=== PATIENT | female | born 1975 | race Caucasian/White ===

== ENCOUNTER 2024-03-29 08:37 | Outpatient (OUT) | payer MEDICAID, SELFPAY ==
--- NOTE | 2024-03-29 08:41 | VEIN_ITS ---
Patient Name: JENNIFER MIGUEL MR#: [id number] : 1975 Exam Date: 03/29/2024 Ordering Doctor: DR ROSCOE SOTO M.D. RADIOLOGY REPORT PROCEDURE: [facility] - OFFICE VISIT INITIAL COMPARISON: None. PROGRESS NOTES: [age] year old female who presents with a 10 year history of leg swelling, cramping, itching, dilated bulging veins. The patient's leg symptoms are symmetric bilaterally. There has been a progression of symptoms over time with slow healing lower left leg wound and recent spontaneous development of lower right leg seeping wound. This increases with prolonged leg dependency. The patient describes an improvement with rest, elevation, compression stockings. The patient denies any signs and symptoms to suggest arterial ischemia. The patient describes a family history varicose veins on maternal side. The patient has drinking and smoking history of : Occasional alcohol consumption. No tobacco use. Patient has a past medical history significant for hyperdensity, obesity, atrial fibrillation. The patient denies a history of deep venous thrombus or pulmonary embolus. See separate history and physical for medication list. No prior treatment for varicose or spider veins. Current use of compression stockings. After review of nurse notes, history and physical exam I discussed at length the pathophysiology of venous hypertension and possible treatments, therapies and strategies available. We discussed at length the importance of elevating the lower extremities above the level of the heart, increased physical activity and compression stocking use. Ultrasound venous reflux study performed today was discussed at length with the patient. The report demonstrates mildly dilated and incompetent right great saphenous, left great saphenous, right anterior accessory saphenous veins. Dilated management expert veins within lower right leg adjacent the spontaneously developed seeping wound.. PHYSICAL EXAM: The right leg demonstrates several varicosities, scattered spider veins, spontaneously developed seeping wound/ ulceration, moderate edema, moderate skin discoloration. The left leg demonstrates several varicosities, scattered spider veins, slow healing wound, but no ulceration, moderate edema, moderate skin discoloration. Both thighs, legs and feet were symmetrically warm to the touch. Good posterior tibial and dorsalis pedis pulses were present bilaterally. VEIN/ Facility [facility] Comprehensive IMPRESSION: 1. Bilateral lower extremity venous insufficiency 2. Bilateral lower extremity varicose veins 3. Moderate lower extremity subcutaneous edema 4. No flow significant arterial disease 5. CEAP: C6, EC, AP, UT PLAN: 1. Continued use of compression stockings 2. Elevated legs and increased physical activity symptomatic relief 3. Endovenous laser ablation of right great saphenous vein, left great saphenous vein, right anterior accessory saphenous vein, lower right leg management expert veins adjacent a wound. 4. Microfoam chemical ablation of incompetent branch saphenous varicosities bilaterally. 5. Sclerotherapy as needed for reticular and spider veins. Nurse notes, history and physical were reviewed and confirmed, see attached forms. The nurse was present throughout the physical exam and consultation Dictated by: Ruben Weaver M.D. on 03/29/2024 at 10:41 Approved by: Ruben Weaver M.D. on 03/29/2024 at 10:47
--- NOTE | 2024-03-29 08:41 | VEIN_ITS ---
Patient Name: JENNIFER MIGUEL MR#: [id number] : 1975 Exam Date: 03/29/2024 Ordering Doctor: DR ROSCOE SOTO M.D. RADIOLOGY REPORT PROCEDURE: VC EXT VENOUS REFLUX RISHI LMTD COMPARISON: None. INDICATIONS: I83.813 Pain due to varicose veins of bilateral legs TECHNIQUE: Duplex imaging of the lower extremity to assess the deep and superficial venous system for the presence of deep or superficial venous incompetence and to document the location and severity of disease. The study includes evaluation of the great saphenous vein (GSV), anterior accessory saphenous vein (AASV) and small saphenous vein (SSV). Patient scanned in reverse Trendelenburg and standing. FINDINGS: RIGHT LOWER EXTREMITY: Saphenofemoral Junction Reflux: Yes 8.4mm 1.4 sec GSV: Diam (mm) Reflux/ Time (sec) Proximal Thigh 7.8 Yes 0.9 Mid Thigh 5.1 Yes 0.5 Distal Thigh 4.7 No Prox Calf 3.9 Yes 0.4 Mid Calf 3.0 Yes 0.5 Saphenopopliteal Junction Reflux: 3.9mm No SSV: Proximal Calf 2.3 No Mid Calf 2.8 Yes 0.2 AASV: Proximal Thigh 5.5 Yes 0.6 Mid Thigh 3.5 Yes 0.5 Distal Thigh Thrombi: No acute or chronic thrombus. Compressibility: Normal. Flow: Mild deep venous reflux. Severe venous reflux in popliteal vein. Preforator: Dist/medial lower leg 3.6 mm with 1.8s reflux. Mid medial lower leg near wound 4.0 mm with 0.6s reflux. Tech Note: Heterogeneous area proximal/lateral calf in area of lump measures 1.3 x 0.9 x 0.7 cm. Incompetent varicose vein proximal medial lower leg measures 4.0 mm with 0.5s reflux. Varicose vein mid medial lower leg measures 4.0 mm with 0.7s reflux. LEFT LOWER EXTREMITY: Saphenofemoral Junction Reflux: Yes 9.3 mm 1.0 sec GSV: Diam (mm) Reflux/Time (sec) Proximal Thigh 6.0 Yes 1.1 Mid Thigh 4.2 Yes 0.7 Distal Thigh 3.7 Yes 0.4 Prox Calf 2.1 Yes 0.3 Mid Calf 1.4 Yes 1.0 Saphenopopliteal Junction Relux: 2.5 mm No SSV: Proximal Calf 2.4 No Mid Calf 1.9 Yes 0.3 AASV: Proximal Thigh 2.8 Yes 0.7 Mid Thigh 1.8 Yes 0.6 Distal Thigh Thrombi: No acute or chronic thrombus. Compressibility: Normal. Flow: Mild deep venous reflux. Comfort Advisor: Mid/medial lower leg anterior to wound 3.7 mm with 1.5s reflux. Tech Note: Hyperechoic area lateral/posterior distal thigh in area of lump measures 2.0 x 1.4 x 1.0 cm. Incompetent varicose vein proximal medial lower leg measures 4.0 mm with 0.5s reflux. CONCLUSION: 1. Mildly dilated and incompetent great saphenous veins bilaterally, right anterior accessory saphenous vein, and incompetent/dilated tso veins within lower right leg adjacent spontaneous occurring wound. Dictated by: Ruben Weaver M.D. on 03/29/2024 at 10:12 Approved by: Ruben Weaver M.D. on 03/29/2024 at 10:41
== END 2024-03-29 08:38 | disposition home or self-care (01) ==
PROVIDERS: PCP Podiatrist Foot & Ankle Surgery; Visit Provider Podiatrist Foot & Ankle Surgery
DX: I83.813 Varicose veins of bilateral lower extremities with pain (principal)
CPT/HCPCS: 93970; G0463

== ENCOUNTER 2024-05-02 09:20 | Outpatient (OUT) | payer MEDICAID, SELFPAY ==
[2024-05-02 07:37] VITALS: BP 112/68; PULSE 68; O2SAT 100; BMI 34.3
--- NOTE | 2024-05-02 07:37 | V.VEINS.HP ---
Vital Signs 05/02/24 07:37 Height 5 ft 4 in Weight 90.718 kg BMI 34.3 BP 112/68 BP Location Left Brachial BP Position Sitting BP Cuff Size Adult BP Source Manual Cuff Respiration 16 Pulse 68 Pulse Oximetry (%) 100 Varicose Veins Henrique Chahal MD personally performed the services described in this documentation, as scribed by Haylie Mazariegos RN in my presence and it is both accurate and complete. IHaylie RN, am scribing for, and in the presence of, Dr. Henrique Santos and in the presence of the patient. thigh: bilateral, knee: bilateral, calf: bilateral, ankle: bilateral and yang: bilateral aching and burning 8 5 years Worsened in recent months: Yes standing analgesics (Tylenol), bed rest, elevating extremities, compression stockings and exercise Reports edema and leg edema Family history of varicose veins: yes Has patient had previous lower extremity venous surgery: No Patient has previously received the following treatment(s) for lower extremity varicose veins: Reports none Does patient have a history of : yes Does patient intend to have future pregnancies: no Has patient had lower extremity venous scan with relux testing: Yes Support hose used: Yes Problems walking or doing physical activity: No How does it affect you: Can't stand for long periods of time Do you walk much: Yes Do you stand much: Yes Medication compliance: good Review of Systems ROS Narrative Henrique Chahal MD personally performed the services described in this documentation, as scribed by Haylie Mazariegos RN in my presence and it is both accurate and complete. Haylie Chahal RN, am scribing for, and in the presence of, Dr. Henrique Santos and in the presence of the patient. Status of ROS 10 or more systems reviewed and unremarkable except as noted in history and below Cardiovascular Reports: edema and swelling of feet/ankles Musculoskeletal Reports: extremity pain, extremity swelling and muscle cramps Integumentary/Breast Reports: itching, sores and non-healing lesion [facility] Medical History (Updated 05/02/24 @ 07:47 by Haylie Mazariegos RN) Left upper arm injury ?S49.92XA - Unspecified injury of left shoulder and upper arm, initial encounter (ICD-10) Iron deficiency ?E61.1 - Iron deficiency (ICD-10) Obesity ?E66.9 - Obesity, unspecified (ICD-10) Hypertension ?I10 - Essential (primary) hypertension (ICD-10) Atrial fibrillation ?I48.91 - Unspecified atrial fibrillation (ICD-10) Pain due to varicose veins of both lower extremities ?I83.813 - Varicose veins of bilateral lower extremities with pain (ICD-10) Surgical History (Updated 05/02/24 @ 07:47 by Haylie Mazariegos RN) History of cholecystectomy ?Z90.49 - Acquired absence of other specified parts of digestive tract (ICD-10) History of appendectomy ?Z90.49 - Acquired absence of other specified parts of digestive tract (ICD-10) History of tubal ligation ?Z98.51 - Tubal ligation status (ICD-10) H/O cardiac radiofrequency ablation ?Z98.890 - Other specified postprocedural states (ICD-10) Family History (Updated 05/02/24 @ 07:48 by Haylie Mazariegos, RN) Father Family history of diabetes mellitus Family history of hypertension Mother Family history of hypertension Varicose veins of bilateral lower extremities with pain Grandmother Family history of stroke Social History (Updated 05/02/24 @ 07:49 by Haylie Mazariegos, RN) Within the past year, how often did you have a drink containing alcohol: 2-4 times a month Smoking status: Never smoker Non-prescribed substance use: denies use Meds Home Medications and Allergies Home Medications ?Medication ?Instructions ?Recorded ?Confirmed ?Type alprazolam 0.5 mg tablet 0.5 mg PO DAILY 05/02/24 05/02/24 History amlodipine 10 mg tablet 10 mg PO DAILY 05/02/24 05/02/24 History apixaban 5 mg tablet (Eliquis) 5 mg PO BID 05/02/24 05/02/24 History cetirizine 10 mg tablet (24Hour 10 mg PO DAILY 05/02/24 05/02/24 History Allergy) hydroxyzine HCl 25 mg tablet 25 mg PO BID 05/02/24 05/02/24 History losartan 100 1 tab PO DAILY 05/02/24 05/02/24 History mg-hydrochlorothiazide 25 mg tablet (Hyzaar) phentermine 37.5 mg tablet 37.5 mg PO DAILY 05/02/24 05/02/24 History (Adipex-P) potassium chloride 20 mEq oral 20 meq PO DAILY 05/02/24 05/02/24 History packet (Klor-Con) tizanidine 4 mg capsule 4 mg PO BID PRN muscle spasticity 05/02/24 05/02/24 History Allergies Allergy/AdvReac Type Severity Reaction Status Date / Time acetaminophen [From Percocet] Allergy Unknown Verified 04/14/24 17:03 cefaclor [From Ceclor] Allergy Unknown Verified 04/14/24 17:03 oxycodone [From Percocet] Allergy Unknown Verified 04/14/24 17:03 sulfamethoxazole Allergy Unknown Verified 04/14/24 17:03 [From Bactrim] trimethoprim [From Bactrim] Allergy Unknown Verified 04/14/24 17:03 Exam Narrative Exam Narrative: I, Henrique Santos MD personally performed the services described in this documentation, as scribed by Haylie Mazariegos RN in my presence and it is both accurate and complete. IHaylie RN, am scribing for, and in the presence of, Dr. Henrique Santos and in the presence of the patient. Constitutional Documenting provider has reviewed patient's vital signs: yes Common normals: oriented x3 Nutritional appearance: overweight Lymph Lymphatic: no lymphedema noted Cardio Peripheral pulses: posterior tibial pulses present and dorsalis pedis pulses present Extremity General: calf tenderness, edema and other findings Right lower extremity: lower leg Right lower leg: inspection and palpation Left lower extremity: lower leg Left lower leg: inspection and palpation Neuro Common normals: oriented x3 Assessment and Plan Assessment and Plan (1) Pain due to varicose veins of both lower extremities: Plan Plan of care: Risks and benefits of the procedure were discussed at length and informed written consent was obtained.? Time-out completed for verification of correct patient, procedure and site.? Staff present during time-out: Haylie Mazariegos RN,? Henrique Santos MD, [facility]. Time Out Time___958____ Patient prepped and procedure performed in usual sterile fashion. Risk of injury related to use of Diode laser and/or laser devices? __AG___ ? Serial number of laser used :? [id number] Control panel self test performed, electrical cords in good condition, floor is dry, basin of water available, fire extinguisher in close proximity_AG__ Polycarbonate goggles available and Laser warning signs outside of doors___AG___ Eye protection provided to patient and staff in room_AG___ Use of laser retardant drapes and dull blackened instruments as directed__AG___ Use of nonflammable prep solutions and use of saline soaked sponges to protect tissues as indicated _AG___ Length ____32____ cm Laser operated by __Dr. Santos Physician verbal confirmation laser locked in place__AG__ Laser start time (date and time) __05/02/24@_1012 Laser stop time(date and time) __05/02/24@__1016 Bello _8.0___ Average laser use 1543__Joules Average laser use____193____seconds Pulse continuous ___AG_? Pulse intermittent ___ Amount of Tumescent used __200____ Evaluated patient for signs and symptoms of electrical injury __AG___ ? Skin clear at insertion site __AG___ Patient tolerated procedure well.? Right leg Coban dressing applied to access site.? Applied Right thigh high leg compression stocking. Will return on 05/08/24 for Right leg limited venous ultrasound and exam. IHenrique MD personally performed the services described in this documentation, as scribed by Haylie Mazariegos RN in my presence and it is both accurate and complete. IHaylie RN, am scribing for, and in the presence of, Dr. Henrique Santos and in the presence of the patient. Procedures Procedure Note Date of procedure: 05/02/24 Pre-op diagnosis: I83.813 Procedure: EVLT of right GSV Surgeon: Henrique Santos
--- NOTE | 2024-05-02 07:59 | P.DS_ITS ---
Discharge Plan Discharge Disposition: Home, Self-Care Outpatient Diagnostics: VC Facility EST LMTD (Routine) Timeframe: 2 Weeks Facility: [facility] - Location: [facility]in Center Ordered By: Henrique Santos VC EXT Venous RT LMTD (Routine) Timeframe: 2 Weeks Facility: [facility] - Location: Vein Center Ordered By: Henrique Santos Follow Up Appointments: 05/08/24 Print Language: Tajik Discharge Date/Time: 05/02/24 10:30
--- NOTE | 2024-05-02 09:23 | VEIN_ITS ---
[address] [address] Patient Name: JENNIFER MIGUEL MRN: [id number] date: 1975 Sex: F Assigned Patient Location: Current Patient Location: Accession/Order Number: [id number] Exam Date: 05/02/2024 09:35 Report Date: 05/02/2024 10:31 At the request of: ROSCOE SOTO Procedure: VC Endovenous Ablation 1VeinRT EXAMINATION: VC Endovenous Ablation 1Vein, right great saphenous vein HISTORY: Pain due to varicose veins of bilateral legs I83.813 COMPARISON: No relevant comparison available. TECHNIQUE: The risks and benefits of the procedure had been previously discussed, and were rediscussed at length. Informed written consent was obtained. Mckenna Trinh and Haylie Palencia assisted. Time out procedure was performed. The right lower extremity was prepared and draped in the usual sterile fashion to allow knee flexion in the sterile field. Duplex ultrasound probe was draped in a sterile cover, sterile transmission gel was used. Venous mapping was performed with the areas of dilation and large tributaries marked. The total length was 32 cm from the entry 3 cm below the knee to 3 cm below the saphenofemoral junction. The diameter of the greater saphenous vein ranged from 4-8 mm. A 30 gauge needle and 1% buffered lidocaine was used to anesthetize the entry site. A 4 mm incision was made with a scalpel and the saphenous vein was entered percutaneously under direct ultrasound guidance with a micropuncture set, a single stick was successful in gaining access. A micro-guide wire was inserted and the needle removed. A micro-set including a dilator was inserted over the microwire and the needle and dilator were removed. A 0.018 guide wire was inserted through the micro-set and threaded through the saphenous vein to the saphenofemoral junction. The dilator was removed and an introducer sheath was inserted over the wire until the end of the sheath entered the saphenofemoral junction. The dilator and wire were removed and the 600 micron fiber was introduced and placed and positioned so that it extended beyond the sheath and was 3 cm peripheral to the saphenofemoral femoral junction. Final position of the fiber was determined by ultrasound guidance and duplex imaging. Tumescent anesthetic was delivered by ultrasound guidance. 200 cc of fluid was delivered along the entire course of the saphenous vein. The solution consisted of 1000 cc of normal saline with 40 mL of 1% lidocaine and 20 mL of sodium bicarbonate. A final positioning check was made. The energy source was turned on by means of the foot pedal and the fiber and sheath were withdrawn. The total number of Joules delivered was 1543. The laser was active for 193seconds under continuous pulse, average laser use of 8 J. Laser start time 10:12 AM 05/02/2024 . Laser stop time 10:16 AM 05/02/2024 . A duplex ultrasound revealed compressibility and flow at the saphenofemoral junction immediately after the procedure. Hemostasis at the access site was achieved. The skin incision of the saphenous vein was closed with a 4 x 4. A compression stocking was applied. Postop instructions were given. A follow up appointment was recommended and scheduled. The patient tolerated the procedure well and was discharged in good condition . VEIN/VC Endovenous Ablation 1VeinRT IMPRESSION: Technically successful endovenous laser ablation of the right great saphenous vein Electronically authenticated by: ROSCOE SOTO Date: 05/02/2024 10:31
[2024-05-02] MEDS: LIDOCAINE HCL 1% 100 MG/10 ML MDV INJ (10:36)
[2024-05-02] MEDS: 0.9 % SODIUM CHLORIDE 500 ML, LIDOCAINE HCL 20 ML, SODIUM BICARBONATE 10 MEQ INJ (10:38)
== END 2024-05-02 10:30 | disposition home or self-care (01) ==
LOC: VC 09:20
PROVIDERS: PCP Radiology Diagnostic Radiology; Visit Provider Radiology Diagnostic Radiology
DX: I83.813 Varicose veins of bilateral lower extremities with pain (principal)
CPT/HCPCS: 36478

== ENCOUNTER 2024-05-08 13:14 | Outpatient (OUT) | payer MEDICAID, SELFPAY ==
[2024-05-08 11:17] VITALS: BP 136/82; PULSE 71; O2SAT 98; BMI 34.1
--- NOTE | 2024-05-08 11:17 | VEINCLINIC_ITS ---
Vital Signs 05/08/24 11:17 Height 5 ft 4 in Weight 90 kg BMI 34.1 BP 136/82 BP Location Right Brachial BP Position Sitting BP Cuff Size Adult BP Source Manual Cuff Respiration 16 Pulse 71 Pulse Oximetry (%) 98 Varicose Veins Patient is in this day for follow up ultrasound post EVLT of right leg GSV. Henrique Chahal MD personally performed the services described in this documentation, as scribed by Letty Trinh RVT, RDMS in my presence and it is both accurate and complete. Letty Chahal RVT, RDMS, am scribing for, and in the presence of, Dr. Henrique Santos and in the presence of the patient. thigh: bilateral, knee: bilateral, calf: bilateral, ankle: bilateral and yang: bilateral aching and burning 8 5 years Worsened in recent months: Yes standing analgesics (Tylenol), bed rest, elevating extremities, compression stockings and exercise Reports edema and leg edema Family history of varicose veins: yes Has patient had previous lower extremity venous surgery: No Patient has previously received the following treatment(s) for lower extremity varicose veins: Reports none Does patient have a history of : yes Does patient intend to have future pregnancies: no Has patient had lower extremity venous scan with relux testing: Yes Support hose used: Yes Problems walking or doing physical activity: No How does it affect you: Can't stand for long periods of time Do you walk much: Yes Do you stand much: Yes Medication compliance: good Review of Systems ROS Narrative Patient complains of right medial thigh tenderness. Henrique Chahal MD personally performed the services described in this documentation, as scribed by Letty Trinh RVT, RDMS in my presence and it is both accurate and complete. Letty Chahal RVT, RDMS, am scribing for, and in the presence of, Dr. Henrique Santos and in the presence of the patient. Status of ROS 10 or more systems reviewed and unremark able except as noted in history and below Cardiovascular Reports: edema and swelling of feet/ankles Musculoskeletal Reports: extremity pain, extremity swelling and muscle cramps Integumentary/Breast Reports: itching, sores and non-healing lesion [facility] Medical History (Updated 05/02/24 @ 07:47 by Haylie Mazariegos RN) Left upper arm injury ?S49.92XA - Unspecified injury of left shoulder and upper arm, initial encounter (ICD-10) Iron deficiency ?E61.1 - Iron deficiency (ICD-10) Obesity ?E66.9 - Obesity, unspecified (ICD-10) Hypertension ?I10 - Essential (primary) hypertension (ICD-10) Atrial fibrillation ?I48.91 - Unspecified atrial fibrillation (ICD-10) Pain due to varicose veins of both lower extremities ?I83.813 - Varicose veins of bilateral lower extremities with pain (ICD-10) Surgical History (Updated 05/02/24 @ 07:47 by Haylie Mazareigos, STEFANO) History of cholecystectomy ?Z90.49 - Acquired absence of other specified parts of digestive tract (ICD- 10) History of appendectomy ?Z90.49 - Acquired absence of other specified parts of digestive tract (ICD- 10) History of tubal ligation ?Z98.51 - Tubal ligation status (ICD-10) H/O cardiac radiofrequency ablation ?Z98.890 - Other specified postprocedural states (ICD-10) Family History (Updated 05/02/24 @ 07:48 by Haylie Mazariegos, STEFANO) Father Family history of diabetes mellitus Family history of hypertension Mother Family history of hypertension Varicose veins of bilateral lower extremities with pain Grandmother Family history of stroke Social History (Updated 05/02/24 @ 07:49 by Haylie Mazariegos, STEFANO) Within the past year, how often did you have a drink containing alcohol: 2-4 times a month Smoking status: Never smoker Non-prescribed substance use: denies use Meds Home Medications and Allergies Home Medications ?Medication ?Instructions ?Recorded ?Confirmed ?Type alprazolam 0.5 mg tablet 0.5 mg PO DAILY 05/02/24 05/02/24 History amlodipine 10 mg tablet 10 mg PO DAILY 05/02/24 05/02/24 History apixaban 5 mg tablet (Eliquis) 5 mg PO BID 05/02/24 05/02/24 History cetirizine 10 mg tablet (24Hour 10 mg PO DAILY 05/02/24 05/02/24 History Allergy) hydroxyzine HCl 25 mg tablet 25 mg PO BID 05/02/24 05/02/24 History losartan 100 1 tab PO DAILY 05/02/24 05/02/24 History mg-hydrochlorothiazide 25 mg tablet (Hyzaar) phentermine 37.5 mg tablet 37.5 mg PO DAILY 05/02/24 05/02/24 History (Adipex-P) potassium chloride 20 mEq oral 20 meq PO DAILY 05/02/24 05/02/24 History packet (Klor-Con) tizanidine 4 mg capsule 4 mg PO BID PRN muscle spasticity 05/02/24 05/02/24 Hist ory Allergies Allergy/AdvReac Type Severity Reaction Status Date / Time acetaminophen [From Percocet] Allergy Unknown Verified 04/14/24 17:03 cefaclor [From Ceclor] Allergy Unknown Verified 04/14/24 17:03 oxycodone [From Percocet] Allergy Unknown Verified 04/14/24 17:03 sulfamethoxazole Allergy Unknown Verified 04/14/24 17:03 [From Bactrim] trimethoprim [From Bactrim] Allergy Unknown Verified 04/14/24 17:03 Exam Narrative Exam Narrative: Henrique Chahal MD personally performed the services described in this documentation, as scribed by Letty Trinh RVT, RDMS in my presence and it is both accurate and complete. Letty Chahal RVT, RDMS, am scribing for, and in the presence of, Dr. Henrique Santos and in the presence of the patient. Constitutional Documenting provider has reviewed patient's vital signs: yes Common normals: oriented x3 Nutritional appearance: overweight Lymph Lymphatic: no lymphedema noted Cardio Peripheral pulses: posterior tibial pulses present and dorsalis pedis pulses present Extremity General: calf tenderness, edema and other findings Right lower extremity: lower leg Right lower leg: inspection and palpation Left lower extremity: lower leg Left lower leg: inspection and palpation Neuro Common normals: oriented x3 Results Imaging Venous US: Radiologist's impression: Ultrasound demonstrates Heat induced thrombus visualized 1.7cm from the SFJ. The heat induced thrombus extends from groin to proximal calf. Assessment and Plan Assessment and Plan (1) Pain due to varicose veins of both lower extremities: Plan Patient in today for follow up ultrasound of lower extremity following treatment of EVLT of right leg GSV completed on 05/02/2024. Plan is for the patient to return for EVLT of left leg GSV. Patient is going to wait to schedule next procedure.
--- NOTE | 2024-05-08 13:11 | P.DS_ITS ---
Discharge Plan Discharge Disposition: Home, Self-Care Outpatient Diagnostics: VC Endovenous Ablation 1VeinLT (Routine) Timeframe: 2 Weeks Facility: [facility] - Location: Vein Center Ordered By: Henrique Santos Plan of Treatment: EVLT of left leg GSV. Print Language: Ugandan Discharge Date/Time: 05/08/24 13:53
--- NOTE | 2024-05-08 13:14 | VEIN_ITS ---
Patient Name: JENNIFER MIGUEL MR#: [id number] : 1975 Exam Date: 05/08/2024 Ordering Doctor: DR HENRIQUE SOTO M.D. RADIOLOGY REPORT PROCEDURE: VC EXT VENOUS RT LMTD COMPARISON: None. INDICATIONS: I80.01 - Phlebitis and thrombophlebitis of superficial ve... TECHNIQUE: Lower extremity gomez scale and Duplex Doppler evaluation of the deep venous system from the inguinal ligament through the calf veins. FINDINGS: REGION: Right lower extremity. THROMBI: Negative for DVT. Heat induced thrombus visualized 1.7cm from the SFJ. The heat induced thrombus extends from groin to proximal calf. COMPRESSIBILITY: Non-compressible segments corresponding to thrombus FLOW: Areas of no flow corresponding to thrombus CONCLUSION: Post ablation occlusion of the treated right great saphenous vein with heat induced thrombus 1.7 cm from the saphenofemoral junction Dictated by: Henrique Soto MD on 05/08/2024 at 13:30 Approved by: Henrique Soto MD on 05/08/2024 at 13:31
--- NOTE | 2024-05-08 13:14 | VEIN_ITS ---
Patient Name: JENNIFER MIGUEL MR#: [id number] : 1975 Exam Date: 05/08/2024 Ordering Doctor: DR HENRIQUE SOTO M.D. RADIOLOGY REPORT PROCEDURE: FACILITY EST LMTD VEIN CENTER - OFFICE VISIT FOLLOW UP COMPARISON: None. PROGRESS NOTES: The patient reports severe pain of the medial right thigh following the procedure. The patient came the emergency room where she was given pain medication. The pain has partially subsided but still remains moderate. The patient continues to wear her compression stocking as directed. I informed the patient that she likely had thrombophlebitis and recommended ibuprofen 400 milligrams 2-3 times per day over the next 7-10 days until the pain subsides. The thrombosed right great saphenous vein can be palpated. No erythema or warmth to suggest cellulitis or thrombophlebitis. No active ulceration. No bruising Review of the ultrasound performed the same day demonstrates occlusive thrombus extending throughout the treated right great saphenous vein with heat induced thrombus 1.7 cm from the saphenofemoral junction. The patient expressed a desire to hold her treatments until the pain went down on the right leg. VEIN/ Facility EST LMTD IMPRESSION: 1. Successful ablation of the right great saphenous vein(s). 2. Postprocedural thrombophlebitis. PLAN: Ibuprofen (2) 200 milligram tablets 2-3 times per day for the next 7-10 days. The patient was instructed to follow-up after her pain subsided for additional treatments. Nurse notes, history and physical were reviewed and confirmed, see attached forms. The nurse was present throughout the physical exam and consultation Dictated by: Henrique Soto MD on 05/08/2024 at 13:55 Approved by: Henrique Soto MD on 05/08/2024 at 13:57
--- NOTE | 2024-05-08 13:28 | V.VEINS.HP ---
Vital Signs 05/08/24 11:17 Height 5 ft 4 in Weight 90 kg BMI 34.1 Varicose Veins Henrique Chahal MD personally performed the services described in this documentation, as scribed by Letty Trinh RVT, RDMS in my presence and it is both accurate and complete. Letty Chahal RVT, RDMS, am scribing for, and in the presence of, Dr. Henrique Santos and in the presence of the patient. thigh: bilateral, knee: bilateral, calf: bilateral, ankle: bilateral and yang: bilateral aching and burning 8 5 years Worsened in recent months: Yes standing analgesics (Tylenol), bed rest, elevating extremities, compression stockings and exercise Reports edema and leg edema Family history of varicose veins: yes Has patient had previous lower extremity venous surgery: No Patient has previously received the following treatment(s) for lower extremity varicose veins: Reports none Does patient have a history of : yes Does patient intend to have future pregnancies: no Has patient had lower extremity venous scan with relux testing: Yes Support hose used: Yes Problems walking or doing physical activity: No How does it affect you: Can't stand for long periods of time Do you walk much: Yes Do you stand much: Yes Medication compliance: good Review of Systems ROS Narrative Henrique Chahal MD personally performed the services described in this documentation, as scribed by Letty Trinh RVT, RDMS in my presence and it is both accurate and complete. I, Letty Trinh RVT, RDMS, am scribing for, and in the presence of, Dr. Henrique Santos and in the presence of the patient. Status of ROS 10 or more systems reviewed and unremarkable except as noted in history and below Cardiovascular Reports: edema and swelling of feet/ankles Musculoskeletal Reports: extremity pain, extremity swelling and muscle cramps Integumentary/Breast Reports: itching, sores and non-healing lesion [facility] Medical History (Updated 05/02/24 @ 07:47 by Haylie Mazariegos RN) Left upper arm injury ?S49.92XA - Unspecified injury of left shoulder and upper arm, initial encounter (ICD-10) Iron deficiency ?E61.1 - Iron deficiency (ICD-10) Obesity ?E66.9 - Obesity, unspecified (ICD-10) Hypertension ?I10 - Essential (primary) hypertension (ICD-10) Atrial fibrillation ?I48.91 - Unspecified atrial fibrillation (ICD-10) Pain due to varicose veins of both lower extremities ?I83.813 - Varicose veins of bilateral lower extremities with pain (ICD-10) Surgical History (Updated 05/02/24 @ 07:47 by Haylie Mazariegos RN) History of cholecystectomy ?Z90.49 - Acquired absence of other specified parts of digestive tract (ICD-10) History of appendectomy ?Z90.49 - Acquired absence of other specified parts of digestive tract (ICD-10) History of tubal ligation ?Z98.51 - Tubal ligation status (ICD-10) H/O cardiac radiofrequency ablation ?Z98.890 - Other specified postprocedural states (ICD-10) Family History (Updated 05/02/24 @ 07:48 by Haylie Mazariegos, RN) Father Family history of diabetes mellitus Family history of hypertension Mother Family history of hypertension Varicose veins of bilateral lower extremities with pain Grandmother Family history of stroke Social History (Updated 05/02/24 @ 07:49 by Haylie Mazariegos RN) Within the past year, how often did you have a drink containing alcohol: 2-4 times a month Smoking status: Never smoker Non-prescribed substance use: denies use Meds Home Medications and Allergies Home Medications ?Medication ?Instructions ?Recorded ?Confirmed ?Type alprazolam 0.5 mg tablet 0.5 mg PO DAILY 05/02/24 05/02/24 History amlodipine 10 mg tablet 10 mg PO DAILY 05/02/24 05/02/24 History apixaban 5 mg tablet (Eliquis) 5 mg PO BID 05/02/24 05/02/24 History cetirizine 10 mg tablet (24Hour 10 mg PO DAILY 05/02/24 05/02/24 History Allergy) hydroxyzine HCl 25 mg tablet 25 mg PO BID 05/02/24 05/02/24 History losartan 100 1 tab PO DAILY 05/02/24 05/02/24 History mg-hydrochlorothiazide 25 mg tablet (Hyzaar) phentermine 37.5 mg tablet 37.5 mg PO DAILY 05/02/24 05/02/24 History (Adipex-P) potassium chloride 20 mEq oral 20 meq PO DAILY 05/02/24 05/02/24 History packet (Klor-Con) tizanidine 4 mg capsule 4 mg PO BID PRN muscle spasticity 05/02/24 05/02/24 History Allergies Allergy/AdvReac Type Severity Reaction Status Date / Time acetaminophen [From Percocet] Allergy Unknown Verified 04/14/24 17:03 cefaclor [From Ceclor] Allergy Unknown Verified 04/14/24 17:03 oxycodone [From Percocet] Allergy Unknown Verified 04/14/24 17:03 sulfamethoxazole Allergy Unknown Verified 04/14/24 17:03 [From Bactrim] trimethoprim [From Bactrim] Allergy Unknown Verified 04/14/24 17:03 Exam Narrative Exam Narrative: Henrique Chahal MD personally performed the services described in this documentation, as scribed by Letty Trinh RVT, RDMS in my presence and it is both accurate and complete. Letty Chahal RVT, RDMS, am scribing for, and in the presence of, Dr. Henrique Santos and in the presence of the patient. Results Imaging Venous US: Radiologist's impression: The ultrasound demonstrates Heat induced thrombus visualized 1.7cm from the SFJ. The heat induced thrombus extends from groin to proximal calf. Assessment and Plan Assessment and Plan (1) Pain due to varicose veins of both lower extremities: Plan Patient in today for follow up ultrasound of lower extremity following treatment of EVLT of right leg GSV completed on 05/02/2024. Plan is for the patient to return for EVLT of left leg GSV.
== END 2024-05-08 13:53 | disposition home or self-care (01) ==
LOC: VC 13:14
PROVIDERS: PCP Radiology Diagnostic Radiology; Visit Provider Radiology Diagnostic Radiology
DX: I80.01 Phlebitis and thrombophlebitis of superficial vessels of right lower extremity (principal)
CPT/HCPCS: 93971; G0463

== ENCOUNTER 2024-05-26 12:31 | Outpatient (OUT) | payer MEDICAID, SELFPAY ==
--- NOTE | 2024-05-26 09:33 | V.VEINS.HP ---
Varicose Veins Patient is in this day for EVLT of left GSV. Ruben Chahal MD personally performed the services described in this documentation, as scribed by Haylie Mazariegos RN in my presence and it is both accurate and complete. Haylie Chahal RN, am scribing for, and in the presence of, Dr. Ruben Weaver and in the presence of the patient. thigh: bilateral, knee: bilateral, calf: bilateral, ankle: bilateral and yang: bilateral aching and burning 8 5 years Worsened in recent months: Yes standing analgesics (Tylenol), bed rest, elevating extremities, compression stockings and exercise Reports edema and leg edema Family history of varicose veins: yes Has patient had previous lower extremity venous surgery: No Patient has previously received the following treatment(s) for lower extremity varicose veins: Reports none Does patient have a history of : yes Does patient intend to have future pregnancies: no Has patient had lower extremity venous scan with relux testing: Yes Support hose used: Yes Problems walking or doing physical activity: No How does it affect you: Can't stand for long periods of time Do you walk much: Yes Do you stand much: Yes Medication compliance: good Review of Systems ROS Narrative Ruben Chahal MD personally performed the services described in this documentation, as scribed by Haylie Mazariegos RN in my presence and it is both accurate and complete. Haylie Chahal RN, am scribing for, and in the presence of, Dr. Ruben Weaver and in the presence of the patient. Status of ROS 10 or more systems reviewed and unremarkable except as noted in history and below Cardiovascular Reports: edema and swelling of feet/ankles Musculoskeletal Reports: extremity pain, extremity swelling and muscle cramps Integumentary/Breast Reports: itching, sores and non-healing lesion [facility] Medical History (Updated 05/02/24 @ 07:47 by Haylie Mazariegos RN) Left upper arm injury ?S49.92XA - Unspecified injury of left shoulder and upper arm, initial encounter (ICD-10) Iron deficiency ?E61.1 - Iron deficiency (ICD-10) Obesity ?E66.9 - Obesity, unspecified (ICD-10) Hypertension ?I10 - Essential (primary) hypertension (ICD-10) Atrial fibrillation ?I48.91 - Unspecified atrial fibrillation (ICD-10) Pain due to varicose veins of both lower extremities ?I83.813 - Varicose veins of bilateral lower extremities with pain (ICD-10) Surgical History (Updated 05/02/24 @ 07:47 by Haylie Mazariegos RN) History of cholecystectomy ?Z90.49 - Acquired absence of other specified parts of digestive tract (ICD-10) History of appendectomy ?Z90.49 - Acquired absence of other specified parts of digestive tract (ICD-10) History of tubal ligation ?Z98.51 - Tubal ligation status (ICD-10) H/O cardiac radiofrequency ablation ?Z98.890 - Other specified postprocedural states (ICD-10) Family History (Updated 05/02/24 @ 07:48 by Haylie Mazariegos, STEFANO) Father Family history of diabetes mellitus Family history of hypertension Mother Family history of hypertension Varicose veins of bilateral lower extremities with pain Grandmother Family history of stroke Social History (Updated 05/02/24 @ 07:49 by Haylie Mazariegos RN) Within the past year, how often did you have a drink containing alcohol: 2-4 times a month Smoking status: Never smoker Non-prescribed substance use: denies use Meds Home Medications and Allergies Home Medications ?Medication ?Instructions ?Recorded ?Confirmed ?Type alprazolam 0.5 mg tablet 0.5 mg PO DAILY 05/02/24 05/02/24 History amlodipine 10 mg tablet 10 mg PO DAILY 05/02/24 05/02/24 History apixaban 5 mg tablet (Eliquis) 5 mg PO BID 05/02/24 05/02/24 History cetirizine 10 mg tablet (24Hour 10 mg PO DAILY 05/02/24 05/02/24 History Allergy) hydroxyzine HCl 25 mg tablet 25 mg PO BID 05/02/24 05/02/24 History losartan 100 1 tab PO DAILY 05/02/24 05/02/24 History mg-hydrochlorothiazide 25 mg tablet (Hyzaar) phentermine 37.5 mg tablet 37.5 mg PO DAILY 05/02/24 05/02/24 History (Adipex-P) potassium chloride 20 mEq oral 20 meq PO DAILY 05/02/24 05/02/24 History packet (Klor-Con) tizanidine 4 mg capsule 4 mg PO BID PRN muscle spasticity 05/02/24 05/02/24 History Allergies Allergy/AdvReac Type Severity Reaction Status Date / Time acetaminophen [From Percocet] Allergy Unknown Verified 04/14/24 17:03 cefaclor [From Ceclor] Allergy Unknown Verified 04/14/24 17:03 oxycodone [From Percocet] Allergy Unknown Verified 04/14/24 17:03 sulfamethoxazole Allergy Unknown Verified 04/14/24 17:03 [From Bactrim] trimethoprim [From Bactrim] Allergy Unknown Verified 04/14/24 17:03 Exam Narrative Exam Narrative: IRuben MD personally performed the services described in this documentation, as scribed by Haylie Mazariegos RN in my presence and it is both accurate and complete. I, Haylie Mazariegos RN, am scribing for, and in the presence of, Dr. Ruben Weaver and in the presence of the patient. Constitutional Documenting provider has reviewed patient's vital signs: yes Common normals: oriented x3 Nutritional appearance: overweight Lymph Lymphatic: no lymphedema noted Cardio Peripheral pulses: posterior tibial pulses present and dorsalis pedis pulses present Extremity General: calf tenderness, edema and other findings Right lower extremity: lower leg Right lower leg: inspection and palpation Left lower extremity: lower leg Left lower leg: inspection and palpation Neuro Common normals: oriented x3 Assessment and Plan Assessment and Plan (1) Pain due to varicose veins of both lower extremities: Plan Plan of care: Risks and benefits of the procedure were discussed at length and informed written consent was obtained.? Time-out completed for verification of correct patient, procedure and site.? Staff present during time-out: Haylie Mazariegos RN,? Ruben Weaver MD, Letty Trinh [facility]. Time Out Time Patient prepped and procedure performed in usual sterile fashion. Risk of injury related to use of Diode laser and/or laser devices? __AG___ ? Serial number of laser used :? [id number] Control panel self test performed, electrical cords in good condition, floor is dry, basin of water available, fire extinguisher in close proximity_AG__ Polycarbonate goggles available and Laser warning signs outside of doors___AG___ Eye protection provided to patient and staff in room_AG___ Use of laser retardant drapes and dull blackened instruments as directed__AG___ Use of nonflammable prep solutions and use of saline soaked sponges to protect tissues as indicated _AG___ Length cm Laser operated by ___Dr. Wevaer Physician verbal confirmation laser locked in place__AG__ Laser start time (date and time) _05/26/24@ Laser stop time(date and time) _05/26/24@ Bello _8.0___ Average laser use Joules Average laser use seconds Pulse continuous ___AG_? Pulse intermittent ___ Amount of Tumescent used Evaluated patient for signs and symptoms of electrical injury __AG___ ? Skin clear at insertion site __AG___ Patient tolerated procedure well.? Left leg Coban dressing applied to access site.? Applied Left thigh high leg compression stocking. Will return on // for Left leg limited venous ultrasound and exam. IRuben MD personally performed the services described in this documentation, as scribed by Haylie aMzariegos RN in my presence and it is both accurate and complete. I, Haylie Mazariegos RN, am scribing for, and in the presence of, Dr. Ruben Weaver and in the presence of the patient. Procedures Procedure Instructions Procedures EVLT of left GSV.
--- NOTE | 2024-05-26 09:42 | W.VEIN ---
Discharge Plan Discharge Disposition: Home, Self-Care Outpatient Diagnostics: VC Facility EST LMTD (Routine) Timeframe: 2 Weeks Facility: [facility] - Location: Vein Center Ordered By: Ruben Weaver VC EXT Venous LT Limited (Routine) Timeframe: 2 Weeks Facility: [facility] - Location: Vein Center Ordered By: Ruben Weaver Patient Instructions: Endovenous Ablation (DC) Print Language: Bengali
[2024-05-26 09:43] VITALS: BP 122/70; PULSE 67; O2SAT 97; BMI 34.3
--- NOTE | 2024-05-26 12:35 | VEIN_ITS ---
[address] [address] Patient Name: JENNIFER MIGUEL MRN: [id number] date: 1975 Sex: F Assigned Patient Location: Current Patient Location: Accession/Order Number: [id number] Exam Date: 05/26/2024 12:40 Report Date: 05/26/2024 14:55 At the request of: ROSCOE SOTO Procedure: VC Endovenous Ablation 1VeinLT EXAMINATION: VC Endovenous Ablation 1VeinLT HISTORY: I83.813 - Varicose veins of bilateral lower extremities w... The risks and benefits of the procedure had been previously discussed, and were rediscussed at length. Informed written consent was obtained. Haylie Mazariegos RN and Letty Trinh RDMS, RVT assisted. Time out procedure was performed. The left lower extremity was prepared and draped in the usual sterile fashion to allow knee flexion in the sterile field. Duplex ultrasound probe was draped in a sterile cover, sterile transmission gel was used. Venous mapping was performed with the areas of dilation and large tributaries marked. The total length was 35 cm from the entry proximal calf to 3 cm below the Saphenofemoral junction. The diameter of the left great saphenous vein ranged from 6.0 mm. A 30 gauge needle and 1% buffered lidocaine was used to anesthetize the entry site. A 4 mm incision was made with a scalpel and the saphenous vein was entered percutaneously under direct ultrasound guidance with a micropuncture set, a single stick was successful in gaining access. A micro-guide wire was inserted and the needle removed. A micro-set including a dilator was inserted over the microwire and the needle and dilator were removed. A guide wire was inserted through the micro-set and guided through the saphenous vein to the saphenofemoral junction. The dilator was removed and an introducer sheath was inserted over the wire until the end of the sheath entered the saphenofemoral junction. The dilator and wire were removed and the 600 micron fiber was introduced and placed and positioned so that it extended beyond the sheath and was 3 cm distal to the saphenofemoral or saphenopopliteal junction. Final position of the fiber was determined by ultrasound guidance and duplex imaging. Tumescent anesthetic was delivered by ultrasound guidance. 200 cc of fluid was delivered along the entire course of the saphenous vein. The solution consisted of 1000 cc of normal saline with 40 mL of 1% lidocaine and 20 mL of sodium bicarbonate. A final positioning check was made. The energy source was turned on by means of the foot pedal and the fiber and sheath were withdrawn. The total number of Joules delivered was 1854. The laser was active for 232 seconds under continuous pulse, average laser use of 8 J. Laser start time: 1:15 PM Laser stop time: 1:20 PM Date: 05/26/2024. A duplex ultrasound revealed compressibility and flow at the saphenofemoral junction immediately after the procedure. Hemostasis at the access site was achieved. The skin incision of the saphenous vein was closed with a 4 x 4. A compression stocking was applied. Postop instructions were given. A follow up appointment was recommended and scheduled. The patient tolerated the procedure well. Electronically authenticated by: LUIS ALBERTO ANDERSON Date: 05/26/2024 14:55
--- OUTSIDE RECORDS SUMMARY | 2024-05-26 12:37 | XMS_ITS | CCD ---
Author Organization [facility] Care Team Providers Care Rodeo Performer Name Role Phone Roscoe Stout MD Primary Care Provider VALERIA GARIBAY Attending Unavailable ROSCOE STOUT Referring Unavailable ROSCOE STOUT Primary Care Unavailable Roscoe Stout Primary Care Unavailable Roscoe Stout Attending Unavailable Roscoe Stout Primary Care Unavailable Roscoe tSout Primary Care Unavailable Dolce, Epi R Admitting Unavailable GirishRoscoe emery Primary Care Unavailable Dolce, Epi R Attending Unavailable Dolce, Epi R Admitting Unavailable Dolce, Epi R Attending Unavailable Roscoe Stout Primary Care Unavailable Roscoe Stout Primary Care Unavailable SOFI Ernandez Admitting Unavailable SOFI Ernandez Attending Unavailable Roscoe Stout Primary Care Unavailable Roscoe Stout Attending Unavailable Roscoe Stout Admitting Unavailable SOFI Ernandez Attending Unavailable Roscoe Stout Primary Care Unavailable SOFI Ernandez Admitting Unavailable ErnandezSOFI Attending Unavailable SOFI Ernandez Admitting Unavailable Roscoe Stout Primary Care Unavailable SOFI Ernandez Attending Unavailable SOFI Ernandez Admitting Unavailable Roscoe Stout Primary Care Unavailable ErnandezSOFI Attending Unavailable SOFI Ernandez Admitting Unavailable Roscoe Stout Primary Care Unavailable SOFI Ernandez Attending Unavailable Roscoe Stout Primary Care Unavailable SOFI Ernandez Admitting Unavailable Moreno Pappas Attending Unavailab le Roscoe Stout Primary Care Unavailable Moreno Pappas Admitting Unavailab le Roscoe Stout Primary Care Unavailable Roscoe Stout Attending Unavailable Roscoe Stout Admitting Unavailable Roscoe Stout Primary Care Unavailable Roscoe Stout Attending Unavailable Roscoe Stout Admitting Unavailable Dolce, Epi R Attending Unavailable Dolce, Epi R Admitting Unavailable Girish, Armando Primary Care Unavailable Girish, Armando Attending Unavailable Girish, Armando Primary Care Unavailable Girish, Armando Primary Care Unavailable Girish, Armando Attending Unavailable Girish, Armando Attending Unavailable Girish, Armando Primary Care Unavailable Awais, SOFI Tong Attending Unavailable Awais, SOFI Tong Admitting Unavailable Girish, Roscoe Yanez Primary Care Unavailable Awais, SOFI Tong Attending Unavailable Girish, Roscoe Yanez Primary Care Unavailable SOFI Ernandez Admitting Unavailable Dolce, Epi R Admitting Unavailable Dolce, Epi R Attending Unavailable Girish, Armando Primary Care Unavailable Girish, Armando Primary Care Unavailable Girish, Armando Attending Unavailable Girish, Armando Primary Care Unavailable Girish, Armando Attending Unavailable Girish, Armando Primary Care Unavailable Girish, Armando Attending Unavailable Girish, Armando Primary Care Unavailable Girish, Armando Attending Unavailable Girish, Armando Primary Care Unavailable Girish, Armando Attending Unavailable Girish, Armando Primary Care Unavailable Girish, Armando Attending Unavailable Girish, Armando Primary Care Unavailable Girish, Armando Attending Unavailable Girish, Armando Primary Care Unavailable Girish, Armando Attending Unavailable Dolce, Epi R Admitting Unavailable Dolce, Epi R Attending Unavailable Girish, Armando Primary Care Unavailable Allergies Allergy Classification Reported Allergen(s) Allergy Type Date of Onset Reaction(s) Facility (4 sources) Acetaminophen; Translations: [ACETAMINOPHEN] Drug Allergy 12-10-19 [facility] (4 sources) Acetaminophen / oxyCODONE; Translations: [OXYCODONE-ACETAMINO PHEN] Drug Allergy 03-15-20 [facility] (5 sources) Cefaclor; Translations: [CEFACLOR] Drug Allergy 03-15-20 [facility] (4 sources) oxyCODONE; Translations: [OXYCODONE HCL] Drug Allergy 12-10-19 [facility] (4 sources) Simvastatin; Translations: [SIMVASTATIN] Drug Allergy 01-08-20 [facility] (4 sources) Sulfamethoxazole / Trimethoprim; Translations: [SULFAMETHOXAZOLE-TR IMETHOPRIM] Drug Allergy 03-15-20 [facility] (4 sources) Sulfonamides (Antibiotic); Translations: [SULFA (SULFONAMIDE ANTIBIOTICS)] Propensity to adverse reactions to drug 03-15-20 [facility] (4 sources) Trimethoprim; Translations: [TRIMETHOPRIM] Drug Allergy 12-10-19 [facility] (1 source) Acetaminophen / oxyCODONE; Translations: [acetaminophen-oxyCO DONE] Drug Allergy [facility] (1 source) Sulfamethoxazole / Trimethoprim; Translations: [Septra] Drug Allergy [facility] (1 source) Sulfamethoxazole / Trimethoprim; Translations: [Bactrim] Drug Allergy [facility] (1 source) sulfa drug; Translations: [sulfa drug] Propensity to adverse reactions to drug (disorder) [facility] Medications Current Medications Medication Drug Class(es) Dates Sig (Normalized) Sig (Original) [id number] 200 actuat albuterol 0.09 mg/actuat metered dose inhaler (3 sources) beta2-Adrenergic Agonist take 2 puff(s) by inhalation every six hours as needed for wheezing albuterol (PROVENTIL HFA;VENTOLIN HFA) 90 mcg/actuation inhaler Inhale 2 puffs every 6 (six) hours as needed for wheezing. 0 Active ALPRAZolam 0.5 mg oral tablet (3 sources) Benzodiazepine Start: 12-04-2021 take 1 tablet by mouth twice daily as needed ALPRAZolam (XANAX) 0.5 mg tablet Take 0.5 mg by mouth 2 (two) times a day as needed. 0 12/04/2021 Active apixaban 5 mg oral tablet (3 sources) Factor Xa Inhibitor Start: 11-02-2021 take 1 tablet by mouth twice daily apixaban (ELIQUIS) 5 mg tablet Take 5 mg by mouth 2 (two) times a day. 0 11/02/2021 Active cetirizine hydrochloride 10 mg oral tablet (3 sources) Histamine-1 Receptor Antagonist Start: 03-05-2022 cetirizine (ZyrTEC) 10 mg tablet 24 hr dilTIAZem hydrochloride 360 mg extended release oral capsule (3 sources) Calcium Channel Ken Start: 12-20-2023 take 1 capsule by mouth once daily dilTIAZem CD (CARDIZEM CD) 360 MG 24 hr capsule TAKE ONE CAPSULE BY MOUTH DAILY 30 capsule 0 12/20/2023 Active doxycycline hyclate 100 mg oral capsule (3 sources) Tetracycline-class Drug Start: 02-10-2022 doxycycline (VIBRAMYCIN) 100 mg capsule ferrous sulfate 325 mg oral tablet (3 sources) take 1 tablet by mouth once daily at breakfast ferrous sulfate 325 (65 FE) mg tablet Take 325 mg by mouth daily with breakfast. 0 Active furosemide 40 mg oral tablet (3 sources) Loop Diuretic take 1 tablet by mouth twice daily furosemide (LASIX) 40 mg tablet Take 40 mg by mouth 2 (two) times a day. 0 Active ibuprofen 200 mg oral tablet (3 sources) Nonsteroidal Anti-inflammatory Drug take 1 tablet by mouth every six hours as needed for pain ibuprofen (ADVIL,MOTRIN) 200 mg tablet Take 200 mg by mouth every 6 (six) hours as needed for pain. 0 Active lisinopril 40 mg oral tablet (3 sources) Angiotensin Converting Enzyme Inhibitor take 1 tablet by mouth once daily lisinopriL (PRINIVIL,ZESTRI L) 40 mg tablet Take 40 mg by mouth daily. 0 Active microencapsulated potassium chloride 20 meq extended release oral tablet (3 sources) potassium chloride (KLOR-CON M) 20 MEQ CR tablet Take 20 mEq by mouth 2 (two) times a day. 0 Active tiZANidine 4 mg oral tablet (3 sources) Central alpha-2 Adrenergic Agonist take 1 tablet by mouth in the morning tiZANidine (ZANAFLEX) 4 mg tablet Take 4 mg by mouth in the morning. 0 Active Problems Active Problems Problem Classification Problem Date Documented Da te Episodic/Chronic Asthma (3 sources) Asthma; Translations: [Unspecified asthma, uncomplicated] 12-11-2021 Chronic Cardiac dysrhythmias (8 sources) Paroxysmal atrial fibrillation; Translations: [Paroxysmal atrial fibrillation] Onset: 03-15-2020 03-15-2020 Chronic Disorders of lipid metabolism (3 sources) Mixed hyperlipidemia; Translations: [Mixed hyperlipidemia] Onset: 03-15-2020 03-15-2020 Chronic Essential hypertension (6 sources) Essential hypertension; Translations: [Essential (primary) hypertension] Onset: 10-24-2020 10-24-2020 Chronic Other nutritional; endocrine; and metabolic disorders (3 sources) Body mass index 30+ - obesity; Translations: [Obesity, unspecified] Onset: 03-15-2020 03-15-2020 Chronic Past or Other Problems Problem Classification Problem Date Documented Da te Episodic/Chronic Complications of surgical procedures or medical care (3 sources) Hematoma of skin; Translations: [Postprocedural hematoma of skin and subcutaneous tissue following other procedure] Onset: 01-28-2022 01-28-2022 Episodic Nonspecific chest pain (3 sources) Chest pain; Translations: [Chest pain, unspecified] Onset: 03-15-2020 03-15-2020 Episodic Results Test Name Value Interpretation Reference Range Facility Office/Clinic Noteon 024 Office/Clinic Note Patient: SOFIA MIGUEL Age: 48 years Sex: FEMALE : 1975 Associated Diagnoses: Obesity; Chronic diarrhea Author: Roscoe Stout MD A History of Present Illness 48-year-old female presents today 1 month follow-up of being on Adipex for obesity. She has not lost any weight while on the medication for the last 2 months. She is down from when she initially started the medication. She does continue to have chronic diarrhea. She is status postcholecystectomy and appendectomy. She has not had a colonoscopy. Has not seen gastro. We did try Colesytramine for her diarrhea but with no improvement. Review of Systems Constitutional: Negative. Ear/Nose/Mouth/Throat: Negative. Respiratory: Negative. Cardiovascular: Negative. Gastrointestinal: Diarrhea. Health Status Allergies: Allergic Reactions (Selected) Severity Not Documented Acetaminophen-oxyCODONE- No reactions were documented. Bactrim- Rash. Cefaclor- No reactions were documented. Septra- No reactions were documented. Sulfa drug- No reactions were documented., Allergies (5) Active Severity Reaction acetaminophen-oxyCODONE None Documented cefaclor None Documented Septra None Documented sulfa drug None Documented Bactrim Rash Current medications: (Selected) Prescriptions Prescribed ALPRAZolam 0.5 mg oral tablet: 0.5 mg = 1 tab(s), PO, BID, PRN: as needed for anxiety, 60 tab(s), 2 Refill(s) Adipex-P 37.5 mg oral tablet: 37.5 mg = 1 tab(s), Oral, Daily, 30 tab(s), 0 Refill(s) Eliquis 5 mg oral tablet: 1 tab(s), Oral, BID, 60 tab(s), 5 Refill(s) Potassium Chloride (Eqv-K-Tab) 20 mEq oral tablet, extended release: 1 tab(s), Oral, BID, 60 tab(s), 5 Refill(s) amLODIPine 10 mg oral tablet: See Instructions, TAKE ONE TABLET BY MOUTH DAILY, 30 tab(s), 9 Refill(s) cetirizine 10 mg oral tablet: See Instructions, TAKE ONE TABLET BY MOUTH DAILY, 90 tab(s), 2 Refill(s) cholestyramine 4 g/8.3 g oral powder for reconstitution: 1 packet(s), Oral, BID, dissolve in water or juice, 60 packet(s), 6 Refill(s) hydrOXYzine hydrochloride 25 mg oral tablet: 25 mg = 1 tab(s), Oral, q6hr (int), for 30 day(s), PRN: for itching, 120 tab(s), 0 Refill(s) hydrochlorothiazide-losa rtan 25 mg-100 mg oral tablet: 1 tab(s), Oral, Daily, 90 tab(s), 3 Refill(s) tiZANidine 4 mg oral tablet: 1 tab(s), PO, Once a day (at bedtime), 30 tab(s), 3 Refill(s), Home Medications (10) Active Adipex-P 37.5 mg oral tablet 37.5 mg = 1 tab(s), Oral, Daily ALPRAZolam 0.5 mg oral tablet 0.5 mg = 1 tab(s), PRN, PO, BID amLODIPine 10 mg oral tablet See Instructions cetirizine 10 mg oral tablet See Instructions cholestyramine 4 g/8.3 g oral powder for reconstitution 1 packet(s), Oral, BID Eliquis 5 mg oral tablet 1 tab(s), Oral, BID hydrochlorothiazide-losa rtan 25 mg-100 mg oral tablet 1 tab(s), Oral, Daily hydrOXYzine hydrochloride 25 mg oral tablet 25 mg = 1 tab(s), PRN, Oral, q6hr (int) Potassium Chloride (Eqv-K-Tab) 20 mEq oral tablet, extended release 1 tab(s), Oral, BID tiZANidine 4 mg oral tablet 1 tab(s), PO, Once a day (at bedtime) Problem list: Active Problems (8) Anxiety asthma HTN (hypertension) Hyperlipidemia ALVINO on CPAP Psoriasis Tobacco use Venous insufficiency (chronic) (peripheral) Physical Examination Vital Signs 05/22/2024 9:22 EDT Peripheral Pulse Rate 71 bpm Systolic Blood Pressure 100 mmHg Diastolic Blood Pressure 70 mmHg BP Site Left arm SpO2 100 % Measurements from flowsheet : Measurements 05/22/2024 9:22 EDT Height 162.0 cm Height/Length Measured (inches) 63.78 in Weight 100.43 kg Weight Measured (lbs) 221.41 lb Weight Dosing 100.430 kg Body Mass Index 38.27 kg/m2 Erin Body Weight Calculated 54.193 kg BSA Measured 2.13 m2 General: Alert and oriented, No acute distress. Neck: No carotid bruit, No jugular venous distention, No lymphadenopathy, No thyromegaly. Respiratory: Lungs are clear to auscultation, Respirations are non-labored, Breath sounds are equal. Cardiovascular: Normal rate, Regular rhythm, No murmur, Good pulses equal in all extremities. Gastrointestinal: Soft, Non-tender, Non-distended, Normal bowel sounds, No organomegaly. Impression and Plan Diagnosis Obesity (CTG17-LL E66.9). Plan: Discussed with patient will stop Adipex since it does not seem to be working. May come back to using it again at a later date but for right now with her other health issues can hold off.. Orders Orders Evaluation and Management: 29337 Office visit - established pt, Level 3 (Order): 05/22/2024 9:19 EDT, Qty: 1, Obesity - Chronic diarrhea. Diagnosis Chronic diarrhea (JJI21-RA K52.9). Course: Will refer to , reference services head for evaluation of chronic diarrhea. Most likely will need a colonoscopy.. Orders Orders Referral: Referral Ambulatory MAGR (Order): Gastroenterology, chronic diarrhea, Susan Mi DO, External Referral, 05/22/2024 9:41 EDT, Chronic diarrhea. [Electronica (more content not included)... [facility] Coding Summaryon 05-15-2024 Coding Summary HTMLBase 64 XaqktjtiMEi2hLz+PGhlYWQ+ QZ6IHMLmC60zxZZyaK1mU0RJ TElOSywgQVBQTElOSyIgbmFt KA7kbTJgSLQc IC8+HU4iYJYxNqhvdDEll8Y3 eKS9L30yor1vTKyvaTD1MCFw MwMbvmtad2poeFz2REwbJurd OyBt CQJwzI13FIY8qF00Vj02rSLn dJPap2iksMw3HmFpGURqRWB3 iJxrXAwzu0YhKGDhY95ndWKj c2U6 XXOvjPacuNZdGcLrhJD2gN5t SGimwfach9hwbxzoAcu0qi37 mEOhw4A6qMS8Y1SstsO9RXRp bGQg HjuyiAZGkF7lcxjgd4bbjcmy QwBhDUGhYJs1RAa1OSAlbJyy SsWnHW08UOE4COOddhLuS7Rj LWFs gSgbHyO0r7H0Vj4PG6DRNvxk A8MPFCFMRZizrGS+MQ23dh06 M1JfNnahBsz7XPVmXRS4hWE9 aD0n WMVfLCfpz2Y9nLQ6Z3MvchGo ly7xi5xmGBSnJLowM14jmEMn i0E4FCEbwKG8UWJxfGavNiHx aG93 Oyc+DYHhhLsug7WeKnbnj4jn f1qrjLi9KdtpBNJjceTowFsp SOK5l7ByFb7zTOMlyWW3yGO9 aD0i AwIwUhG2POdqF830TvLjvMQw LspxG88uO9RuzNH+PHRyPjx0 WMMwqKegPA4kY9ZgIUQoudwl bGVm hDihCS6kLQIubvbrIFDrvQ0n PVAdC6r8AkPsDwG2NHqxO4Fo NPFduxzyQk99lH5xVnKiIkX5 MGlu B1PefcN1PADolRFqSJhxSCI8 L21ou2M6RKDpGTBnZLW8bYJ9 mH2bjTjfzdxfgVMmmRpwepBj dGlj ECtgTFkrK898RZOpwNdcOlMl ZGluZyBEYXRlOiAgMDcvMjIv MjAyNDwvdGQ+RMUpGMO8lLqa PSAn aWKxIEjnCr9uhPiosSjaXF2h INJkxiwsQAJxnN8eLMJbzLNp wEmzNI4oGTUtcfarj434FmXt MHB0 YPLzfHOkB4NluN7rQyCgVYVh NACaN4IqrPUoBJgaV301BOdw KsA1QQJrnlJzV4WlQPYqxZaj OiB0 x0O0Yb8No2IxbvwqA4YqjFXs AyEyRkglCYc3W7DqCfxkaRW+ NT94XENmTP48WYo1KQY4uTaa PSdi QQVwR3SxrG8fVwUtWXBsCGJd Oyc+PHRhYmxlIHdpZHRoPScx NSOjJlNotTbvSO4oMy6xRIYl LWNv kPiimSYyTbDro4qrPHUvMBoj IC4crTciQ0BfoDM3UGIii5f4 Ux08Y96uF4GpnEC+PGNvbCB3 aWR0 qS7hArLtBsV1WFvmN114QwCp qFSlCktox6dgo3vwgYy7UdD4 IEDyiuUjoFqrMMW6h8WjOc14 Y29s IHdpZHRoPSIxNSUiIHZhbGln gw1yuK1wSo3+CBJpfQB6rOY0 zR7tNoHtByB2MZboI404HxVf cCIv Siusr9hmj0xifQp3JhPePKDk msYxpAtoGKC2y2YlZx21N0Po wPvgm1EeFrt5ne55tOEow8J9 bGU9 A3YtHHBkvtvvlNLwcKvmOQ5l HCYxiatmKLPhwI7xLMOqM8y9 XmPbIyK2RDqsA9MotjO9HLXz bGQg YHQuvAFLoK8dbjsbo7ludgps EnStUQTuMPd8ZDr2PFAteAvj KoTrCVS3CmK7FRF3dNWvnK6g bGln unlxdT1qQtv+OHP6pGEglLXG FD4mKxrjbXG+TLErECS1mNyz GXtjMONttT5tNITzU8f2CfPe LjA1 CWozL7NgmaB9PZJsnWBgDYNf zXDLgB1mvzlyw7exveuuUjJk ANJzBMo3KKi7CAFadVomQoWc ZWZ0 ZqF9WGF5fCWroE4ptLiotgoa bT2wHtc+DeoxlAihQKS9WFb9 J3BdYrk1FTGwnWxmGX7cuDBn ZGlu Is5srXlhrScmEK6nZUZilpho t684HhGva7dnDYHdkKPpVMgn VKQ1K63xo7A7RYInWAOtHYE2 dGV4 mY5oyXrkgirfnNWbsOwczhVe nMwrLZezTNspO220TGAmxWvr BpRgVJr9L3GrDxj4AIGggCns ZT0n oJSnAFetLw6ldAlqyHwuOP3p EUBaxoijb960ZkFhw6wrNBTd cJEkCZixVYN0N09hh5T0AZOo MDAw ASV9yUY1zL4crVyuaocphPVr oVvrzgRsxBmnZFpuBTkoY630 EAKgtCpxNtQqdWt4B7UnLbe4 ZCBz cStfOS6ocDCcLXofQt8fiNjj cOjoJU3mJQQgfjfer515RlNs r6brJGGlmTSvYDscYCE1Y00u b3I6 IWDgTBQvVDJ8hQW1qJ4raWzq bjogbGVmdDsgdmVydGljYWwt BJnxP654HWLpvOitQhBxbXqg bnQg TRutNBt8C5GgHqtzbAW+PC90 OOQjCW02fRFlzSLkt3vsjHn4 LvHzGTDaZSG9aNbtAQtzc7Jg ZXIt C82pmEVmn9E9LVGupZceqARd PqBgmYQ0cU1dNLxafizho1zi thbpEkyhr0bzre61dU29Q27o IHdp VMQtTKSqMBQiASFhyRkgyt4l zF9sPc5+ADJmhSR5wZL8gG5o XDKuByA3GSjjK840EnUvmKUb Pjxj f5mae1aqmHh4IwA5PVXqfmPl zWjqZOH9u7BfXt49K40xEEsk CRRzAROqJZRtIBUdmWqtnw8b dG9w Ii8+MBMgkNU6vAK4cA5mMeUl TiN8QMsbO493QkHybSCsMlqi J58nN8PgkVY+FMMjQqn4CPNy dHls LI7neTZzATibYg3eWOB3ChHg TnEsHTqaQ9FgKYCuykyxgjak yWR9VKEyQQVaaG91So2jeWge MTBw gMGHlA1exojgm3ihqsppEkEf AQEaJJz9OEs8RVCkfFrnNvTt JCH6PeI3HPB3cTHpeX2daEvf bjog tM2xD2NgPSXoirkdIx85oU4v EhRrJeN8XWoxHuv+H9JGXqwp K67CTlcTLUVAYXusqCO+PHRk IHN0 tVarDWxkFNFcaA0zWGQsD8w7 FoJkClW9FVkeR9CoWXOoaats Ym27cK8rEyWxOnV4QIosZ2Yh bnQ6 MCIjdSXrXAvoOEA4U10xm5Q5 CPVmJNEdHCR7fHT4jC2oiHjp bjogbGVmdDsgdmVydGljYWwt YWxp W906YOBcuAeiMeM9UlO9UoN1 IyG5W6YfUnn6QNJrsRrsTE6p kMAsZLmkTf8ebMlyoXqnCD9x NTBp vcvyQGDdoO4oTDBgqZPpxLra NW3zESPffptqe044HyYzJRM9 RSMypCFrI6MzmS0hNvZqVHRy MDAw F6EijXRmXVczR676BAtwAaF2 TACnlbRrE0GyMFKubLtpDjB9 k3Q6Wc78ZDFHXPAekouoaCC+ PHRk YZV8fQksYIbhPXDbsF7iGXHd X4c0ObYcGbC6JSgqZ9TwFIQw uxagOg62pS3uKkYhSgK3UMcr O2Zv krH6TGWvaKOrCUxcZTZ5M76h j4P7SMIgRZZvTIO2iSE4sN1y bGlnbjogbGVmdDsgdmVydGlj YWwt ZNcbB439SZQxjCwxVqXRGVFG RTwvdGQ+DPPdIUV0fTdlOKse TFMiuH6uLYRfI9z4HxBeCiO1 MGlu B8UlKXCofvtdJw17iZ5vPnCs KaD2DRpgI7UsoyI1AZDpnBFi EAybMVO7R38wp9M0GSIlOXZg MDA7 eLY3mX5lwCxerjttrOJnlIpb dnQghMygPNnfYTvsS321UEUi hEjzKsKeBKHnXW3csNfbvXS+ PC90 ou32Y9SsQozeWqb0RNGcSCT5 tQL1jM4nPUHdZHdal0F1cHA3 Z8SgunFzos5se5hfYEAmRUxf Y29s zTFoe8L1FPYasWX7QMKhdIsr DmXffB01Hvg+NIPyeWfru0Qe Wblca9koe2xxdOy7NnDbXNIk dmFs rJgoDHL5m2RvCf56N48mPMxc FZWyZCBhYYLoOJQvwPnflv5q lQ4iIe0+CNWzaSR3tXA3aV9t MjAl NdL4BZrdB084PnKsrAVjPmws x4mcv1lhfSi0YgJvELIazkEf fJbwIEG4y8RbRe16H3IbtNzo b3Vw Ydm6ot28xZUfi6J7pVR9E6Xm GOTliqefdERnzOyfMG0vNYCz wntjDXItfS4wEMQtO0e1ZtNx LjA1 CXsnU4VpeqU4WMVlkEHqWIBm tWLUnS9pcheuj4ernzibElSb RFWcQLh9DMq7ZYNxnDjgHpRh ZWZ0 NlP3NFB7tTAghQ0tiDukkxun vT2tJlt+AYc7y9rlrRUsZX4o sTW9IV25GT43zEGbk7W7hLO1 J3Bh HYLujyutushsuKZ9RLIxYQNj tD97Wx2vcSpcXr5nKEMlJII7 GRPsiQZbF1HadW8oWdFoJRAe MDAw B5UecTSpLBulQ359BWslZxV5 MYFqpiKzM6RtLHDgsVvfFsT1 h1J9Tq0DXU34GA33BR16iHIj c3R5 sWI1E9HtUORwlrpgpzcrxPU2 WSHyLKGmrT18Tr0gsCqwLo5z BYPhZDC5FFBblEUgE4UrxQ2s OiAj NOHnAHTnU5NkbTLpBQjsB005 QLjlTpD2UQYayvWuF9BwBRHo oNkmDdW8d3M0Oe7FLb16TE27 ZD48 yRGuy7Q9oYW9I8YyYZPgfqir vnxjgCT1JGRrEQVthS29Wa0b zXccDl9hSQFcJYK9LWQgzVNz O2Nv gP5gJuSsTHZwHKYiO4WrcVIv CIaoM957LOevCiQ1AZDjeoLz E2TtYZZzaGynZqW5m8C3Hy8S YXll ulg0R6XhCpbolHU+AX29UXDm UO74bMLcbPApg5yasWk4FpTe XUQmLHR9cSlrIXfck8VbKPDr Y29s bGF (more content not included)... [facility] Outside Recordson 05-09-2024 Outside Records [id number] GTIFF [facility] ED Clinical Summaryon 2023 ED Clinical Summary [facility] - Emergency Department [address] [place] [address] ED Clinical Summary PERSON INFORMATION Name: SOFIA MIGUEL Age: 48 Years Sex: FEMALE : 1975 MRN: Acct#: Visit Reason: Leg pain-swelling; RT LEG PAIN AFTER ABLATION Arrival: 05/03/2024 16:56:01 Discharge: 05/03/2024 18:10:00 LOS: 000 01:14 Check In: 05/03/2024 16:56:01 Checkout:05/03/2024 18:10:00 Address: [address] [place] [address] PCP: Roscoe Stout MD PROVIDER INFORMATION Provider Role Assigned Unassigned Prem Garcia MD ED Provider 05/03/2024 16:58:40 VITALS INFORMATION Vital Sign Triage Latest Temperature Tympanic Temperature Temporal Artery Pulse Rate O2 Sat 97 % 97 % Respiratory Rate 16 br/min 16 br/min Blood Pressure /109 mmHg /109 mmHg MEDICAL INFORMATION Medications Given: Allergy Information: acetaminophen-oxyCODONE; Bactrim; Septra; sulfa drug; cefaclor PHYSICIAN DOCUMENTATION DISCHARGE INFORMATION: Discharge Disposition: Home Discharge Location: Home PATIENT EDUCATION INFORMATION Instructions: Hypertension, Adult, Utlj-[id number]; Musculoskeletal Pain Follow-Up: With: Address: When: Roscoe Stout MD [address] [place] [id number] Within 3 to 5 days DIAGNOSIS: 1:Pain of right lower extremity; 2:Elevated blood pressure reading Patient Understands: Yes - Patient/family/caregiver verbalizes understanding of instructions given Comment: [facility] ED Note-Nursingon 05-03-2024 ED Note-Nursing Patient arrives with c/o right leg pain after ablation yesterday. Patient states her legs would swell and cut off circulation so patient had ablation done and is experiencing post op pain. Patient rated pain 9/10 and is tearful. Patient read discharge paperwork from her operation and said she could take Tylenol, and tried to call office but they were closed, so decided to come here. Patient is A+Ox4. Normal [facility] ED Patient Summaryon 024 ED Patient Summary [facility] - Emergency Department [address] [place] [address] PATIENT DISCHARGE INSTRUCTIONS Patient Information Name: SOFIA MIGUEL Age: 48 Years Date of : 1975 Reason For Visit: Leg pain-swelling; RT LEG PAIN AFTER ABLATION Arrival Time: 05/03/2024 16:56:01 Primary Care Physician: Roscoe Stout MD Attending Physician: Moreno Pappas DO Comment: Visit Diagnosis: Diagnoses This Visit Elevated blood pressure reading (R03.0) Leg pain-swelling ([id number]) Pain of right lower extremity (M79.604) The Pharmacy at [facility] is open Wednesday through Wednesday from 9A to 6P and Wednesday and Wednesday from 9A to 5P Prescription Information: If you have been given a prescription for narcotics, seek immediate medical attention if you have any difficulty breathing or any sudden status changes such as confusion and sleepiness. If you or anyone you know is experiencing suicidal thoughts, mental health, alcohol and/or drug addiction problems; contact the [facility] 17/05 Crisis Hotline -Text 9VMYI ix 231047. If you received any narcotics, sedation, or any other medication that causes drowsiness for the next 24 hours, unless otherwise directed: ? Do not drive a car. ? Do not operate machinery such as power tools, lawn mowers, drills, sewing machines, or stoves ? Avoid alcoholic beverages and drugs for allergies, nerves, or sleep ? Do not make important personal or business decisions or sign any legal documents With: Address: When: Roscoe Stout MD [address] [place] [id number] Within 3 to 5 days Medication Information: The exam and treatment you received today in the [facility] Emergency Department were for an urgent problem and are not intended as complete care. It is important for you to follow up with a doctor, nurse practitioner, or physician?s assistant store manager operations for ongoing care. If your symptoms become worse or you do not improve as expected and you are unable to reach your usual health care provider, you should return to the Emergency Department, we are available 24 hours a day. For those patients who have received Radiology results, the interpretation of your X-ray as given to you by our Emergency Department physician is only a preliminary report. The Radiologist will review your films and if there is a change in the diagnosis you will be notified by phone. Please make sure you have provided a working phone number so we can reach you if necessary. In the event that you had a lab culture while you were a patient in the Emergency Department, you will be notified by phone if there is a need to change your antibiotic. Please make sure you have provided a working phone number so we can reach you if necessary. [facility] Emergency Department has provided you with a complete list of medications post discharge. Please inform your cost recorder/provider of your visit and for further instruction on these medications. Any specific questions regarding your chronic medications and dosages should be discussed with your primary care physician(s) and/or pharmacist. New Medications [facility] [id number], [address], [place] [id number], [phone] traMADol (traMADol 50 mg oral tablet) 1 tab(s) Oral (given by mouth) every 6 hours as needed as needed for pain for 3 Days. Refills: 0. Additional medications on your home medication list not specifically addressed. Please contact the ordering physician if you have questions about these medications. ALPRAZolam (ALPRAZolam 0.5 mg oral tablet) 1 tab(s) Oral (given by mouth) 2 times per day as needed as needed for anxiety. Refills: 2. amLODIPine (amLODIPine 10 mg oral tablet) TAKE ONE TABLET BY MOUTH DAILY. Refills: 9. apixaban (Eliquis 5 mg oral tablet) 1 tab(s) Oral (given by mouth) 2 times per day. Refills: 5. cetirizine (cetirizine 10 mg oral tablet) TAKE ONE TABLET BY MOUTH DAILY. Refills: 2. cholestyramine (cholestyramine 4 g/8.3 g oral powder for reconstitution) 1 packet(s) Oral (given by mouth) 2 times per day. dissolve in water or juice. Refills: 6. hydrochlorothiazide-losa rtan (hydrochlorothiazide-los aryan 25 mg-100 mg oral tablet) 1 tab(s) Oral (given by mouth) every day. Refills: 3. hydrOXYzine (hydrOXYzine hydrochloride 25 mg oral tablet) 1 tab(s) Oral (given by mouth) every 6 hours as needed for itching for 30 Days. Refills: 0. phentermine (Adipex-P 37.5 mg oral tablet) 1 tab(s) Oral (given by mouth) every day. Refills: 0. potassium chloride (Potassium Chloride (Eqv-K-Tab) 20 mEq oral tablet, extended release) 1 tab(s) Oral (given by mouth) 2 times per day. Refills: 5. tiZANidine (tiZANidine 4 mg oral tablet) 1 tab(s) Oral (given by mouth) once a day (at bedtime). Refills: 3. Visit Information Allergies: Substance Reaction Symptoms Type Comments acetamino (more content not included)... [facility] Coding Summaryon 04-19-2024 Coding Summary HTMLBase 64 CidsvuglNXq0rPh+PGhlYWQ+ UX9QPKVtI91bbZEecV5xI7XH TElOSywgQVBQTElOSyIgbmFt TM8hwNYdTAPh IC8+JD8rEMVaHexbkVXfd1H0 aON1Z30lrw2lNZhluCD9HJLz ZcJkzizzh8ghlCx0FTbrQxzh OyBt BNDelZ77NJG8eE02Ni28nETn tQOip6ayyYy1YoJnIENaUYH4 hNziMVrli1IsPAEyD14wbXWx c2U6 PTNsdNgbmIMjPuWhlXN7nN6d PDavewron3rfywelPfk7if25 iSIex8S1gAM3V5SjvuT8AOEy bGQg LbebaLYUcD0xwzbla9qkshty TnPvGBEdCGl3ENw0DUQnxLhv FvUrXI07FVG9LWVabxWjJ7Yv LWFs jAneDiP7y6T4Nr2TE8SMUxag T4ZITBLHYIyvoPP+ET82zf96 T6SfCldpZkg0QAJlISL4eLY3 aD0n GLCcLCxuy8O9dNE6M9TvnyQw ub8pp5kpEBYeXXdbC12slBMv z4I3EENgcET6NAGurMytLgZj aG93 Oyc+NGRuuXzsk5BdSpsrg4aq m7rrwXe2VpwsDUAfwpRxgDia HDS3q1ErWo1rSDZxfCB4vZN0 aD0i FfSdByF8HGqpD211DsXyqZDg FvqqV60rG0VflSP+PHRyPjx0 SLMwaGaaWF0vS0VxCBBupqzr bGVm cQqxLR7oYOEzcakrURTxbH4l NRVmP1h4RgTzPrD2CKgiZ8Rx JMQidxqyYl29aI1gMrHeEvX2 MGlu U3CvbaQ8IQUbsMUiJPtyVXU3 P91sb5Z2WXWhBEUoUJS1aTT7 uK3uoGjziwylwUDgySrmnqSw dGlj WCizYDmyU214GJNxwBucMpIe ZGluZyBEYXRlOiAgMDYvMjYv MjAyNDwvdGQ+KHPxSKI9uPbh PSAn pIPcZUxnYq4jkXmpnMegTQ8n KWXvfobxRJZjmL1vVTUfmEQi qPwcEK7pDCIegxdom675HjFl MHB0 KRDcxVFxS6JbaO0fCqPcDGIb GGAmC3DoaKGgDUylG043ALym PcC8YKOllpTiU9NzAUMefPvt OiB0 b7A2Aq4Wu3KviodgU4AvmVQk IxToMppiBJj1W1MvWxlnuQU+ GC06GAUsRV77TUj8XLF1mRfe PSdi OECaM5OmdC8jNvRwINSkKODs Oyc+PHRhYmxlIHdpZHRoPScx BGPqRbGyeEnvVZ1aYj4kPXHn LWNv zTqntYHvVfKnk3tjYBVeFEnc TH0wpZqmQ9MmfWH5OGNup3a9 Py37J39oA7KqjSV+PGNvbCB3 aWR0 oC6fYhMbXfL2VOkjE460PbYq rQXxFojfv8wmw5iolHd0JbI7 JBKudoZijTliLJN7m5MvVy96 Y29s IHdpZHRoPSIxNSUiIHZhbGln da1gxE5sVl8+DVZaqMN2pNI1 cL1aDjKkAxA4LRhyK296FsRq cCIv Gkoca3cbx2rnnNm1RlKjCDUn fuTwbUqdKNF2n5CmAd26N3Oo sXueb0VkLtn5xy51hNUdr9A3 bGU9 W1AdQZLagskuzRXjcJrcSM0m CYLtqauyGAOktK7aWWYeW5i6 KmUaDaC7DKtoJ0JkbcX3TAKj bGQg KDImjUCAaB7qojaya2tgguot MkBvOSQxYJx9EDo5EKQohBvh JyPqBKD1TbS4BBL9rQNohU0v bGln cayvjE1kIgb+PDT0hEKvoAES ES8aGqbtuKG+TTGpIUO9eQrh QExxXGYrnD6nMWAhJ8z1JeRj LjA1 PVddY6VbfsY6YUHveWLtIEKx wSHQgX3uiryvl8xnjkioJpJz NNVlYYx3PGn3EBDbdScfPxZj ZWZ0 NgF2QOD2tFGvkN9mwFedmeje lC4nKvw+KcfpsWcgSRW3ARb2 W9LlEom4DIMgzDetDF3zjTNg ZGlu Qt5sgTccoBdqGT9yBXRfoozt z965CmSgc3mmIREhxLNuPCqi RWX3I06yw1B1MXMjUQOaAIP3 dGV4 bT3ixXxzzisaoABafWneuqYn mLhqEAfpQWgkW778JDAfoUoi RjYqOBl9Z2CiBcd4FJZphBgp ZT0n fOEzVVsrPf1jgXsibXtlQK9o CANhfuuej116LyZdx4scVGTr rMSmJHzlGRN7J45wj9H4NIAj MDAw VVK8bSH1bC2aqCpraxwrpUOd fXsypcBclEohYVajPJteY361 GPLckSxdYcGkfPd2S3OoGnq2 ZCBz xXsjAK0opYCbBVfuJw4dvKvi bXraOF9pMFEvtcsjm740VyAt z1juRIQdaGGcFTbtYEK4G08w b3I6 BUYgZEVeQYB3jYE2eJ6xfNwg bjogbGVmdDsgdmVydGljYWwt YDgcR332AULmjItfKsLtcYqf bnQg OYgxSWv4W4QaBaxdgAL+PC90 JWMnSD13pYFoyISal7fwtYe7 KyFgZYZnYGR9uEfxWCosk7Nc ZXIt G12qpKMms5W9GIIwfNbifTAl AcTywLE0eU4uRLvshdewg1hi yjgqEoplg8jlrc78oL69B55n IHdp JZYfKHTbDCPrYWSouWmcqw6u nV1nJa6+CNZesHQ1pRP1zB6l JJWhWaE0CElyL703RaQhmLZg Pjxj l2bpe3tkaNu4AnJ2DHVvhqQz iEzaRPM0g8PbZu75C54sWRjj IOWiRQUqDBLdDXTgmFbsht5i dG9w Ii8+KZKvlMO0vIA2zP9uZhZt GiO1VPeyR173GcFrlNHqSlco Y51hF7XysDC+QAXkDrq3GCTl dHls AW2rzNGbOWlmEr4pVUH4MtDy TaPhSLxkE0IvMWQuszwcaley dHR0JRHgRAGyiF88Zw6tlXaf MTBw yYAWaY6mffueu7auqeweEgIx AGJjETs4JOj0SRKxgGkjYpVv ISD2LwG2DAM0hVKnvZ4ylBbw bjog yE7jL6NaFGXhimqvKw05yE6k EzOfEbC0SNsqQgx+C2XKPfym V09IZuqWNGHOGVrtnIX+PHRk IHN0 lGziYDopYWSsvU0hFCRrG3z6 NgTjBeJ1YIukV3KhRRGirjzg Nj29fZ0uGnLrHfC1PLvaF1Fi bnQ6 PFPiuWOiRQyaKKI5Z65zk3X5 TWFzMZOcJTG5sAV3lC1epOgl bjogbGVmdDsgdmVydGljYWwt YWxp Z305QPNjiUygYnP8LqG0MdN4 ZpG7R8IaLdn4MMOjhRriZZ4z dYDiMVwrUt4dcHjccShpXZ8n NTBp moxxUBJjtP9nEBFblLPfdZez BK6lBKErfgqxc706UxVkPYI5 EWXufYLoV6NkoP0rMdNcQMZw MDAw V5PqgSJdLPxxK458KJiiKcJ5 YCPjndMtW9AeXBAiiBcfJxK9 e9M8Nz21KLZTOZDxxzqmsZF+ PHRk ORH8fKmkLStdERSffZ3lGIMg F8c1DjYzAeL0NKhuM0MyPDYe acjmGe47eE4gUoKbTzT5USzt O2Zv ssK9VLEqyEFgTBejAEU7B58a l7A1IHWeBSUjHSA2wAR3xV7q bGlnbjogbGVmdDsgdmVydGlj YWwt FUjtZ189ZIAaeUylApFQWNEE RTwvdGQ+MSMbXDO4pCotTBfx NYQysM0kNGVsY0h8IqEdGgJ4 MGlu D1JkVYPzbgzsNy93dJ1mJtQo IiV8HPqkE0AirvI6YUSplCZp XDvgRPP0P81nf1M2QBQpKOQd MDA7 oLI0rR1xrEkktsiuoZBwbRct hhEiqLlfEMcbMWtdJ063GMXj pPhuQb8XUG29YG84O2QdUgne dGFi bGU+PHRhYmxlIHdpZHRoPScx LGRjPcAswXloQB8bOm0pBKEs JWRzzQqvlZGiGjVzh3jiSJYw ZTsg LG4foQbfN1FpvEZ6MBXri7o8 Df18I44oB0NjgWE+PGNvbCB3 vPH6cV2lSaQwIwT1ARscB144 InRv yPZdAweqo6mjd1fzcXx0AkZt ZWOwkgThnQzlKUM3i3IvJy58 J80cKNyhRHEpAFXpSHNlUAOt bGln zq0rzW3mHw8+AIGzdZH8dDN9 xL4rSkQpRrV2ELlrH356HmQg uXVuZcbqA73vB8JytBC+PHRy Pjx0 UJHliQytEY3buAWwGRnlIn6r KLD3AbBbKiVeIXnkU2TcGZAs uwvvhglugGX8NASaFOXplB41 Zm9u rLisJc8gYXCoULO4TVFivBEw J9KjsG8dCyJvMPWnHLWkS0Zx oQIgVCzwM082ECocElT4FOBi cnRp B4GmUPGhpRezXfS5u3F1Wm1P yBhgdGOzUC0uEoLlVUj5L6Hk Fae8NOQbfHtwWB4vxGZeDEjd Zy1y oChxaYwcCP7oIVUhwpozg310 BoKba7kyOFCrzMXtIUjfHQS9 M46gr4I3JYGdYAYdKXO3pXC5 dC1h bGlnbjogbGVmdDsgdmVydGlj ZTvaUOmuK721IOKcqJymRtVW Roe6T3HpOxh6CQPmkIbjMT2a cGFk IOstSg4qhAewlIedXM5jFKFe ddnob817ZpUwp2ieJUJsiIMg KBmnAYG9W60nj7H4BZCiDOYn MDA7 gTU8cI1tqArqabhivFOswZaj veAvnItvZGscNFzyT191VUYm dBubPt0HBxo8C5YfHrq1PSIk dHls IF9acBNiAUmeYn0cwUvtsQhm VH3uTOQsgtbyq256VeWhi6fu AMBrzTVfYQxvEFB4Y86bw2E3 ICMw AWXsNQK0bXJ3qO8ieDkrcsda bGVmdDsgdmVydGljYWwtYWxp R194HRPekXfqElEwyJTgYfkd dGQ+ VE97wq34T9BbGpqjCfg4JLLk NMI7iIL5iY5xDCSrVVfny3A5 lST9J9RopuFefl5ck8ijKXMy ZTog Y29 (more content not included)... [facility] Coding Summary HTMLBase 64 KugjkymxRKb2mTc+PGhlYWQ+ QS6FMUDzL52pvFXoyK0zN6MU TElOSywgQVBQTElOSyIgbmFt OC6jjBHsLPWy IC8+WZ1uQMOlCanhiXEew6W6 dDL9A53bpm5kANwjrTN2HLPu JlNflgvjk2wxxTu6IIaxOnyv OyBt XGQwnO31OAC8cB69Qr50sJQa lGCxe5ecvBd3VwUcSSHvGOS4 uXksAZlxb4OrZBUmA62dwRLs c2U6 ZTEuuFailGJeNoIzhNE2fX0v OYppooezk1axyphhNsa0ze85 iERkz2C6pDI7F5KzdtH6EOMx bGQg WnpjyOGQbQ7sjvchm2tpsffm MaCsWIOeBIa5XGl7ATUaxMat RvOiQF39XBG0TUHstzDlX8Te LWFs vWpuIgO4d7I2Ob0JA1LDBlfv T5NMXSTIDUsczWO+UU53yy86 Z0WfUpdbKwp3XTNpPPJ0yVM3 aD0n DRFfSEont9O4oMJ6E9AfkvJn od1qz4dqMPEaUAxgF54dmVOr d1H1UJKkjGY9WESzrPtjTzPn aG93 Oyc+PULikJbqz5YzVxjmu5ju d2gyxQe1HqvqIJDbfoUtdXbb RJX7h8YkNn4aGYWloHY2tYZ0 aD0i BqRlShC7QTlqI573AkLyqHAb MrmjS95fD3ZoePK+PHRyPjx0 PRKjrUvtXF8uA1RaKFNgpfwn bGVm sBycUY5qBWWqcalgUCXohG6v APKgT0n4RoIiJpT5IIknI7Pq VIEkcvgqZd67vM9tOmPvPuV6 MGlu X6OoxlT6HKVoeDIdNHpaJTC1 Q65cr0I7ODWrIRYdVPK0oLR7 bP1jhJewyovvlFJhhTaeoaQr dGlj JYqfQTvcG228NQRdqJtzThZh ZGluZyBEYXRlOiAgMDYvMjYv MjAyNDwvdGQ+HODdJES7zOhy PSAn xXTeICtoWn8syGntdWwfLF1s ZOLvcxaaOHUznW4eGOGuxHQy zVveFD7pZOMbqnczw438YvYk MHB0 TARerKNoI1MqsP8kJdSiCMWu AJMvK5JlbTLcRKqzB719FHdl HbJ7FRNnpyRaH7RoCHRyyUgx OiB0 h4B3Hj8Ts5OhfofoP4JqnWEk WlPrSrkrLCb9F2IxUjfxsHA+ WK99MHDeTW21DTy3ZHY5lCod PSdi QLDoF0ZvwB6kOnQfCWRlGWUl Oyc+PHRhYmxlIHdpZHRoPScx YLIgNxUcuFrrBD7qCv1hJOGh LWNv iLqavAWfMbMyk9goUIZgLExp CG5jgBbeH2VeiDH0QEZnk9y7 Ti97M03iI9ApnSF+PGNvbCB3 aWR0 fD6qQsCeNuM6QLxeS973GnYf fTJpIwwmc1okv1jszAh8EbC6 FFWcmzNceOxiTRZ8p7AjCn64 Y29s IHdpZHRoPSIxNSUiIHZhbGln pm2qtN8vNp2+VUVhdMF7kEC2 lZ2aBwAgHmB2RVzoD665JlJw cCIv Oazga5fuh8itgZn5UeOpNUWd enNlfZwvDSB9j8HvHq29U7Hl zWzhb7MsLgx8hr90uVLws7G0 bGU9 C8EgJUUzgwspgOTynAesHO1i QYGwgqmvGJQtbI7qULAyP8r3 CkKeVrN7WHpuM8ZgleL5EWAt bGQg DJRjgTFUfM7ckhsyo6mhkiqe EtBmWFXgDYf5TFk0NHJpiCnr XdVpMBY5KsB0YMY3vXArtD5y bGln cybbtN6wGkg+FSH0tUFncIBR IV9oCxquhXH+RLZlMLI3yUnx ZUucNNZcrV1lMGRaS4v9UzJn LjA1 FTucE4RubwV8LWKndJXjHPDz hUHYwQ1hfdupl7vxlbatIkAo ERCsEPj9NSv5ACUlqDoxAgSg ZWZ0 YzQ7ASI1mKRxyH1phXuztypx nR3mRpw+WxxqzFhzKPK0BEo3 E1HoNts4XYNpuDunEW1zyBLe ZGlu Sr2lnQvrxFqvMV2bVWXhvzyh g393PdGfw1scRIKusXHhVXwl ORK1F44hy9C1HAKtAHThKJB0 dGV4 aX3ffRsumonqyOCtcRqdlvMt dRmyRGewWEfwX876VTKtiSnw KpAjMVr8F7ZgNop0LRBklQnh ZT0n jPDqBCtxGb1rcPdmaKvwHV9i MHHainyom343OxNgc3yiQGIg lLIkWLztYEF3F75gc9F2PCPo MDAw PKP2dRI4hY5beOjyfvmulQCj hZsjzuLymTdqWJrnQUueP213 SKXxnLngUePnfNe2G0DlWvn1 ZCBz tNcvXK9kvLBhFLakPa1tsHbx fVzxRM9jZYFeeysks013IzVv g0gfSCMvrAAxUYjaUJT3R61l b3I6 PAYsNYKoMSA9bFH4kQ9rdOof bjogbGVmdDsgdmVydGljYWwt HDjhH903NEDcoJsnRxUypIvw bnQg BVicGRi5R3KkAqtsiQG+PC90 TCFeTS37nSFakZKpj6qcyCu1 IhMlTJStNBV9eUuaKGniy4Tx ZXIt Q98brXGak2U4OZEgeZjrwKEa HbPjfFV8wN5aOCyoelfsw4zp dnohQthmk8rplg64wC90S39x IHdp LRVfVZOsXILeZMTkkEjujh7m rW5xZe4+BRRjhTB2iIT3cR2i EBDpPiD9TBdeW444BxUdjBSy Pjxj d8vsx0iwhDi6QrY0PPXmltKp aDnhBQF9w2GhTi70F88gUYnr VFXiBKHsYDGwOOVouDtmbs6x dG9w Ii8+ZYCidLA9zKC8aR5gKnPc CaO6GYfeT751OrChvFYrThzi R98wQ8QopXH+ECKqTql1TXCx dHls GZ5zoHZrUVrrFa5vZDQ0LtXy TkBeSRnxV3VqKAOeuoyfoxzw aHJ1RAFxKOVxaJ68Oa1guHrc MTBw pLJIaA4jdjpyg1enledfDtCh KCFbDQv9KIr1QNAaxLicXgGv FXN2DjC9KGH7mFGswF2fgMki bjog xJ0cO8XkXMImaatdLk89gN9e XeCzTxH3GCurJtc+I0FFChbe R65LBhhGQDRLMYwlbSP+PHRk IHN0 rSgeAYzoLKRxqS0uRHVuU0n4 HcHbHrM3VTxaX3ScNLJkbnjb Is85gP0qDkTbMnS5NVokK9Vd bnQ6 POTwaAUkKDorLXZ6P05wx4B6 UAArRBTeCMT6kAV2yY7ztXrp bjogbGVmdDsgdmVydGljYWwt YWxp O222WNHmiBpjLiB3YuN4GpN0 BgH9D3QmIqx2FGYluLtoYL6h uBVjJTtmMn5muWhrgOcpTB4p NTBp yinmIAUhlJ1pVBOpeYRerSuq NH9aLSRainkiw002RiGxFVC7 PVUceASnU3QmyQ1lLmOzEKZo MDAw S5OlgWCeXUkmT747PZhhArS8 MSCcfjBuC2CjOLVxzQqtXnN5 t0S3Kq16ZJZXNHDohhwkrAP+ PHRk SHI0kUzzXEkrYHEhiH9oQUJc F1e2UeMgOnT8VRlvK8UvATXg mnytVo60kD6hZoYgBpP6JIol O2Zv wuO4QFSbbIRjUVzvKTJ3L54u a0N8NMRtYEXsNJK5gUH2lQ1v bGlnbjogbGVmdDsgdmVydGlj YWwt BZucS447QEGvbRlwLnWDZFNH RTwvdGQ+EHOtYDV9iPzxCBrv BXStsJ6uVLMcU0f0CaPkFoH8 MGlu A8TzGPZadkrxKc06vS7hKbTq OdO3PAoiA5WkxvJ3CNSayVPv IOhvPYV6F05zl3G8YRJaHLJm MDA7 fOH6oX2laJjguwmsaFKckNfj xdGilPnoMNsaFDczY433ZALn wIdzOz6LYP72UD52V0RmWbfn dGFi bGU+PHRhYmxlIHdpZHRoPScx RFUfVuHivJawOJ2cXt1hQWNz XMJcdAmqeUAbXzRom3nsBYIp ZTsg SW4hfZyzL2IfeBT2OIQrg4y8 El72K89xX4InuHR+PGNvbCB3 gVV9iR7sHtWwTgL8VOyqA671 InRv cFZsSsijw3bht8viqHt9KhAb GZWoiyFtsZkhMLJ2z0XoMk56 N21uYCneKQUlWSLlXGScWUMb bGln oj3ohX9vIw1+XCNekII4sYL6 nP4pNiIkXaX9DEgtK221IeQf zEEyHprxN25fB5VprYU+PHRy Pjx0 DNSfyJocWP6atDRrYCbaEj6b QFI9PiMiQgOdABfcU5ZjCMVj cwluklfpuSI2WYDzSTDacX67 Zm9u mNgoOf2aRGNvKJU8BXQwiETz W4OkoP8rUrAdSLMvGLYfY1Pw pOWgRQjlN467KEplAfW4MBCj cnRp H2UeTTYjiEsbZhV5y7V6Lz0D nRjafMBhHA4mAaZeKAh4Q9Ml Lli7OCInaOqlVI1wxDFcGOic Zy1y zXyhvUwyDV1cZYWboilte502 LbDgf0qvXCCgxXZdKLxrTXL0 E58ue7X1TGWyAUFwHTP5jXW3 dC1h bGlnbjogbGVmdDsgdmVydGlj VFjxTRivK019JTPzzEdcBqLR Tff1O1VyMhg2ORWzwEfkNV8f cGFk ZWjpYh0zcXozpHanVC7xTPOu mdiwv435PpFyx6qkLAAqbYMj ESozTBN9S09yn8S3KUAySCKw MDA7 zNH3pL9baRarkkknnRHnbOvy svQceSrxTGdbQGysQ355SZFc xHcwAi4CImg0Z0QjCic8QYZg dHls HA0rpWCoHXavXp4qlJxldExt OZ2cVNYyzoqzw689NaJjd1zv QKOohUPxIXeuCCI0Z28kx2S6 ICMw BVUtKNE8kXZ4jT2vrDvexnez bGVmdDsgdmVydGljYWwtYWxp S635GZDahAzbOxPexXJlZyui dGQ+ YO26ad14Z4WuHizhMvw5BGWt UXN0nJU0fJ4eSTZcMXofv3L8 [id number] ZTog Y29 (more content not included)... [facility] Office/Clinic Noteon 024 Office/Clinic Note Patient: SOFIA MIGUEL Age: 48 years Sex: FEMALE : 1975 Associated Diagnoses: Obesity; Diarrhea Author: Roscoe Stout MD A History of Present Illness 48-year-old female here 1 month follow-up of monitoring her Adipex and obesity. She has gained 3 pounds since being here 1 month ago. She admits she does not eat late at night because of her work schedule. She has been attempting to continue monitoring her diet. She is not as active. Denies any side effects medication. Compliant with following up. She does also have continuing diarrhea. Has had this ever since having her gallbladder out. Review of Systems Constitutional: Negative. Respiratory: Negative. Cardiovascular: Negative. Gastrointestinal: Negative except as documented in history of present illness. Health Status Allergies: Allergic Reactions (Selected) Severity Not Documented Acetaminophen-oxyCODONE- No reactions were documented. Bactrim- Rash. Cefaclor- No reactions were documented. Septra- No reactions were documented. Sulfa drug- No reactions were documented., Allergies (5) Active Severity Reaction acetaminophen-oxyCODONE None Documented cefaclor None Documented Septra None Documented sulfa drug None Documented Bactrim Rash Current medications: (Selected) Prescriptions Prescribed ALPRAZolam 0.5 mg oral tablet: 0.5 mg = 1 tab(s), PO, BID, PRN: as needed for anxiety, 60 tab(s), 2 Refill(s) Adipex-P 37.5 mg oral tablet: 37.5 mg = 1 tab(s), Oral, Daily, 30 tab(s), 0 Refill(s) Eliquis 5 mg oral tablet: 1 tab(s), Oral, BID, 60 tab(s), 5 Refill(s) Potassium Chloride (Eqv-K-Tab) 20 mEq oral tablet, extended release: 1 tab(s), Oral, BID, 60 tab(s), 5 Refill(s) amLODIPine 10 mg oral tablet: See Instructions, TAKE ONE TABLET BY MOUTH DAILY, 30 tab(s), 9 Refill(s) cetirizine 10 mg oral tablet: See Instructions, TAKE ONE TABLET BY MOUTH DAILY, 90 tab(s), 1 Refill(s) hydrOXYzine hydrochloride 25 mg oral tablet: 25 mg = 1 tab(s), Oral, q6hr (int), for 30 day(s), PRN: for itching, 120 tab(s), 0 Refill(s) hydrochlorothiazide-losa rtan 25 mg-100 mg oral tablet: 1 tab(s), Oral, Daily, 90 tab(s), 3 Refill(s) tiZANidine 4 mg oral tablet: 1 tab(s), PO, Once a day (at bedtime), 90 tab(s), 1 Refill(s), Home Medications (9) Active [facility] 37.5 mg oral tablet 37.5 mg = 1 tab(s), Oral, Daily ALPRAZolam 0.5 mg oral tablet 0.5 mg = 1 tab(s), PRN, PO, BID amLODIPine 10 mg oral tablet See Instructions cetirizine 10 mg oral tablet See Instructions Eliquis 5 mg oral tablet 1 tab(s), Oral, BID hydrochlorothiazide-losa rtan 25 mg-100 mg oral tablet 1 tab(s), Oral, Daily hydrOXYzine hydrochloride 25 mg oral tablet 25 mg = 1 tab(s), PRN, Oral, q6hr (int) Potassium Chloride (Eqv-K-Tab) 20 mEq oral tablet, extended release 1 tab(s), Oral, BID tiZANidine 4 mg oral tablet 1 tab(s), PO, Once a day (at bedtime) Problem list (past medical history): Active Problems (8) Anxiety asthma HTN (hypertension) Hyperlipidemia ALVINO on CPAP Psoriasis Tobacco use Venous insufficiency (chronic) (peripheral) Physical Examination VS/Measurements Vital Signs 04/19/2024 9:05 EDT Peripheral Pulse Rate 70 bpm Pulse Site Pulse Oximetry Systolic Blood Pressure 100 mmHg Diastolic Blood Pressure 60 mmHg BP Site Left arm SpO2 97 % , Measurements from flowsheet : Measurements 04/19/2024 9:05 EDT Height 162.56 cm Height/Length Measured (inches) 64 in Weight 100.24 kg Weight Measured (lbs) 220.991 lb Weight Dosing 100.240 kg Body Mass Index 37.93 kg/m2 Erin Body Weight Calculated 54.7 kg BSA Measured 2.13 m2 General: Alert and oriented, No acute distress. Impression and Plan Diagnosis Obesity ([id number] E66.9). Plan: Refill of medication sent. Continue to monitor follow-up in 1 month.. Orders Orders Pharmacy: [facility] 37.5 mg oral tablet (Prescribe): 37.5 mg = 1 tab(s), Oral, Daily, 30 tab(s), 0 Refill(s) [facility] 37.5 mg oral tablet (Modify): 37.5 mg = 1 tab(s), Oral, Daily, 30 tab(s), 0 Refill(s). Orders Evaluation and Management: 53011 Office visit - established pt, Level 3 (Order): 04/19/2024 8:58 EDT, Qty: 1, Obesity - Diarrhea. Diagnosis Diarrhea ([id number] R19.7). Course: Will do a trial of cholestyramine once a day may use it up to twice a day help with diarrhea. Will reassess 1 month.. Orders Orders Pharmacy: cholestyramine 4 g/8.3 g oral powder for reconstitution (Prescribe): 1 packet(s), Oral, BID, dissolve in water or juice, 60 packet(s), 6 Refill(s). [Electronically Signed on: 04/19/2024 09:36 EDT] Roscoe Stout MD [Verified on: 04/19/2024 09:36 EDT] Roscoe Stout MD [facility] Wound Care Noteon 04-10-2024 Wound Care Note [id number] TIFF [facility] Coding Summaryon 03-29-2024 Coding Summary HTMLBase 64 RkuoppezQRs4yVo+PGhlYWQ+ QN5RMPNcR95vcHNmeJ6gK7BM TElOSywgQVBQTElOSyIgbmFt CJ2juIHrIKHd IC8+JJ1xRNTmYtttlNZhr9A5 iAB8V38zvx6vSLutnDL8PHIg HzDsfjabp2bwtOo0EDiuBisv OyBt GDFxqH15VOZ4kR48Bu11dGJs gOFle5elyDn9TiMaDTUlTPK0 eZepWBvgl1CgWTBoE86nvACo c2U6 ADPlnJdbzRJeDoRwzWL7uL3t KJpcsnnkw9staqqdAdb9lp48 yXDsy9J3rFZ5I2PxvoN4QBRp bGQg DiwmpYYQiB7xnwtdk6jqypbf QvXvGGOdHVs9YFx4JUUmdPfz MmAvIU83BUR5BKKbfaRyH3Yh LWFs vBthAuW1d2L3Yo9GA4MHRyhn R9GTSPGZMYjuyLX+AS71cr05 H4IxXifmTbv9DYLuMPQ2lSU7 aD0n HOLdPTbhw3D8uDK1V2KkuoEa ai1be7nnLWYiOSmzS24ktOEr i6L3MAStqTI5JQYluJvtWsFs aG93 Oyc+RBXwfOpai3TnBsmqi9nu w6weuBf3IzqkPZJewqPzdWaq CBL5i7DeGa0nQEYjbYN1sGH8 aD0i YfCkXaS4OJbfX992WbBliZGe HtieY67bH1FqkTX+PHRyPjx0 JLJtzMhyXU0oT2WiLNOsotnu bGVm eUarWN9dPHJlmrudSKNltG0h BZPfU5u9FiCxPaI0UIjoK6Vt ZFIantqaEm24uG6eIaEkSqU5 MGlu B3JfgsV7UKDonFJcDLkqMET2 S79cq5M0DAVdDCEhHKC6pST7 vH7ncDkyqyalcJCciCwiamGl dGlj LPiiDSgdF419BXQraIqoWiZo ZGluZyBEYXRlOiAgMDYvMDUv MjAyNDwvdGQ+ZEAjHXL5tZwb PSAn kUCdTIxnVd3ipHcziPrnDR8h VRGfbxynSFFktP1xPCZqhLXs aGrqEY2sIVRjqmudh242XmKc MHB0 SXHdxCMrJ8YphN6tWpLlMHVn BUKpJ2JcwKRhJTfvV580QEwy WqL0VUHetvDxD1JjPIDxoUds OiB0 n2Q4Ob2Vu9ZlvckuR5GieGLq IyZuAlctKQr1E0KtGfshpUW+ LI44QQXiWV35FXj3CBA3iRvl PSdi TWMgL8IxxJ7cZtUdGNFcPSDn Oyc+PHRhYmxlIHdpZHRoPScx HDUgIbLcrTyxUK0wUh6uYEKo LWNv vQndtSNjBwCph4nuBZDbBWgr MM6zoYavF2IglTR1ANUtj3b7 Fs62K38dF8EguAX+PGNvbCB3 aWR0 pP0qQyMySlR2HPnpR621HiVh jLKdSgxko1kyc2neaGn3NyG6 YLTneyWqmRswZGS0a0McYj09 Y29s IHdpZHRoPSIxNSUiIHZhbGln ff8dxV2tCg8+GJRgxAH6vOP7 oM9bFdLgCbK6FAlmN065KtBz cCIv Cpeqg8xpw5ithKr0MwBkVQAz liXwiOgbGKA1h4WhMh50B4Pq fNhrd0ArZcy7kv10gOSve3G0 bGU9 G2SaRMGvcyfwnJDhgAnxUN4v ZOIlnkpiTZEqiJ8iXRSiD8s6 QoFvVvY4ODqeM0HyydQ4IFBn bGQg EWObiWUKxO1bfiazo0xzvwqe DlOuKGEdERe1LHr3DNXhhOfx KoEiVMW8AeJ7HEK9yWYmyQ9p bGln fzpnuT1xYkm+IXP7eJDkqCHW DV2cLwzyvZP+KJGeEFQ3cPrc BKzsDCShzL4wAAFsL6q5CyVn LjA1 HQmjN5ZhywB6ZGDprWOzYOBm aDCXgL4kdbxpy0tnvblzHwDo ZSMhWEw6XFa1ZIDfgIsnPkGe ZWZ0 SqR6EQR7nMBlxU8cvQmdaksk qT7mAyg+ZwwiyEwzICZ9GOl6 J1DwTio9WZVvxZvtMU5hyZUk ZGlu Qd9bzXowxMipIN9jQUKpgmbs p547KkMpd9psPNXdtIBzABpz QNC3T92hw8T3ROEoVFDzDRV1 dGV4 fR6kyZlbrhgpaZWzjThtxzGw oIclZOgmTTzzF485ETKxpBrx HdYnHBv9H1EhQgr4TJDpgMby ZT0n dVNrDFggPu8oaPjzuPmfSF4k YAPjfbrgz048DoGdu9dfVZLs wQGyEJgsQNV4W08wl1A1PWAg MDAw NUJ8wXZ6oC1tbLrjjbvyxOBw yBtenaDrlHkwFIcpTQriA892 ZCKitLzwOvUftVg9F3EaHgn7 ZCBz hPplML7foOCtHMwoOj9xoCag bGypMZ5hJOVyyxoyp380VrAv e7vfWDCuyJApHNhtEUC8C89o b3I6 PZSzOJObDUO8sDC9wS4obKuq bjogbGVmdDsgdmVydGljYWwt EYgrY914PVAivOtlLxDpiCkw bnQg SOixQEl3P3WjOruxmWV+PC90 BTYoWW49aPUjuDKao6ovaMk2 GnLvBTNcCFD5lRinRKmfb4Fy ZXIt C99lbGRfx0B6FTNbgGgkdYFn NhZpvGT9tC1fJSivzcgzm3gq ydwxFbxkt1pzvo99vI30Y23l IHdp HZPsQUSrZWOnPLSvdYuipq9e hI0gSl0+GGYwpMV1fTJ2dG0o FYKkPoX2MNyaA862KsPtbVNy Pjxj v1wnq1cqbGv0KnJ7CXDqcwIo kIrjVAZ0l4FcJu34I84uTNyd GAVzWQVfJCBqRTRepIqpac0z dG9w Ii8+WNGkeCG2rNZ2eI8wRuWd DjJ6KYvhL826XhQcxNMaXfzg T89oN7NsbXD+AZKlPqe2EIRs dHls SD3ldTVoONquWg9tKGJ5NpUd ZsJsXYokR9BcMPBvjzbqpibu cPY4FTNnKBYxyU61Rh3yvUzy MTBw fHZUqT7qpfljv4nbfcaqQrMp URAiOYg1SMm1PRWgwQzxFwAo BMU9NwF4YRG6pPCdeH8goQct bjog kD2dE1GiKBEbovcrDy18yQ4i NeGwJjX5VUuaHdj+X5SPHlqq G47ORlmHAPKNBZfkbAG+PHRk IHN0 wIthGSamOBYanQ5cXEKsZ1e5 KiWiNcY0PWjjJ2CdPTOadqzk Xt02yC4oNwPjBtY0NJuiZ9Bg bnQ6 PLBkyVNrRLvmTIJ7U77zd0I0 AORhLEOiEFA8tMJ6rZ5hkAlg bjogbGVmdDsgdmVydGljYWwt YWxp O781QTWtlLsoMiZ5YiY5TnF4 ViB9Q2FaEmx9TQQamQwlYD8a gLBxQGsaBo3ekTvkePdjWY0j NTBp wkdkUXIpsI3hWBRnaMIxbZsh BR6hVOTsmowop982UxVmRTQ1 DGCtlJWsJ6FroF8jBqHvGDFc MDAw F2MiuVSrVNfeY335UIjlEfK4 NSZkgsIxG9QvWSWbwXinOnV7 t0K7Jx18WYCQHEAapnapsID+ PHRk QQF0mObwAYzbUJGrfP7iNARi T5u0IgMiNzY6SRixL4ObHEHk qtorMj37bE4jAsDdNtW2IKdb O2Zv mxN0JDRnuZWwUSozUMY5N69z t7Y8XFBbZWFrSTF0mNX9yA6w bGlnbjogbGVmdDsgdmVydGlj YWwt IRimO533SVJquUrbJkKPAVZQ RTwvdGQ+VWTnJGU3gDcmFAna VXDqkU1gBFHkT2r1KtBeSmV2 MGlu V6DhZLHamkviNl15gD8zMuFj VtP4ZAxkC1KcidK3TXSwnCBv QKicOQM9R16pf0A4DEJlHHPt MDA7 bKK2aD0kcFgcklxgaHNwgPjl eoLbaOyqUNbxDZhmK646XOQz jUxyUd1JMX39KT73E0DzKbpk dGFi bGU+PHRhYmxlIHdpZHRoPScx RSFsOvQwlIunUV5cOn0nVMIt WNVazOrhoHGpJyGch1peEUTc ZTsg WG7agKllZ4VdrUK6QLUem5p3 Zs48B80bO1UhbHT+PGNvbCB3 zTP6yP0fIiQbRhX4BXgxM238 InRv mGQiZmwof9yma9xqmFs0TeNx SCPqtdDavKqfGSX0u4AgAz11 F91fGQwiDXCfFLEiAOQbXBYh bGln yg0hwJ3zFs2+XDSwxAP8yTK6 bN4mKjJoImH5EBasC956CrAm fLRoSfdjE62dI4RnjLT+PHRy Pjx0 WFUosCkjCT9knXRtTIuiPo3n FPJ9KrFbTfGdYCkyW0VgVVYa rhebmywyqDN3NAMgQOPniI62 Zm9u aLpxKm0iADUbRVX0GCJmeRCc L9FaiU5eWjZaDVHcCVLxK7Fo iFHiQZtdR466ACztGoN2QPGy cnRp H6ThPYEyhIgjWxH7c7F7Pp1S qXtytMSwQP9bItHuJQb4J4Xl Bxm3VHOvgQchMK8ftIQfKDza Zy1y iMcmiUdoLG7gBLMsoamkq364 SmJwt0czKXHiwPOeGWwfQXA0 C54pc2Q7DDJaGRHjABU1kXX1 dC1h bGlnbjogbGVmdDsgdmVydGlj TXnuCTnpQ963PKTbdDdcPvFO Tju4L7HvOei0NSNkxPhhLX3q cGFk MYnxYu4dmHzfsCllZA8yZBRi fsigv296WbSyt4rqCIBqmCSl GMalLVX0N13mn1D9BPVoDRLy MDA7 sZL9iI1gtVnlzjwsaCWasMxf xwXsnNqmUOcnETscS377DIRc jYihWj0ZNxs3Y0VbRgj6YKYq dHls QL1izTHrSDtpGm1zlDiznTme VZ3gBPOeqcszc205ElMei9uc HMVxuLCtHToyJHZ4Q82dy9Q8 ICMw YMGyRET9eNP3cH1yrPytngnn bGVmdDsgdmVydGljYWwtYWxp B956LAJxcCwdJeJbbUVzVbuu dGQ+ EP15ni29I5ElUxlpMoo3FRHj XZP2mFF8xU1nRXJwUWfjd8R8 xVB7N1ThxxTtti0rb8laDIVm ZTog Y29 (more content not included)... [facility] Coding Summary HTMLBase 64 EwwdijatPXi2tQf+PGhlYWQ+ KO6KFHUiE87udKVsbL8aU1GZ TElOSywgQVBQTElOSyIgbmFt LE1cuMOdMCGt IC8+AU2oHFCfBblmhTWyr0Z3 mRX1S96ffu8wBQbeyOB7APDz QvCbwrtza1khgLu6GRmjKqit OyBt UQFhiA37SEE7fL91Bh69oMOv wTGhc2twcFe4XjYhAVDfWKF4 zQtkAQduw5ZuDWKnK72axKQe c2U6 BJQcbVimsOSmAfZbfRX4sL6f NVbbqnuve2ztsgxcGxw7uq95 uMPts6F6lEJ7A9FxpzC1JMVn bGQg ScyoiQZXgO1exzzie5mfueqb WzXnCUWzGDe5TIt1XZHltBpq MkStPF64OGL5CUYognNqX1Cf LWFs qLnxIeC1m3H7Ow5RO1XXXefu Y0JBXLJYPCpguYD+CS01oc16 Y6ZzBozrNjs6QTWnPDE4uGV7 aD0n EQNnPXhqs6X6fVW0C1HbwoZf dj5aj3htFSDiANnbJ63isUDl n3A5EKWhpHU1TVUoyLpoAsOl aG93 Oyc+ZYTnyWkwv9TeYhaaw6jd x7nfgBd3BzrsXPVzaoQceOye BNP4p2NyAm8iZPTffCP5cJS6 aD0i PzXkCgP2WMluZ598RjTxxZGf IzugX46iY7PyzGQ+PHRyPjx0 HVBiiHkqOM2vE6RgSLDsuidq bGVm fSxaUK0wMUFejxolRNOqfW8x KWPpJ0q5YdFfIwW3KZmiZ3Or JPZkutpvPq81jD8tThIoAsW2 MGlu D1GjifZ1WTEdxBHnVHaeRNJ6 X56ti8M2BNZjQOJzAQR8yHQ4 uF8aeVdkuvlaeBBtiMkgarFg dGlj FBwxBRwtP889MYEueLkkHwCy ZGluZyBEYXRlOiAgMDYvMDUv MjAyNDwvdGQ+PYCiGVK6bFsp PSAn fAPoIGnlYg5euXoayGhaOV4d ZAZzaxilFIUxsK7sQDDyvICu jPueWS9nXYGwfrbok269NjWu MHB0 MTHfjWPhO6UmtL1yEqHmPGXj OAQlW9SruBQqSLdjK531RKyg HiA4VIWheqRnW2AiWNDfoDwn OiB0 s6K2Nr6Eu0CfvrfeI3VenACn RiIoSebzRCm7W9CmFveptQX+ BR33MIMnIZ24MQm7UUG4kCby PSdi AMVxJ0WqaH6vCoEyOSRvFCFy Oyc+PHRhYmxlIHdpZHRoPScx VBTnDrJofTwxUG3nKf7kESAk LWNv jLsizCNeKoJvt3jtJMFjZFmx XG4nhCakR0TehCW9GJFed6z5 Ur06N90kV0KweFN+PGNvbCB3 aWR0 oO4nTcAiApX5EKwvX549GyWp pQGlEmomq3yje3eltWy4NoC0 MZFcutMfbXslFKG1v2FjVk07 Y29s IHdpZHRoPSIxNSUiIHZhbGln is1leP2cKs1+POBkfTR3vON0 lJ2eFnRhScT3HRyjP778ZwPl cCIv Wjotl5ttf5lmuLy5BqFqFSUg ehLtaPmeQGF0d2YrTd64X3Iq tHabi0KdBjo0km89qIMuo1C7 bGU9 U3BmECWjemlqsRVxzAqbSX7h ZLHqmrxpMPUpiW7yPUGsK9i2 MuIzYtD3QGmsD0GdbjO8ISKx bGQg OUOuhKUCcU3agvkmy5awdwkd OrDzFDTnTIu8GIi2MRPwyXkl RkFfCAB7TxS2GAQ3xUMghH4h bGln ysyidV3hZtg+KJC3pEPjfDOZ UE8oKkgxnDE+UAQgXIQ7sCvp MKsgWTXosH1wZMLyT6a9RrEu LjA1 XPfgN6MnplN1HDFwcIWuDQXv oLXOyW4xqpmfv9llemabFtAe BOXiSAp8XWn4PEHthXjdZoXn ZWZ0 GiF1RDR1xWSdlC7fxByqzoaf jZ6jXiw+SqigrNyqYZR5LYs7 W1GcJza7DLHghOigIV8vfZGr ZGlu Gv5hgFrqoFbhHY3yZHPywbzf g870QtTko1wuNMOxjSKrHBjl KUP8W91il3S7FTQoKQTpSEZ4 dGV4 aP3gdZibkilsjLDtaXstyiPu xRolLXvlNPraY342FGTizNwr UuVqOWj2K6LjRfd7KDWfsTxp ZT0n eUXsCQpgCp2vnBhhkYzyED0g BCLszrxgw043PbCzi5bdSDNc [id number] MDAw DXI1rCT8yC4qkBnzqaanhHKx dJsejvDbnCvqIOinNVohE145 JMMcvHdtDrBvdFr5M2KeJua2 ZCBz rWzeMS8nuDPvYMpuBs3puWrv eKwjNP8hFOGznuzvq721PsDf y1vxBKUcsRBoDOfuPDH1R04b b3I6 DJFfHILjRBY5yWP8rO1dkHne bjogbGVmdDsgdmVydGljYWwt BLcfX947UWOzwHydXpMkqLhh bnQg WEtgTJg2U1IlBertdUI+PC90 XEAvET77yAEblCTet8wnhOr6 CsDgVCQqAVY2eKqsZHpzn6Hg ZXIt N07nvBMyy3A9LDLqlBmjiEBn YeAsoHX1fN9aPTkvnnebp4yo bwkwGszqa7xulh64tX28R75s IHdp TSRnYYHpOHLqDAQpjIsibb7e hB3xWg9+IVHelRP4jMM4tI8t ZIMhLnZ8RLrbV931VkTvpFUh Pjxj v9thf4nluOt2WcZ3WNFlzcNh iAbaTFU4r8GzAg62V07dVYms FCZnZJSbHKJeGIKbfEwfak2y dG9w Ii8+LWWejFW9lDQ2rU2kYpDk BhH9SMgyQ472FrKxjPDzOxgo B49aR9CarHN+ZNHgRsm3GUQi dHls ZT3ecOEzVNtiMe7mPAQ6BuPu KoHoZTbjB3FzSESlzkqrdtkm wHO4TBGiZERqaU16Mx4jnQmx MTBw qZENxV4ezzgya6jrnmnwHqVm GZEoRJy7BLl7ATFlyPvePvMl VOL1GzY9XBV2aCSgjS8wgObh bjog qV8yZ4AaHBZwikfkPl12xX7r JnViSgQ8CIgjAbw+G8BVPcai I94SQnhAIPRYZNjhyYR+PHRk IHN0 cYjnHIdyPWUzuH1eYUOuI1o4 XuAnBmS2CKzkI7RvEBBxzrbs Vq47vQ3hJjNsBdN8BBatU3Rj bnQ6 YZWpaYKsYQmxKDY9C08ek2K2 DBWmYNRbHPN0iZV5gN0iqClf bjogbGVmdDsgdmVydGljYWwt YWxp M248DPCmeOwqPcN7JqU0PiB3 QaT9J3FgEaf1DZPehDvcWK7b dMRuEHsyUh5lpGmteOjzNH1b NTBp azscYOIxiW7tBABttYXltFbc KO9hJZZbklbus171LdHnEAX1 XUPdtYPrO2FqiB4jXzOhTEZv MDAw X2SwdWVwHIpuA678VRckPrN5 MANxubWiX5JqRPUluEqpGkN4 c9V3Ot65AUVAPRZbyuuumHH+ PHRk HFJ4rXurHYzlUREqeK7xLVZq R0v4ShXnQeY7BWioX0OlNSZc usuoIu11aE4vGtHhBbN5XPjm O2Zv ltY0XDIiyRYzKMqnDGT0J46p x1V7LWLgVTSdBTH8lNB1iT6l bGlnbjogbGVmdDsgdmVydGlj YWwt IMzdC135JDCwnEmwViRPWVUH RTwvdGQ+RMRnLIU8bZkjINxc UDFbtN0mFCZkA2j8XrFsPtU0 MGlu Q0SiAQNrgfweVz27jO5kEbIc XoN4ZBydM7MnhbK8FGMfxQMi KWfeAHR5Q85gq7A8CJBzVCWk MDA7 sXW3cG1jmKqlneyiiLEdzGkh jgKacAwsYIroBLtdB614RDAf zRkrMm1MGY81CZ52R4EeGlfn dGFi bGU+PHRhYmxlIHdpZHRoPScx AHNnIcJdmJvtMD5kPh6hADIc ATYwrEixrTSzObNzz5cgYJXj ZTsg IX9brTtxF6NkcZW9FAUxr9j4 Pv43M05hS3IibZV+PGNvbCB3 qQA0bU4rJpPkMoH9ENhwP769 InRv tSTeRkirf3pyi8ujeIr4KwBk CKTcxsDeuTfaZLO2u9ApVp45 M21vHExeAQLfNLRhFPYsRNTf bGln od1urU8dBp5+FYRxbWK0zCG8 cZ6eAiXbLyM4VXveP759FsFp oPPoEquuR96eE1RbkFT+PHRy Pjx0 IMXxgMmvBH8xuFNtYFrwRu0e NGG8HpNuOzIdWQcrA8BeEBHi tivvhvboiVR2UWOqIQAszJ34 Zm9u iXchYt0tLYHjAKK7JARozZKx W6MduV6hBqYrKSXoFHReM0Kr lGJuTVcmC330UFlqWjD0ZWGy cnRp O5NlVNUreQmyNaK5i8L4Fl5D aOfurROnKQ5yHvAdWKd6Z4Ac Nqk3HGIvsPxeFU9bsYVuONse Zy1y wCkwwLvpMJ0jMJXiismne111 EvNaq2laNVMxiPGsELakUYE0 P67jb3E8ZBDgHXIkTQA9wIF1 dC1h bGlnbjogbGVmdDsgdmVydGlj QAaeAKfvG505NNRopXspRdHW Dzd5J7EhPoe1SECeyIipPF4d cGFk DNoyMr5wvEihyBunVN0eYXMd zufdl484HeGim7cuRRCwuLBd BAdpMKA2K13nf4F3IYDmIBHs MDA7 wOP2pA3vuQicthfsqSVvlXhn nsYgjGrwUElmESoqC246OQMw gUgqCm5SNnl1B5KzIax8ILAv dHls UA1ajPUzWGsiRy8yyMivqWil SR6mPSGlmtxrv087OtGul7qb WDIcoZLhFRjoPOV8I91wu4Q1 ICMw UEQdULD9cEM4pE2spPogbxod bGVmdDsgdmVydGljYWwtYWxp I072VQBfrSjoHwWdaSKdWogi dGQ+ UG36ii31Q5HwDemsGha3IXNx ZXZ3kNF2sN2xGYMoMFmly7X2 rBY2D2CjdiVbnp9ld5jkLWGm ZTog Y29 (more content not included)... [facility] Wound Care Noteon 03-27-2024 Wound Care Note [id number] TIFF [facility] Coding Summaryon 03-16-2024 Coding Summary HTMLBase 64 PwoqjkegNRd3dPf+PGhlYWQ+ ZM2FFLIjL77aeSRduF8oU8ZQ TElOSywgQVBQTElOSyIgbmFt KS5ftONhGDRe IC8+CZ1uSRCzEsbxlZMod5D8 iXK9N16irm0zAFjhbOH9KENl GhYvunmwl6qqdNx9DFbuKard OyBt ZUAimS76ZUR5bH88Pn76lQRh dHKpx7ynrSx0TxWmPFDhUIP4 vChzQEked7DsAIGmZ70ikOKc c2U6 XYAkyOeizXOcYrCwcYV1jE8e GKcgvoljr3dwxvyoBbe9xh29 eGEjd2Q7jIZ5U9FqbyK2WALy bGQg BnkeoJGYdM5myjprc6nmhclk DcZhJBOxNKb8YPz1AXGzsZdb FcNiKQ58SLD5ONYzcyGbW4Uf LWFs zDwxVvQ4q3I0Or4BT3OALzns A5WMOADPAQxcsSU+GQ18de75 N4WiCjgwRjv0WUSzEFS3vQH3 aD0n OBVxITroz0Y9aON0Z1JophOd dj3zm1ajQCRkIYmuV70mlCNe p2K2LJGurRH6SZXmuHkqTmZp aG93 Oyc+YIIxjTtxj4SbKjzea2wk k0dryXk5CdptWSYmeeCsxGco TFA3c0ErUb6bSGGayIP4wSW9 aD0i ReXwRjI3ZQlbG288ViAayFFq FevzU52tW9RstKA+PHRyPjx0 CBAzeUxrMB6iW0AkNUKycdnj bGVm qBqvRK4hVBUhhgokSDUczV0a EWVeS7z6HlEtMgH3HJimG6Wv MIYlmdxuVb49eQ8gKfTbAqF9 MGlu P3CrmiE2BDPbbRXjCBtzIEQ8 V87ao9M1MIIuQATsQNN5qJI0 sT7bnXgzoedlmQObnPbbihDo dGlj VSbgVRfwF383UPAeoHyfXxPq ZGluZyBEYXRlOiAgMDUvMjMv MjAyNDwvdGQ+GNFtRGW7uBua PSAn oCFgYEmiDp9feJjrqUzqQW0w GBFicfgnNKUtxO7cEJXapLYd xBuwOT9xUPMivepda968JdDj MHB0 CUSnrLKaR2OorD6fJyXlYIBv IJDcH8HzaXDsRCpfV096RUjc MsC5OYAzfsGfS3IkDFRgjPkp OiB0 e7T3Ja8Vx6WxnqgqY6AksSEz XqJwZdgqHZu1Y8OxXsbugZQ+ AY96JQRfGM37MCv8OCU1pThz PSdi YRFbS7MszC1fYqIxKIJlISLr Oyc+PHRhYmxlIHdpZHRoPScx MDRrYpYalFvtWV2nFd7tIJZr LWNv yAbswWCvUoOnv0zdUYEaGTdt YS3ysZyrK5PmvDV1ITYoi9o7 Bq89X61pG2DjfHM+PGNvbCB3 aWR0 xD0tDeOoEsM0LTguB809LxWx iKFtAkfti9pjz9uguVp9KdW9 HVUeqlPbxPgxETW2e8HdIe80 Y29s IHdpZHRoPSIxNSUiIHZhbGln qt8ijF2yTh0+SPAsrBF1tHD2 qK1zTnLbBnZ0GMqnJ317AzHf cCIv Vmubn3fsh1bgaWe6YtDsLOWt vpSojRhtLDR3f4AcYl69K7Yg lIdkg2CdEaa5jv30vVNiw2B0 bGU9 U5AzOSLbsrwqoCUrfZikIZ8z GTZlqnoaYYKvuU8jDAQdA3p5 KpScLuO2OOgsS0AjptR7WKWm bGQg SICroMXGxO2unzeop0xyzcio GbAoEYVcHCw1LKe7RXQppSzp NkFgRAC5TvJ3WKW5wXXedO1a bGln nucdqT4bPif+ZDA3uPAdfMMF FV7iQjfhyVR+ZBUhZQE6bQmn CUhjXIVivT6xGJVmF4y8HoHu LjA1 WEyvP1MjakN1ZYTctJPtUERb iOIHgY0xdhebf0xveetcHbPu RNTjKQn1AYv5FAVtkVzcCnEn ZWZ0 RrW2NVF5vFDzgH4smFsgfoks qS8jOlz+FzrloTyvOWE2DSv3 E7JjQax4YKKcsGnyAR2jwDCu ZGlu Yy1zkAwieRorZV0oCKNedqvj s273OnIcc2dfNZZfeVErWXvp VDH0V39df5E6MTVvGBGzGCX5 dGV4 dR5wbOhytlacjDAffUqtafIx bXwlQQjxGBcaE362WQIbgEdf RfJoPMl7F9FhNtw9ALDwzWfn ZT0n tVTjUIviFd7deVduoNuoSI5i CFGhigmri647XcPzu3fgFTZe jYMhJIeeBTA2U79al1X8WJDc MDAw FRN2nIH2lE2sgYrakzuejBWv bWdatrYzcWkkPGvdRDzmE062 CMSzuLxqKnNnwWr3O3PqSem3 ZCBz iIacGC9goHFqFIizQv4nfOpw yKztXF6yWMEndxpki080ZmJp t2tfBVRqgKMyWLtgIUZ3H43a b3I6 THNeYRQqOFM9oAD9lC1ibTyq bjogbGVmdDsgdmVydGljYWwt GMiaN614HYIyzWjhVoNjfBtu bnQg IWckXUk4S5CpAdksvEE+PC90 AZMjMW26bWSfiQDnl4mqhFm4 CzShHGMgFVH2rWxuBQcli2Su ZXIt T64atLVyo3N7LHPwcMayfIGc IkGubRT0uG9dEOqloewew5zy mozxPbfnz7cqyx79sC39Y27z IHdp RTFpQHFiXVZaDJSomQsycx0c eY2xSt7+ZDHsmXP2lCR5rD8s ILSiMyA0FCucE547RoNljLSg Pjxj q5ero5lzkZe9EgF1JRIjbgDt jThrSKD2m9KpUb70U28oTZwr OACwEKXaGULfKMGcnDguvf9o dG9w Ii8+BZHkiDW7fUI7eN4eUsBp DwK1VRmxC917GqDqnYZpOemj K76kT1JqzMU+ARTfVme1HFJr dHls RM4maDNrECkyUx5zCVD4MlXu YzHyMLatR4ZtSHJizgpbgvhy xCC2ZXExGAKfiR64Kg0baQrs MTBw sVZMaV5kflkxf7mueoerNoIv OXIiSPi6QRu3ZGHlmBfiGdDf CCZ2AvM9YDQ0bCUowE7diLqn bjog xM4aZ0QkHFLzzlkbMo38uB8l AlArMrB7XNbiQhz+D7QYOnah F83IRumJNBUCIJphpXS+PHRk IHN0 iHnqZTfvLOEhwN7cDGWpV7h2 EoWhSfD0AGrnX0PgXHYsyyfw Xp80jE9xXaHoXaC8QDbmX0Wb bnQ6 WWWpqFViCNsiCQJ6N24le3U3 XLPwIUBuFKQ3kZB9gS4imGpr bjogbGVmdDsgdmVydGljYWwt YWxp C616JLNkmZvcAnX2TpF0BpS4 SvN8R0IzMpa1EXCjtXwhUJ9u pDUaRQwfSm0ruBmraVsaZS3m NTBp pbkoYTYmdX6xPBYamVMeqCwi RS2fLPHyskzdo178DtZdUXT4 QZOuhPBcO0FgrQ1kZbCzYMWz MDAw K4QvpRMhOXwkF858VKvxObA4 BYRvxjZdL9WeIUTdrAvuZcB7 q3V9Ql59VZEBWMZuihmbhKB+ PHRk VXW5aUhlFZlkADRebG8yTZAb S2q0HwPvZwX3WQwzA2BoLPEu knfyGf98cC8lQiTuXwQ5QUpw O2Zv atO7OYYddYWbTZgmTZA4M68t q3I4ILXiCCYaIUY9fYR8hX4n bGlnbjogbGVmdDsgdmVydGlj YWwt BZymV582ZMXxqIoeJwHZSYYJ RTwvdGQ+FYXoCPX8wQfqYAie DKVnxS7aVUTxQ7g8FjGgKrN7 MGlu F1ZiILJesatcQb35cG0mYoSs AkN8HFsbN4MpfdC5ORNbeJXm GEfmZYY2R17kw0H1SWAyVCPu MDA7 wSH9iG1zwFjiwnwmwOUjtJeu lzZniMzyEDhqNXyvF104FKCo vTahQl5EUI56IU84G3DmZmnl dGFi bGU+PHRhYmxlIHdpZHRoPScx ZLOtCuTofAseCZ0bYn6bCJAq NRIdrQeeeKEhPgScs7vnYLZk ZTsg ZI9mtZivJ0PvdQL8YEBiu9r6 Qo81N24aH9YzqVL+PGNvbCB3 fRA9mO9aFyBwDlP5NWajZ248 InRv oHViLyvmi7dbh4tzvOt2AfLc OIPpauKfsPmhSYF4f8LsGi66 J72aEVjqNEIcJMXpIBShTSRi bGln rw2qdB2pGx8+NBJhgCI2sXL8 vD0xCqMeDvQ3JHodY325NqHn lBDnTfvuC72sD8FdiWC+PHRy Pjx0 ZCOddHefZW3dfPUbOCooLr5d CIL1QvLeCaYuYNyzC5RnAJGu xkwdhrazzSY1DCWzZQHlsM27 Zm9u xMjmTo4zONCaNZB6KTJafQNq A8CexD1yIrScNGJdBAIhV3Zw qCYbRNjlC773ANluVyG9AVDc cnRp A6UiBOYjgNjxVpA4b2W0Az8M jWdebEWeDP1nWcFeCLb5N2Ry Dpl8ITHifYvmHY2qdPUwEFfk Zy1y rNvtdNfoTI9dPNHsfwrxz549 NxRuh6ypBOFbyMIrYFqbMQS1 B27zg2M0UQWqBANlQTI6qZN0 dC1h bGlnbjogbGVmdDsgdmVydGlj PMhuYYacO475LBIxoDxkBaDH Txa9J9TeKwa1IGWdeIymDL6z cGFk XHpmVb2vdOaebQyuSD8xQJYq uenus450YhIfq2jdQWXvsKUv KNubFFW9T95uv6Q1CTLrAHFj MDA7 rFO2uJ6rpWixeicszLHtcKbz lyOvbGfzZTuhHMudF564IJEf oYhkXr6IGan8D1GzDkb1QUAi [facility] LN0hbUMnQMntOc3dwBqgfNcp BF3wPGBxbiyoq433PgDnj6mk UKAinTZpCLxtSVL8D94lx6G9 ICMw EVAiQGR4rYY1nB0wyYjftboi bGVmdDsgdmVydGljYWwtYWxp Y789OQChcPoyWmMdcEDdJgmn dGQ+ CB34yk89Z2CtTrplRzs5KXMs YWG0vZI0gH8jQJWcCMwoy0Y4 yAY8Z2AyrpKscx0ax8eoKCBm ZTog Y29 (more content not included)... [facility] Office/Clinic Noteon 024 Office/Clinic Note Patient: SOFIA MIGUEL Age: 48 years Sex: FEMALE : 1975 Associated Diagnoses: Obesity Author: Roscoe Stout MD A History of Present Illness 48-year-old female presents today 1 month follow-up of being on Adipex. She has continued to lose another 4 pounds. Her only issue is it does cause her occasional nausea after taking the medication. May last anywhere from 4 to 5 hours. She is attempting to remain active. She is attempting to change her diet to help promote weight loss. Blood pressure remains stable. Also with respect to her wound on her left leg it is getting better with wound care. She reports she is getting scheduled to see vascular because of poor circulation Review of Systems Constitutional: Negative. Respiratory: Negative. Cardiovascular: Negative. Health Status Allergies: Allergic Reactions (Selected) Severity Not Documented Acetaminophen-oxyCODONE- No reactions were documented. Bactrim- Rash. Cefaclor- No reactions were documented. Septra- No reactions were documented. Sulfa drug- No reactions were documented., Allergies (5) Active Severity Reaction acetaminophen-oxyCODONE None Documented cefaclor None Documented Septra None Documented sulfa drug None Documented Bactrim Rash Current medications: (Selected) Prescriptions Prescribed ALPRAZolam 0.5 mg oral tablet: 0.5 mg = 1 tab(s), PO, BID, PRN: as needed for anxiety, 60 tab(s), 2 Refill(s) Adipex-P 37.5 mg oral tablet: 37.5 mg = 1 tab(s), Oral, Daily, 30 tab(s), 0 Refill(s) Eliquis 5 mg oral tablet: 1 tab(s), Oral, BID, 60 tab(s), 5 Refill(s) Potassium Chloride (Eqv-K-Tab) 20 mEq oral tablet, extended release: 1 tab(s), Oral, BID, 60 tab(s), 5 Refill(s) amLODIPine 10 mg oral tablet: 1 tab(s), PO, Daily, 30 tab(s), 0 Refill(s) cetirizine 10 mg oral tablet: See Instructions, TAKE ONE TABLET BY MOUTH DAILY, 90 tab(s), 1 Refill(s) hydrOXYzine hydrochloride 25 mg oral tablet: 25 mg = 1 tab(s), Oral, q6hr (int), for 30 day(s), PRN: for itching, 120 tab(s), 0 Refill(s) hydrochlorothiazide-losa rtan 25 mg-100 mg oral tablet: 1 tab(s), PO, Daily, 90 tab(s), 3 Refill(s) predniSONE 10 mg oral tablet: 10 mg = 1 tab(s), Oral, Daily, 6 tabs days1, 2 , 3 5 tabs days 4 , 5 4 tabs days 6 , 7 3 tabs days 8 , 9 2 tabs days 10 , 11 1 tab days 12 , 13 with food, 48 tab(s), 0 Refill(s) tiZANidine 4 mg oral tablet: 1 tab(s), PO, Once a day (at bedtime), 90 tab(s), 1 Refill(s) triamcinolone 0.5% topical cream: 1 ken, Topical, QID, for 14 day(s), 15 gm, 1 Refill(s), Home Medications (11) Active Adipex-P 37.5 mg oral tablet 37.5 mg = 1 tab(s), Oral, Daily ALPRAZolam 0.5 mg oral tablet 0.5 mg = 1 tab(s), PRN, PO, BID amLODIPine 10 mg oral tablet 1 tab(s), PO, Daily cetirizine 10 mg oral tablet See Instructions Eliquis 5 mg oral tablet 1 tab(s), Oral, BID hydrochlorothiazide-losa rtan 25 mg-100 mg oral tablet 1 tab(s), PO, Daily hydrOXYzine hydrochloride 25 mg oral tablet 25 mg = 1 tab(s), PRN, Oral, q6hr (int) Potassium Chloride (Eqv-K-Tab) 20 mEq oral tablet, extended release 1 tab(s), Oral, BID predniSONE 10 mg oral tablet 10 mg = 1 tab(s), Oral, Daily tiZANidine 4 mg oral tablet 1 tab(s), PO, Once a day (at bedtime) triamcinolone 0.5% topical cream 1 ken, Topical, QID Problem list (past medical history): Active Problems (8) Anxiety asthma HTN (hypertension) Hyperlipidemia ALVINO on CPAP Psoriasis Tobacco use Venous insufficiency (chronic) (peripheral) Physical Examination VS/Measurements Vital Signs 03/15/2024 8:25 EDT Peripheral Pulse Rate 72 bpm Systolic Blood Pressure 100 mmHg Diastolic Blood Pressure 70 mmHg BP Site Left arm SpO2 98 % , Measurements from flowsheet : Measurements 03/15/2024 8:25 EDT Height 162.56 cm Height/Length Measured (inches) 64 in Weight 98.52 kg Weight Measured (lbs) 217.199 lb Weight Dosing 98.520 kg Body Mass Index 37.28 kg/m2 Erin Body Weight Calculated 54.7 kg BSA Measured 2.11 m2 General: Alert and oriented, No acute distress. Neck: No carotid bruit, No jugular venous distention, No lymphadenopathy, No thyromegaly. Respiratory: Lungs are clear to auscultation, Respirations are non-labored, Breath sounds are equal. Cardiovascular: Normal rate, Regular rhythm, No murmur, Good pulses equal in all extremities. Impression and Plan Diagnosis Obesity (OIB67-XE E66.9). Plan: Continue to monitor. No changes made. Follow-up in 1 month. Discussed with her to continue monitoring her caloric intake. Encouraged continued activity.. Orders Orders Evaluation and Management: [id number] Office visit - established pt, Level 3 (Order): 03/15/2024 8:22 EDT, Qty: 1, Obesity. [Electronically Signed on: 03/15/2024 08:48 EDT] Roscoe Stout MD [Verified on: 03/15/2024 08:48 EDT] Roscoe Stout MD [facility] Coding Summaryon 03-13-2024 Coding Summary HTMLBase 64 PqpvmltnRRf6eYc+PGhlYWQ+ YK8KVGQiB29moMEwxE7tK8MA TElOSywgQVBQTElOSyIgbmFt AI0gvRHdQFGm IC8+AQ2pONMfBozdjTExf6S3 zNP8W67bbv6zTVacpZR6OXOh ItTcvwvis3aooYe5VBwwDpio OyBt BHBbxJ70SHL0bL47Dc58qRHy xYCqs8twjOq9ZiBjOZLfKPQ1 xIubSVeda4OvOOPxN38xkBYx c2U6 CGKutOsfrGRwNkLkbKD5oZ5r TRuzxkknm8kktwrcDuu0bq91 qENvf5J2wNO8T4JrhvP9FGPb bGQg CxekrBEKpH9ezgwui9zrtbbo XkVwBALcFWs1QVo9AIUqgUei ZuTzPA57PQG7MPJwwvWdW7Ne LWFs uCuoEdP4v9P5Zi9CI5XUYydg S4MBITYQNEuafZK+UT19lb80 G0AcOzbwHvo1EUAaYFJ7gDR3 aD0n PJGiVYzvq2I3rTF6O1LuzlQk td9mh4ceXRVjSRmmF77smJZk a0V9URNbbPK0IVUdsOgpSpQx aG93 Oyc+BTRadMrte7VgGhdnv7ua m8edlFb6XuqyGSSnxwVrlMmb PUW4n4MgLz0hNAUdjFE4qSM0 aD0i GaBgTkT4HZrwV348VfNitKBu YrkpC22xU4EklUQ+PHRyPjx0 UIBgePwmCK2rO1LqKDQpxgii bGVm xHsuMP0eBTJiioooDQLtvL5h YPBnQ5v1CoWgJpQ6DFexQ2Ah PGZmvajyIt58wR8fEiNcSoF5 MGlu Z6QtvtE3BQJpjXQdYZtmTOB5 T45hg6C6SAYkCPGkTPT6lQK9 pO5zvAlmptfwcEQczUxzxlRw dGlj ZBqeKBybA290BQZyyIvkJmBt ZGluZyBEYXRlOiAgMDUvMjAv MjAyNDwvdGQ+AEJgCHR5dUvn PSAn bAHeEAfnNp4frXppdFlkAR1y UIBwnblpNSYtjF4mEAIbqQCi tWasNO3cYMShbtczg934LaBy MHB0 XCKahWJtD4BieQ5gJcPlILNb KGCbS5DosSOlHFqdB743TGzp CrL5PGGbkcFaS1XhKHYbhEvz OiB0 w1H7Dw5Oe7CxhxdzU5CrwQTv BaKsScooSKn9J7QcNuiykMG+ VR98SEKmDO13RHp0EEI5rBwr PSdi UPHsM0PrhQ9wGcXcCEQaDOQi Oyc+PHRhYmxlIHdpZHRoPScx XFJfHtYjeOyhCM7fNw3iMKFk LWNv vDzxcZZfCqPtf8jvMHEvVOax WA3ziXifL1WumBB7KXEbk5p0 Hm62K19hU1JzwRU+PGNvbCB3 aWR0 mP4dDoHmRmS4XLklN853CuEt oQKlQutna2ijr0qzpQv8IsP5 VEMwppUnwXhzPFT9d5XnXa57 Y29s IHdpZHRoPSIxNSUiIHZhbGln qc8gtZ8jZi1+WEAojOR2vCK5 lJ7uNqHwRxO4DJggH664BwJy cCIv Gaqws9cgo0asxBs5VjCeAKAj wvPvdXgeVHZ7b7ZxGm13S8Qn pFepk9HoBlu7ai49jWAeh0A0 bGU9 N3NeTGNzhavpwIOvgEfnHP6h NDKvcduaFNOlzW2kQSQpE1h6 YtMaMpG8GAyiW9MmcvB9FYYp bGQg DCBlcSFHiD9ecqerj9kbvtdp HqPrGGPfFUd3WMs7UKFieUpq FpOqOGX3HaB4JPS1kMTonI0x bGln onjizE0aRyu+HHK9jNQjyQYI YY0aYracwST+VPDdGGS2cHhn SZfzXNXlhP5eBOUyY9h1NoPp LjA1 OLgvY1AenzA2UEDxnOSaJNOn cKOUeK4mgcrec5ahsshgPaOw RMMiTAv3UBz0JULxaNjvSbXy ZWZ0 UuF8CMH2xXZnxM2twWzoigtr vO1hTzq+FlvwbIkbOAE0HGo9 Z3QxAxb2GNCueDmwBF4zuOMa ZGlu Ia2msJcgnCdbAM0xAJXjbxfm i954RbNir5cfBRRlsHUsYRst PKH7P72fn6G8UCFsKUMoURW7 dGV4 nU8aeJpvjnfozZPjdTqbjzOc jGnoUHeePSzjT118PAZymBdy XkTsGSb4H6UsKfy5ULJzaHhp ZT0n wDXnVLkySi1ppJnwsIgrLW7w POPdoxckm876XuFdo1tlWYQu eJEbQWrnUPR5Z99ta3K1IUBf MDAw JKQ5wYK0kN8axSxboqmatITd bUvygqIxnVhwWZzdWWexO285 UDCrvRbtPqJxjBs3D1SwSdd3 ZCBz sTgeGE6fpMBfJHtyOz8vwBpb aOieYZ9kKLGouxhvk635XrHz n9tdVDIgtPJcQKocPKT6O36s b3I6 QSKeQJEjWEJ2oRG2rL6aqCsu bjogbGVmdDsgdmVydGljYWwt ANqvC955HCGujLqxPrUsyNlq bnQg ORyhCOo7I3VcIynseXQ+PC90 JSQmKI18sZRjfUXez0wrvJi4 EcBgJYJqLZJ5lTyjMBrvu8Mf ZXIt A98eoVMja3Y7KJIjkDhsuQMt EvZdaVZ8eS6pQAcbyfeqb0gl fojcPkwfl8yqtf84aI23E93q IHdp FFYdUXPcEHMzLNXalHddav9e tE0gAv2+LSEkyEA9qXZ0dD1o THEuAvM9KPojK097YoEsyGGw Pjxj e9vwu0tcjNy0UtT4MYUwoaDm nZrbYKY6i5MsKs05C69kNGsb NNKwZLLlEJTsWJMjmEmail5l dG9w Ii8+HXNpdYP2hMG8xC4uEeCg HcP9WQioG740TvQwxGXlHlbo J65mK4SkuOI+BMWkSkk7ASUh dHls HG5ujCQwLEpaEu3nIQQ3OgNx BdWfMOsnE5BvOVPmdhzuqcdm wAH5BIQvIGFnhG05Dj0drRfi MTBw cWIWzM9dnvmsh2ululmtOeLm SKEnSNa7LTo4ZOUthOmkUiFp QMH7RfH5YEX9wQGsjW2olPfb bjog gT3wC5VcQSSvftfeUv72aC2a NiAcAdZ2YVuaDhf+L2GDCpxj G30UFfuLXEFTFGrvqJE+PHRk IHN0 kWzdFAgwGMMauH8jASZcR1m4 GpMxHoR9STnbH2EpCAKguker Hl88fD4nUvYtReR0TZukZ4Rj bnQ6 VIFldHNoCReiUOS6O30je3Z1 YNPrMGZwFLT1zZR9zR9wvNhu bjogbGVmdDsgdmVydGljYWwt YWxp Q620CSKrmZhpAaL3MtA4SbE3 PyZ8O4QfDnx7FLWcrDwtMM1x vFToPBleDe8zlVwtwAbjEH1b NTBp focbWZMjnK7yYJQqcBBvdZel GK4jZXJtrqfcy943XoPbJDC9 BDCboZTkA8IczC3bQaJbTHZu MDAw P4AjcGLoBOzdZ814GOdbVmV3 VWOapzPaQ4AiKRNkhDisGdC7 g2M1Pe97VQQWDOFzpuxkaLQ+ PHRk GMC5xOmyKDxqOCGdzH1iZKHj W2u7BgIiWpG2BBzjM5JqKTWe kpqfYw29oZ0wPlDqXkM9FVcj O2Zv pjQ7FTOrsMCnLUamEQK7U58c f8H1RFQcIKFmCYJ7qNJ5aN3r bGlnbjogbGVmdDsgdmVydGlj YWwt XPioP190KNUexAvsJrINHJRL RTwvdGQ+TREqQLP5rBwjNQhu PQSzcE9tQPLgB3e5YsJpHjC9 MGlu Y4IpQGSiavneKe71bC1dFsGj XrU2WLdgP1EhufY5TQClyMXs USllPBU2E14pn4P4CPCrGRKi MDA7 mZG7uB3zjSjxhdftmWVltMxe uvWtcXjbOSyqATtdG129OTAj mKgdLe1DVE60FQ04R1HqGfgn dGFi bGU+PHRhYmxlIHdpZHRoPScx CZQkShKaqDiuKS4mRw3jKKXu GRGynYtgjKWuIxEub2ddZRAh ZTsg CN0ulRxoE3LvgZG2OMVnz8r1 Do76V42uJ1JrlED+PGNvbCB3 oYI6tR5fBlXeBbV5SBbiW957 InRv dRHiIugoy7qaf9bflRh9OxPv TPVdjdKilGvuTTE5u1VyTq79 O76vRTrcXUJbWQXoTRGzXCJg bGln or8wsW7pHh8+EEClhAR1qJQ9 aO6cWpCeOqJ5MSqgQ716IrWx tYUyJhgeF24qE9UqkWZ+PHRy Pjx0 UDHtcDruRB0diBJyQUdzJc3a IML3YeGfBqGyDSmcS5RsUJKi jkmdhlpqgOE9XPFgBBUbuK40 Zm9u yBvuIg7nRAOlYQT7QDQwlIRo I3NlbS5oMrMlLAZtECXzQ6Oe oFQpMRghB979DVhzZfL0HVBa cnRp P2SsFYFnzEkvZeL4m3E4Zn9F zGvxnDSdSB2pMcArLWg2L0La Duo3MMBkjSlsZO1liVNgNLor Zy1y hYqqbDosCI5sOXVfvpyde334 RaOnk7mjQJPdqJFoNKeuQRK5 P00zj1I6VNQhJZKqJDZ0sOT2 dC1h bGlnbjogbGVmdDsgdmVydGlj PAhyOEqaY674ESOkrGozHuCB Hqj2S0JmKwh8IUCkmDldEW6h cGFk AGldKi1wjVebcDlmCL9dSYAt fpeom180QlGlh7wlFPYyaHXh XFnxRRA8K60pe5U0LJRcIZBl MDA7 zGR8dU1uwEvtsuknkDHbgDey fzGneEqjXQooZJltH430EIEz kTmmBa5CFdp3R0QnLne7WXZc dHls GS1maBPkUKayYc8znRbdpJcc LT8bNHIlxoazh307QhDip6vz GZIhlDFtUNcpVFA6C47fc7Z2 ICMw XUAnCAO4qFY0pM4caVtculnu bGVmdDsgdmVydGljYWwtYWxp J065TTMnfNkgNsUadDNiAtya dGQ+ NA87xv90M7FjJfqwEmk2FKEf LJQ2aCM5rE4nENMbZYlve6D7 eGB9L0BaewFlyb2vy9noROXu ZTog Y29 (more content not included)... [facility] Wound Care Noteon 03-13-2024 Wound Care Note [id number]#[id number] FF [facility] Wound Care Noteon 03-06-2024 Wound Care Note [id number]#1.00OTGT IFF [facility] Coding Summaryon 03-04-2024 Coding Summary HTMLBase 64 AuhpivhfNGe2pRf+PGhlYWQ+ ZM2IOZXnQ67izMUozG7vA9OJ TElOSywgQVBQTElOSyIgbmFt SS7qaGCmUNQm IC8+RN2qMHIsMebyeLZrl4Q3 jGK9C48dnr1pEWgedYW1QWJf DgVwjswmt3zcwDc2YHmkNgiq OyBt WFXekH92TGN7eF55Pw42iJGh rVCdv2fziAn0SgOfNSRkNLA9 gSypRKuph6NkARQsG84lhGOl c2U6 RMKteHvzzMLuRxVkxFX8lV2l CMfmxsxnc1ctkxasUko3no86 cLLlg8C5zKB7Q2LlemH8QVQj bGQg LhhzlBOZiF8ckmiby5bbwvtc JbLsXRVnEXq9FHi6PEHrlXdg BlFlFL88LUD0KVRiejCrS1Tj LWFs eVkhEnT9k3M8No2SZ8YLQvoo X8UGUOYWMSohgNH+YB42cx52 C3JdTsidVyw5KXKfOUW0mEB6 aD0n NGVnOVwtg7G5lZX1M2RpseEj an6wy1oxJSIfYRsaR20kyTMd v6J5PLUmhEP4GMFhkUtxFdVo aG93 Oyc+EAAtwMutp6WfHpvea6ug o1yfhBz8ShuoHLKlcdZjfLqn BCX3d0IoFx4wFDBaiUN8nHK3 aD0i PeBwAyX2YUamM920CoBniGCy BopcF57rA4NmzAM+PHRyPjx0 RKWngGllAT3xE6KcMSIcpekp bGVm lYznVY5wCOHrhrekSQPltP0n WPUyL5i3UjDdTrX1EBlkV5Qx CIHhwgffVi52iZ0fChOhOiI7 MGlu C8ZljmD5JZAseGNhJBymHOV2 D80mu7Y2AAWlBJPeIQK6lDN0 kI7eqEesbrhbjPQxjVlvddMn dGlj CHioHFdmI208EHQuvJxaTvBt ZGluZyBEYXRlOiAgMDUvMTEv MjAyNDwvdGQ+EUPaAWX3oBvc PSAn yZUmCRfiGt5guCkwlLorRB6x TIQtdmkeZHNpdC4bYKEykEAt kZdxKI7kFKTsyitcn284CjCl MHB0 OZXshIBrB0JveI4dWvMnLDWj UXWvC3HxpNSwLXqoZ048ZJnh JmZ0MLRnatJwV8RiFADboMab OiB0 d7V1Rp9Nd6SxczgjV2YguQLv UmOaOvtyMQa8U3LwEpaxpJT+ WZ71QENoRU57MCe0SDJ6cDbe PSdi KMIkA1DleX3kDcXnPGVzAHMh Oyc+PHRhYmxlIHdpZHRoPScx XVFeYzPgfAknDI3yGj7dFLJq LWNv gXisfRLlMhZpd5yxZOImMAet DJ8ogAntY7XduXP2GSEju1c1 By24L36iM4YziHB+PGNvbCB3 aWR0 xH3mCmHyBfJ3ACfpU620UgEd dQLcUzlib0uai9vccRj0LaH6 FPCpnfCgrVgwVGQ7h8WbYw77 Y29s IHdpZHRoPSIxNSUiIHZhbGln kl2vtR5yRf3+IQAywUB9tZJ2 xP3rQyGwCeV6WIcyB262ViTj cCIv Obuiy9yah2wxfQn8UbPtCABs fbOazQleNKK7i8QgVi82T5Or hJpjp2CkSio1tu06cVZui4L7 bGU9 O1EnCGVuehwahTIecEiiQG3e OZAuztyhMHOucE9zRFYzU2w0 UzCqKzJ0QEraL4HqhzZ4CKTe bGQg WJCqdHFVlY6cqjpiw6fvbbqa VkWpGRXiPMz4FGa5NFEfmVav AwTiMII7TuF1WKD3zWUzpM4w bGln hwjsfD1aJuk+XTH3oXUhtROO NZ4zPlqpzHH+KBSyKYN4yEqh SBtfKLPxoM3kMNMbG7o1KoGc LjA1 AKwcR6YztdS8RWOczHYrEHDy oFWCiF3szmicx8meqwqoPdKu LPFvVSz3TFt7ETCdeQfrMbAd ZWZ0 AtC9KHL5mYCntF8qfCssqmhp aG3fTfu+MzyioRfvNJA6KSe2 T4LoJoa2MUVfhDgtXT1xrUNy ZGlu Og6mkDuleRfaNW0zROKimeer j441XuZjn7lhNGOcpUYgDYgn VNW8K87we4T6UWPeBSJyYGY1 dGV4 rH5rxBbdmaywjOYbkSrimcFc lPbjNUpnUZbeZ869HDTnjMpk CtKqTBf3F0JkUbq3ORCtsLur ZT0n aEPcYUuxHg2znSqqoIrqMH7l MHOheaccg341YsAyb4ttRTVu tPMdNQxbFPR4M13xx6J7RDHt MDAw KKX8oMI1eB1zjOvbmyqhhJAm sQgwhnQasOzqKTitHUmkU008 CMMtaZkkMgUjqKk0H0TsCnv8 ZCBz gEokNQ2uxQWwLAzvTb8meSlv cFisTC6kKZDnbnisq005IpAb w9fqQKClhYPoTFaySON0X29n b3I6 FCQdCJTcEYA3cEN1lR4cuJti bjogbGVmdDsgdmVydGljYWwt OVlmD693TKZdaKpsXxCtwEea bnQg NKumRAd0T0UmWeibrEI+PC90 DRLnWB88vXCdvJFua9rceXc8 JwTwCJKoWIW3gXvbMQmhv1Az ZXIt K34siAXty9Q9QRIqiEnnbBNm WjFgwLU7iP8rRVhmevcig7lp yblnZkuem6mdna11qE35T07c IHdp QKBwSWYmFGAnXYMtvCgyvc0v qI3pHk0+UAHweFJ4yMD5zM5w WXWjBrR2NVxlU336YuRzeTMo Pjxj r8aln8recDk6TpQ6VRAgnmTh gZwzQEA1s5GbTm73Y50sWByz WVDpHLYtFBYxSQJzuSafqg7x dG9w Ii8+IMPlxDK2lIN4cQ4mHeZu OgH6KObqW274QtWweFVtMgew D11oM6LekSK+CJGiHqg1SRXq dHls QH3fpGKnFRaqUy7tQNO5QcVz YmRwSMnrI3VnADWcocachtgw nUI0ZVMxCNPfzT75Jc0tjXqi MTBw rAYCpC8kfyeok4cbokkoUkMl HBGzNMj6IKa7VPXbhCtdWjTn FJV4PyD5TPV2mGZdkO1chZut bjog tV6oF6XaVRGmpsroSr55zA7m XeUnAwA6JFxbXjy+V8GIQmlw W27UXmpWUZHAPXcpbBK+PHRk IHN0 qQcyPHswYXHroB9hNVJzJ0u0 OuGvHoP0YFpoK5GaFJHnuwbs To47gY7tYmWcSgP9VFssU5Je bnQ6 KNAvhQJnJKoxFLT1I77ou9T8 HPTxLUXmSPA3hTB3rW1vkHfr bjogbGVmdDsgdmVydGljYWwt YWxp N109TJPlhJxfJyD0YtV3XrC7 ArN7J3BiCyl7YVFkhRnzQS4v gSFfQLniGs3rhTwdeBjfKQ3x NTBp wmnwSLNgeH8eCDZamWLkoNcj ZS9dEPDxnxayu666CkQpNIX2 RBVqjZWqD9YekH2hDoVlTEPu MDAw K3GlnCDsCAwyE715KObnSsC5 PCFaxzVwR7YlCYRipCidRrD8 a9B0Fa50NKVESKIubydyfDU+ PHRk ZLF2mNluUEwjQNMmtY3hGROc J8p0CvExVnE3HLysV6NdDWTa pwjwSn32mX4nHoUgRhI1VYqo O2Zv vwS3OCTmgIWlHTqnRPF5T84s b8P7AAQnUKHeVDO1xSY5gN5u bGlnbjogbGVmdDsgdmVydGlj YWwt EKksO251TOUswTyvJbOLRHGN RTwvdGQ+GHVfCXA1yLvoYRfa TUHnpW5bBYGtJ0v3NtOcTtR8 MGlu B0UyVEZzozeuKg33pP3lFaPg MlC9BNpcK8ObfeA7TNFmzAKk AZujNRV7P37gd0X3UMXzMULp MDA7 fHD7iG0xcTbylckvbKIkwXjg woYahCrcVBemZDiaO132GPHb nWxyIj9JWA37QU88N6HjRbhe dGFi bGU+PHRhYmxlIHdpZHRoPScx VZThCdXhuFyvZM2iTk6cWVUd SZKyiIohkBTdJeIkw5pzNZUm ZTsg PK5tpBelO2MmbCA3SIAxd9m6 Ao06Z48zZ4QylVC+PGNvbCB3 fJB8kH7yZcGpPyB3UUxxB202 InRv wFTgPnbja2hcq3pheTr1YnOm SLSnlsDctEwrHHV3q0ZeHl00 C25zIWwnWYSmOGVnRFYnEFXn bGln he5djQ7wCn0+EWHpgOE6zUO8 eM1qVoTnWaV0ORldO288MdGq oQPdVdzhO64xZ5SvfLL+PHRy Pjx0 XMCvcRmqAP7hsIOqGWvnSl0o PDO3CpZnEeZsVDezY0QdDRRl deipzfctmAG1RJIzGZDbfD98 Zm9u eItcMz0pPDLeDUX0CAKmtBDb X2ChqE9iFjRdVMJrQDHoZ7Yi pIAuQEcwU741EHjoMqJ1GUIc cnRp E4CbFQIvtAesSbI1j7B8Hj2A vVnejKLyHK7dPpQvVEw1K1Yp Oth6WLLbtNxvNJ6ixWInFKhw Zy1y cRhggPrqAT5kLUWhhvcpd999 HyRfr3kaQTEqyVYmVFoqXZM7 Q44wg3J4ZULuNUAwYSF3oUU9 dC1h bGlnbjogbGVmdDsgdmVydGlj DSluQMhxM814QRIhzYrmEpZQ Tmk9J1GbZok4IKNpkIpuDG7s cGFk CSyqCk2fcRzbzSgkRR4vCPVa rpwjt946XsBts4zxMKQxiXBz TAhmMTW3J95hu7S0ZPMsGNEw MDA7 tWP4tK1yyDzwnzzymFDnsHwz kaOqxKudYQzkJHvdG417LJOx vNouIe0MYvf5P9AkRbt2KORz dHls QC1lgZLvXFewYs4smPublSak KY6nAFToliren774YePpo2wu SGBaeNYzPUsmWOY5U87mu1E4 ICMw EQYtFVA5uLK5lF5chUcgibes bGVmdDsgdmVydGljYWwtYWxp P050WWOuePrvQbHdyGHsVzso dGQ+ TV06cm80R6LjZykoCcg4ZQAj AAC1cFS4qL6iICOwLIkyy4R9 iCE0I8OrrfFdhu3ou5owOKMr ZTog Y29 (more content not included)... [facility] Coding Summary HTMLBase 64 LwovdhsuAKb0aTb+PGhlYWQ+ ZK4HEUWqC41slZVgnM2mJ1HN TElOSywgQVBQTElOSyIgbmFt ZG4qbSByCAOr IC8+IP3kXVGdCebbnYXeu6N0 lTX4Z38yvh3xBPrcwWA6OXSe MhHovbfhy6jlxRg1PLjtUjhe OyBt LWKbtK84RNL4oN44Eo76bXTq uPEdl6ltdXk8PrEaJVZlNMP4 jGgjSEgnp8JnRLFvL93jkHOm c2U6 DIRhnSumbRGuIxJzeHN3sR8o VWogjewjf2jndkzyYue2gw43 sTXfq2V8gSS8Z1YrydS7OAJm bGQg StrmeALYvZ7efldnf5vrpaqa AnKiHTQiGGo6RMb4MUPnaLbu MvOzBV09SEU6SWFfioBkL0Er LWFs iMexPjU3k7S1Zn6VZ2NPImqm N0HYAEEKHFjolJF+MT59ko44 A4SxNzhrMam8OZPnSEB7bNM5 aD0n FGFuNNijq5Q4tUZ5L1ElykIe ul2kh0fkVKJiIPvrT90joUUu z4F5AAKirDA0WTVbfFlgJqDh aG93 Oyc+VQUzlBqic4NcJregm4wv n1uvvLp0RgfnUEIrylUxaRga OCC2e2TjWx5rWEOrfIS2gJA7 aD0i RfIgBvG5VHicH496BpRmgFJk LpurL84cL5BgnXU+PHRyPjx0 HOVklMvcIN9cS7YuMTQybktl bGVm mGoeYQ2iKDNzjroaOJNshG6e EKGoG5b6FiYxJqW5HRitS7Ed WGAcmgnkUu07wM9iLfVpIqK1 MGlu P7WtfsK4IEAhbNAkEJorZPG4 Z10sq4X6NOQzQWNgXJJ3jUT8 jJ7qhIedaoeawRCdcSxgqjEy dGlj VOtdEDpwI999EEDzsZxfKgYj ZGluZyBEYXRlOiAgMDUvMTEv MjAyNDwvdGQ+YYAjZOW1wOeh PSAn oZYeKSkyXz8fwLjelZcaWM9u JCZffqowKBFnnX6zMTZtpFYx dBncUZ9dSGHkynkfe364XtOp MHB0 ERExxJOrZ2FthA6aXkBlCQDm EERqA9JwbLAsKJyuR827HOrl XsJ0VJTkjsSqK2UqWFDsdKqu OiB0 x0J9Gi3Za7NrjdoqF3OpiYAy VcQmKedzTTb9V5DuEhrzhOB+ NU25JEAxGO91SCz5IQR6zArs PSdi DTRrN0OuxM8aXtRtLFFoVFWs Oyc+PHRhYmxlIHdpZHRoPScx TJOdGbVokEspXM3uBh5nFVYo LWNv jUzkkWJaYjKoi6ytPUPuDZkx EE4xqAxnW5DjpGW1BPCnx3w8 As50L04wO9TwfMG+PGNvbCB3 aWR0 cJ9sUsIrEqL7FArkZ922PlPt jBIoPdwdl5jif8ptlVk6HpS8 IHHlloMiwNrqGGQ5j0XsQy56 Y29s IHdpZHRoPSIxNSUiIHZhbGln ky0fcI7zGk0+AFLyoOF3pLH3 kD5uCjIdCxH8YMtiN212NvBt cCIv Hsxbm8zdi8uodUh8YcJlTASp qtYypDjpGIY6z5ErKw42Q6Xs rGnrp8QfEzs7az34kYSkn4F7 bGU9 L9MsUAYtbvknyEJvsKnwZY9j EPNqurtqXGUlyV6xGYZoP7z6 KmFyXlW2YJhnP3ZzeqO1ISDs bGQg QTSlvGZJbD3yvgghm9khckog LxBqUBAqCPj9LCx6EWDxyLrz LmLuSPX7DeO2CLI2aPJmdI9y bGln lcdypG3lReh+LGS8uSZffYOD OM4jZwkquAU+BHGvVLC2nNib NNnyZKFszA0kGAMaV9o7XmUv LjA1 SSfrM6PxnhY9WCPmkSQsQIRg yGKWuW7aytbds4qhoggvFuTk FCBfKNo4HCk4PLZqbNqtGmEf ZWZ0 XzK5FSQ6gUEypI0slGwipquc sI0sVbt+YdeiuKhaIOC4AJo9 L9SjZox9XLCtpXrwMT6mvJOf ZGlu Av5wyMnzlWdnYC6sCQBwjytf r285SzVgn8tkUBKzwZPeSHvg YLB9C09wc2J2ANVdFVGiCQA1 dGV4 hO3nsIbqezkutDWeaEwtwtDc iTogJAbpHAdoX244ZHBsmGdh BsSuAOe0T9BlDtk6OQHkmHlu ZT0n qIHkSToiGn7ifZbyuWtbUC2x PLBexhqxz755RzCqz6uzQMFq oNRmGTxsTWR8B55ar7Q6FUDd MDAw CLE6jEV5kA7cuUtuodaxnDHp xRtndcOpiRgnBVmvXEhdY321 KTRpsYggBbItkCb4I4YgDzz1 ZCBz zMtjCI7fcVSoHHvdTe6coBmh cPysIU4tAKStawvfl413MsBe q0jjYEQhwRHaBWrnTVY6B54s b3I6 JPSdLADeJMP5mUY0cI6xnMhs bjogbGVmdDsgdmVydGljYWwt VVcoH469TQXsvOwyKzQtrQby bnQg AVfhBIm4C8AyKxjmjBB+PC90 PDLwZT38wLTklBPtg6msuIn9 RrObMFZrJKD7jHqjUQbuh0Wj ZXIt J96cdVBcf3Q9DTVztMwpnEUw HgKgvDA6fC8oIWaiovtmv9xb paomCkjgt4bepu37tM50V01h IHdp ROGaQCNtJTJvCYAfbGvgbf2q pF9pRm2+VTYylLD9zZG8pT4m HNKwBoX0BIgmU591XyKzpVRs Pjxj l5obi3lwfNt7KqG7ZATbwxGl rNvfZXO3m2IiNb18Y91sDOrv HBJiYYOvURDfCDPgtIstww8v dG9w Ii8+HIMosLF8gOE2qK2yQjXv FuC2EMwwU226ZwMiaRFnZfkj H04pB9MovJQ+GPPiCnq8NRXb dHls XN6zjQOhEBtuSf3zOHP2WcTp PaKdVPuyV6NfUACvenamlpbf sPP8MNOuJRPafW04Wb5ccJpx MTBw fGKMeC0dbyhro8mtumemWfTy JWTkEXk9GCx9YCWuqOpsFwAo RBD0WuM1JAB2iTAkvT7buQxm bjog cC9oZ7AsUDDkrhdsFc32gR7j ZlRiWiB8UDakFxt+Z9SINudh J13LWlyTXIJADJluvDD+PHRk IHN0 wZkwVGbgLWBocM1iMRGkN8d3 UnQbAgG4UNuoB2MfRTHpcfaa Af34gY7vDkUmEpD9JZynC3Oo bnQ6 LBAldEKaVCijBVG5M86pc1N6 LSKvWVKtWZZ7iUT4qK1ogTig bjogbGVmdDsgdmVydGljYWwt YWxp K265BKKkbCyjVhN1NzU2NdO6 YzN9G9KmPfo6MKLjuKznEF5x qMQoWMolKx4ddDdjyJrbOM3i NTBp qvwwKGGpeR2rIVRouULvvDsr EN0bZKSwcetyx032NkQvGKE8 WFAsiFXjN1ZylL5vDvGvTQPh MDAw W3LjhDBbXLqtN791ENepDyL2 YNEjlyInL8CbZIYbgEvmLdC4 h2G1Br84DTISUIBuvwszlNF+ PHRk BJZ6jHznTJcdSNChkL0xTVWl F7v8JgWuYhN5QHitE4RlAQEp unppVa00hT3qFcZqCrH9FGxu O2Zv xfX4ISClrNGeMYowUYA8S40m i2N3NXIqOEDqYYY6aLH7jE2q bGlnbjogbGVmdDsgdmVydGlj YWwt KHepC207XMPrnAtfNeENLTHH RTwvdGQ+YSPbBNY1bCqvAAul WGJatH9cTDKvD1l7NpQyRxN5 MGlu I1WbGTJsimsmBv21gD6lMcSd GfU6REuhM2UkckY2OAHcoKSw WPenDJV5Q30zy1B6ZXNtTXUm MDA7 bSI7nI2unHwfgtrxoMPojGrh tuXeuRvySYayRTlfW873MCWj mVvxRt4FFE84ML32I4EeJlvf dGFi bGU+PHRhYmxlIHdpZHRoPScx AWLbWnRqwPvaOI0iMo4gAWWv OAViqKqvjPRbEsOjh0qjFOYf ZTsg GQ0bsNcdZ9FkjOQ8ILTfu0l7 De66L90hW9TydXJ+PGNvbCB3 uMY6cN7oKsLePzR5NQxfQ258 InRv hSLaWrurr9lad7oyiOi0QxMw TZJtbwUgyCegOVP1c4BfXx70 O26kGNquSDWuOVPxGOKdRUUi bGln gc4uzM6sAd1+AMFabRB8oVM6 iH9tZkVkYiO7FFtiW524GgUw aKFyNhdxV73zV1ZfhVM+PHRy Pjx0 BOOyhEkbCY8xdBNmYQaoAe2g EWM6AlFuXnOzWEcrL2BhYFZi zhiogctckMK3CHRiETQroO11 Zm9u iComCo2zPWYoRLN9UPUsyWLi W9WujB0yBcWvOPQgTPZpB1Lp xHBdYLrnC315FZgpDcZ9IRPq cnRp U9PsWRFxtElfJxM0y1O7Sp7W vZosmGTyNZ4zFtLgNWs3Q8Kz Asc7NHMmtVkhWP7riRFaZOkv Zy1y fFslcMsnXI2yZYAhdyozq030 ZmCnw7onPLXxxFLpPHreSCF3 F96aq2Y8RGQkLKFxSWV3kJQ0 dC1h bGlnbjogbGVmdDsgdmVydGlj IApyCOcwY851OEEdpUtjRwNI Iub9L4ZrTzf8UKMqlRsgVL3z cGFk WRouOc0znIlkcIuxLL7tVZUd itpan548DxAka1uhBFIdqRZz LLxxABI0L16hi3W1GVQmUQNn MDA7 yJV7bH1fnWwxpipuvFDnoCtg iqUwhIxvOOalMLnaU104JZBd cAddPy0FBcs5D0SlNit6ZNCl dHls SV9asJTgFTjuVn8kqRckoLdt FZ2pXIHvivhvx007SfWoy2xn EVTgfGAqBSjcDUF0A54yk4U5 ICMw AQHxCOB0vGN8gL6wsMefdzip bGVmdDsgdmVydGljYWwtYWxp D213BWUkqTowWiFjoRTeEnyw dGQ+ XR20bj40Z6MeFhjsYcm2JRLb XAH1bON3gQ4ePBNjPWiuk3Z2 nCE7E1BifoKrmi0bg9hwGUCn ZTog Y29 (more content not included)... [facility] Coding Summary HTMLBase 64 HojofkxxVTw2wMb+PGhlYWQ+ DO3PLHPlP46bdDJueV4gK0UU TElOSywgQVBQTElOSyIgbmFt SW9weBOdJZJw IC8+NJ3nRPFpWhknkKCep3J9 dCD3H61fsp9sJDtehTQ6SVCs GxNkihbll5yiuJd4TZroDjzo OyBt LWGvvB53KKL6xM74Ho58oFWb oHBzd8edvQl5NdXeKNEfGXX5 gObzCIylu5VyJDRwZ47kwSKh c2U6 IUBwtBwixCFwNoEroJH0nE3d GXvndgjtv8ovszsbDeq4jp28 nHIxm8Q3kBY0S0KunmJ9ODRb bGQg SzcpyHASdT5tcwhsf7fjdits QpVdKOUvEEx4MBe6PERgkGxx HcCbMT92DWT7IFWznnIyY5Gx LWFs vCbtXuZ0l4F0Mb0QE2ZRFwua S7NTYVHMBJshzVL+VY75gn00 G1RjOwooUba5VFBzDFB0aML7 aD0n ZHJrSIjkp7A6yZU1W8EuoyPd to6js0feULZcBKzoQ66uqDBf o7A3UCIkgUW8LOQihLiqNjZz aG93 Oyc+YXHyfKnyn8VaBfvpi9iw f4otpYh0UpnyIGDijpRshDug TOG6w0GiNz0fNKPizGQ8xPR1 aD0i ZuRsAjY0IMdnE202ZdZpgYKi JypvJ60vA0QfgSY+PHRyPjx0 CXXjwPdcDC5uB1UjASCiqtyq bGVm bCqlWY9tVYMazgkvZSXmtM9w WGJeK2q4SrEwNhX4GGimO5Dj VYQwdtiiQd80cP9gLuUeVsT9 MGlu D9CkhxX1VMNlpSJyHCylDJD2 X80qf2Z8SZByYRWqCSZ5bOL6 oQ5znLwiqloauTWcuLqexfCd dGlj RDopUOigM719DHSvdLbmZkOe ZGluZyBEYXRlOiAgMDUvMTEv MjAyNDwvdGQ+VFHeONP3rVwa PSAn vFCmECpsHu5tkAugnNqpQK2q SGScrvreQYQeiT9bVZWlzLAf fZwzGB3qNOTtgqgrp664YyDn MHB0 QYAcgIRcO7ZssH3rUfCqGWNb CQTwN6SidJPbFNfgJ665JHom DiN1BCTyizPkD6TbBRJdmWrf OiB0 c8F3Xp6Fc1PjygmpJ3VqxOTm HeXnEmhsZJi1M3PhYrygjOG+ YY09SFMyJN73YGi9DWG4iSjn PSdi NSLxO5MqhB3bKbDoSUIwYKKe Oyc+PHRhYmxlIHdpZHRoPScx KTBdFyFuhCspQA8jOw9bNSCm LWNv xPkaqWUwQhCzq4itJLCzOBqs QL8owAwjS1QquGU4IEHul2j8 Ri59A09kQ5LbiEI+PGNvbCB3 aWR0 xV8gAuAcEeW5EBlsU624RfEf iLRoApysj7zvt9hhzCx4UyU0 JCWhhhOvaEsmPMC8k9GlIn67 Y29s IHdpZHRoPSIxNSUiIHZhbGln uv5oyK1rPz5+UANkuHP1rVB9 gE6zCjFuEoP9RAwsS008HgJo cCIv Bgzde5fer9irrQp7WcWrAOPw cvVivLbjBRR7i8PlBs22Z2Tp cWwjn9DtDbj0sz71sOEhr4G5 bGU9 S7UtGFIxwxqxqSAxfGemKZ9b WGFkflegUTDuvM8pJRUlE7r5 EkUyHmX5BChoW3NfseH4QIZa bGQg KGJesVXSbL0ttddaz7vdzcpw LqKmFYXaGTt3PIk5OKUpsJsz WdWkCBI6WdQ8SXM2hVSzkF3b bGln eimvzI3zFsq+PAF3hLOznUVN VM6bJyaxgJP+NEFmJEX7mMnr BCbmWTNjkO4tDVJcL0k7GaIv LjA1 DVytQ8VjupZ0TJBwcUFyQGOf qAQBpO3lnmxgm9lphcffOcEt VAXkTFe8UPp4SZJjkIkjEmDk ZWZ0 CyB5YZY1pSWkaD3pjYvrdres eS2oEym+FhggcNrxBBQ7TWm5 U1HfOxt5ECJryJolRN2fzZMj ZGlu Bc9ckIytsHcmIU1pPPHfrayu h373CaPce9jcBKPmlKGqVUis TKR2R39ea3E3CMNpVDTfYCM4 dGV4 hF3luSdhwetckFLqjZtiutJd zIntYQvcNTmvF960DREvoIik WvKhGIl1W9BeUjp5PNDzkWwh ZT0n gDYkSOtqBo3vsPwjfUmsXO3a MWIwkyezw772BnLpi7jgJNUd hWGtTZgvKQL5S73qo4H8PWTx MDAw ZAJ8hQP1mW4suMkemfaysLDx pAtbqyQfqPiyFBtcAKskK723 JIAnqYlyWsAovDm8Y3MdSfv5 ZCBz ePxzHE3bjFVuDJluPv2ilDcv tCpoKA4iVIEovxhdn876UcDe e0pmEVIpjCVvQJveVXZ1S14p b3I6 AGAcFBGbDJM0fWH3uD0zmVcl bjogbGVmdDsgdmVydGljYWwt EHatL699EBNagAvcCfMqgAwo bnQg UVxpMVe8L4PfKyjepQO+PC90 EGSlHF85yGTbyOBqd2szcKd6 OfWmIHGkOFK2pHjzLWyrc4Ra ZXIt D49nrKSwk7L4SVHpqWlzrVUc TkBixKN4jP2uVRztjncyd3zv jpuvIpocg1rnyp47hT27V03q IHdp XDRhNCNfGLJoPKTooNcuyi6r kT6cPf5+JFRxpPW0qFR3jO1l EGCrDmB1DBiqS835GwSxeVBs Pjxj e1hiy6qkmRb1OpD2FJUbxuEb qEpmFAL6y6KlFb44E63vUNnw NPPwFJZiCIWmZMVjyNwwzh3p dG9w Ii8+WMOveTF2bZW4lE9uQjOj WdL4HLakZ276XxPbnGMjJbcs R70aA0HlaVZ+AWKxHtk9FHOx dHls DT1djVLwNVnyYk3sXBU5WrMu PpScIVunC8AiFVEhbbvlplbm nOP6UVDcUGEmwU07Ln9ovAor MTBw cMCKqI7brreom2seehuyQrOr OUHvCLc3DIv7ERKbxLgqTlVb IQG8TpS8YBR8cNMrcJ8rlGxe bjog dP7lG6SdAPXynvesEv24cX4s YfJoWpI6OTrmYph+X7LSXzdh P39HMwsLPNHYXJpuuGY+PHRk IHN0 vMyhWYxpNPXdyS3xZLUbP2i9 EpHuSwL8RSndO8JgCBMgfpsa Ct77oJ5dYbJeIjA4XSzpW3En bnQ6 JNCqiPLdELwyYXL3T55rt4J0 FGZlFJTpULB4jWU7iA9rjOju bjogbGVmdDsgdmVydGljYWwt YWxp Q049VOUojPllJoU0WnI3RiR1 XuO6K1WoSxp9WDRnfSxnTE1c vFVvZHloWh0viAgldGoiRY2a NTBp xsrqGBSvxS3wWCBrgXHahEtt TV7nCVZqphowo177YnYxZLN1 AGUsiYLaO1GuyL5nFbAdLCUl MDAw D2KxrZWgZMygN081LQqxQzY7 XEIqxnFgN6PnQLHtrUsmAfF2 q1R2Db81LMSXRCIaapfloNV+ PHRk TPE7rKvkICwjJVKixL0fFBNd B5d2AwMpAzN4UJntD2PvKPOr hyuqYs52hJ2sMlSxBiE8XTpa O2Zv cxQ7SHSvjYSsXSuyDCD2Q07s f6D0FXWxAPYrNIZ6oHD6rG9i bGlnbjogbGVmdDsgdmVydGlj YWwt VVidF286IIMnmRtcHdKZTUHS RTwvdGQ+OIGtJMG6cEunVWfj UQYuwT4vXITpG0v1CiZjHeJ3 MGlu P2TsDIAhtpsoHi03cL4nMrNr MiX1XQduB3EwbzU8SGGcyFVk HBzsLHK7A74ks1F2UYOeDLOd MDA7 kEC1dY0nsKbvtxhtyKMcvKfj veJohDegROeuDSogC705BMOj iZezOp2EIK19DV49G3GvZoha dGFi bGU+PHRhYmxlIHdpZHRoPScx KSWwIuGcmWnwOS4iRo1jKNHp BTFcpHbkgMDeQnYpw1qfGCPj ZTsg KG1hhXysH7YeuCQ4CVRfp6e9 Cj10Z15dH8VusCP+PGNvbCB3 kEN7vH4mWcCuKiQ7WKhsN548 InRv yWYaLbnbp6flw4tutVm0TfYg QVLbvtHglBzgIDI2i2CnKk51 M10xJEhsXPNmBCLwTTSyJVVw bGln fo5dvD7mOz2+AGQrmVR3fKA8 wY5aPkVkXhL3ELkiM044YbIb rVZbVepwJ51vY5DnoBD+PHRy Pjx0 BVNcrPkeNB9jiPUeCScvWd5u WMF5PoEwYuLjBZnkV4GcJWNn dljmmdxcoMP7VYAwXQTsfV66 Zm9u qBucQg1zWGXdFPI6UQBduHLx I2AgsR7lZkBoFHPmZAOuM6Dd tMMeKGdaY125DHdpPrU1MNTw cnRp A3IvAFBcmXepAfR1b9Y8Vd3Q cLjpcRVsNN3yRrUkCTx4U4Kn Lcu6GCPirVyyOT7eyOCoNIsd Zy1y hCctcRwcET6lJNGzeltwd452 JeOev7nvPISffVUuVLesQIX1 S12kh8A1FYTqYAHjVWM5kWB8 dC1h bGlnbjogbGVmdDsgdmVydGlj IGxrYUpdZ356MTPwpBjcHyWR Iur6Z4YrLbz7IUTkeUdnZZ7r cGFk BVycKs6euKbnbCdtCU6zBJHf ailsb404YaRar4gjVQMoaUIy VWojURZ9N33qk2F8FBTxHFKq MDA7 nTT7cW2kfNdpzfpamPZevTrr ukPsjGvqSJgyRJriL564ANAm jIsbAh7XMxi4L8KzTsq1MAZb dHls SA5liLAtBAeeEn4tnHowqIkn XD3wGPWqiiejr475UhDgb2mw WCPyxZUgKUmnTQG7J81rn1V9 ICMw HAPmTIN8gWP8zV9teOdthdwx bGVmdDsgdmVydGljYWwtYWxp M908BZSeqPqxQeGplBSuQemx dGQ+ UV53ed62X3MkCxhzGno3IMEk BRK6ySM4cX4dXTJlJBkmn4F1 vFV0Y0ZjiiDgjd8hd4hwBBOs ZTog Y29 (more content not included)... [facility] Coding Summaryon 03-03-2024 Coding Summary HTMLBase 64 BhpycejrLGg8wVc+PGhlYWQ+ LD0BBSAmK18vlLTqrS9bP3JW TElOSywgQVBQTElOSyIgbmFt IG7dlHEgIZPa IC8+FG3iJTOzVpfawHRcz4U0 pPU8S31lgq2oOJmzeUP7QJWj HuHypthlx2mfwLg8MCsoJuee OyBt MCEfeJ98RDB0hO05Fw01tHMm eJVwq0rcdAr1KyRrZKFeIRJ0 kRfoRKfpy4XiPHQxV29lvQBz c2U6 LXKgkRwouWZxKbVwnOJ5iS5o GOamovtqn6isikxwUaw4lb83 oXTff4X2zCX0O2PdwsT3IQLd bGQg GagmyVGAqL1iaotmf5gpshxw MdOhHQOlAKu1CNv8UIQdtEyw AdCdLY98EYM7VPElkpYrH1Zn LWFs nFjiQsU4d6K7Ze5WJ5ZUElhh M3IZTKFZFHkyhPH+GK44ud27 T1BfMkoxXhn4TTAgWCL9oKW7 aD0n GWLbYEhkz4J8vHS5L3LmbuCo qf2no0usCFZbTXcbA21yzKWt v1G1CLYqtSC3KMAwjQhrUgBj aG93 Oyc+AQZifCvzl5GdNoesf0he x9mftEy9FggqHUNawmWczMwg LTN4i7VqMf8oZPYstAN2cYT6 aD0i LoWvXzO2GKdvZ197IqEjmCXx QyffM03jV2ElcXC+PHRyPjx0 MDRjdVvtFJ5tH4UyNAPfcfia bGVm oAggYQ6gIWLnnqztWNYerF0e EPDdD1d2FzSaRlX3TDqqL5Sy PIWlflrcTd71hX4wBcRdTjL8 MGlu D4LcgwK3MLDgyPAlYJgoSMW4 Q76iv2L1ZLBqFSTxOKZ2jME5 gV3ztUvxsnwlaCFmnKoocbFu dGlj IEqeDOxaQ144OYQxdPloYpQk ZGluZyBEYXRlOiAgMDUvMTAv MjAyNDwvdGQ+KCAsYSO7yObr PSAn aGZxNOcrXv4tiChtlZkrRF4c IEDzkrjaGTZzgD6wEFSflEJf wWynEZ2tAXQhlbdtm392LfNo MHB0 LXDvkNOaK9LxlL5kPgYtDZWf WSInQ9YboMRbGAuxC466WMvu ZyD7SPCxucHjL5ZdYEZhoWap OiB0 h5K3Rj8Ez3WpuajnN9LlrXFd WqClAxfgLZz8J1NrRxzswDQ+ SF35EUPaEB94XHz1ZFU4gTpu PSdi RHBwC3KmjP8zPnGcJVHhJYKm Oyc+PHRhYmxlIHdpZHRoPScx EYQwJyPhhYwfPU1aDg6gSAXq LWNv pLgbuRBrReMbb9saSKQoUGnx BS5wfKyjO4QjlAK0TGLjm4o9 Hu68P85vS6PmsIV+PGNvbCB3 aWR0 tG1gDnJxYyJ8CDnwE667RuOl ySEiEzntr4qef3ggyFc2JyA5 IAExbwNykSceLZR6n2NmJq65 Y29s IHdpZHRoPSIxNSUiIHZhbGln oz7iyG3oCh2+VGCbeYM8cPH7 lI3zGeQxUgG7JZudT177AgPs cCIv Lgxml5izh6edvUx8FgWyGKLq mgQncAkoEIN3t6UjEu39O3Dj jGzhm2TzZul9xh63qPQnz7W8 bGU9 W9AqXMTuyraotFXxrQrvPL3g KBXbyutgINEpyN0wQTWpI9s3 EzVsLsO5RGkjP8XuztG8UQZu bGQg CJWvsOZXvL3iakymq1psbbmt ZxPjOKCcNCe9PHv3GZKovNcs LjHvJXD7FaF6ZBL8sCSkuH1t bGln jzvpiK7zEcu+YYX1zSLacUNU QW6lCabwxVA+VZArELP8vDzf AUvzXBPncM2hSYMqW7f8ZiZb LjA1 IAmzF7PexqB4IETvtISaKCOl vKEToK1quspqo4lczhmeTsPf JXTjAXj7UXs7UHZiwGhrPjNq ZWZ0 UaX8SOD3oIJytK5geDurbfjd zX0qZjc+IgssiZnuFME8YYu4 G6BmThw7BWLxaBdrAJ7tmVOn ZGlu Bn7axQlkfPudBE9jMSWffqvo j672UyFsj1fiDMAhgVZnXUty YUY1E87rk6F4FGFyCPRhNGT9 dGV4 sD4bmNadmshhcQDipOwqdxAw aPbqBHfrWYozU040RWQeoHwy RwKbWKf2U6ZhVih6TOKgmZzh ZT0n kOHsNHumEy5jgPldwAteGN2l PMFiukych767KcZbh1tjBWYq jIYkCRzpDVS8A37jt7K9PLLd MDAw KHF9wBJ7oT2ejUnirsmqfZAd jRhqueMxqDmgJJzsJLkeT094 SRDjyUhpYgHiwTs4Z6LjFiq0 ZCBz gGanUV5yzUBdZCpfTe2ceZlg aMbsEB4vKBKharwtt926MaPi y2irOKTtjACzBUexNUR5B23f b3I6 EQQqAMOzXPD0eMJ7xR0wwJev bjogbGVmdDsgdmVydGljYWwt TBsjJ336ZQYrgMpcKhAtuIvz bnQg NBtaWWk7G4BhYwzqvIV+PC90 VJOlZU64iBKwuJEau1xqtXc2 OePwIEVhQTZ1jGebXUubw7Kt ZXIt P31oxCBpi1Q5ZXRngCgdtKAy XrSyqNC3xL0aPDlhyxmhg5vr vqsiClnow7ated32bH18V78x IHdp GTTxLSJtRKWwGQPujOpccy1l zK6zDy1+RLRrrWB0eMR3wF2d JQFlDqQ3PZmfE142SeYjlBCo Pjxj v1aiz7fyiSc7LmJ8SGJjtlTo bFkxLOP6j6NiDv85R09pOVcd HQTnERSwNQJkROLxhEaool5d dG9w Ii8+ARClbDF2jUZ7nM9mLiOr WxQ4JUurJ370VcDqnARaGfft R76xY0LtzXI+KBQaQwz8XUUo dHls OV2rzHArMOmzWx2gVNA6DtFd TcRoYRvdB6UoWRRzihwngwja jXC4KMJmZWFdbA87Gr0crQds MTBw yAQHoB5xjvmkw3oxnexfAzCv OKKySIa3XAg5BLJpvCuvVkAi GOR6BcY1CLQ0yVIpnZ1aqSri bjog fA2vY6AcTMHiydsmAs53hH0y SsFeWvS3ZIyoYbc+R9ZJPscy Y75UQocYJMRENVlwbEU+PHRk IHN0 sSvfUZizWZYvkL2aBGSyD3a1 RgGuXzZ8QXceZ0FfSRUciuss Ke61mU3fYbSeDmW7MEfnG7Ig bnQ6 KPYzrHSwDXghIKW0L89tf1D5 IJOjVCIoXSA9kSG5cJ1cfGcs bjogbGVmdDsgdmVydGljYWwt YWxp O046IARorKisQzM2JnQ3ZeC4 LcH6S6TfCbo3KNHfyYspVO4f yTUwWHfhYl4ilVxxlVcpBN7a NTBp zbeoOAUegI8xWESsfYYmyPbn UP0bEJIkpctsv437MpQlGQO1 BANpdYGeS2XedS6nTtXlKISh MDAw W3SraAPoJFbdO864ZFzoWsN6 RGFwyuCxC6YyJLGuxXhkBxU1 g8F6Qi78UIQKPHUfamuycPU+ PHRk QSF5eRozNHdfEKAnwD6dZSKi Z5u0MjJvOfR8XZddU6OkGXQo yrdxWj40xH2yGnHbMlW7TZxs O2Zv fxN8VPLmfBDyYHeaZSC3K64q c6T9FTYkWWHxWMP6aUQ3wH6c bGlnbjogbGVmdDsgdmVydGlj YWwt FJsiS083RSAriJbcJxITIPSF RTwvdGQ+HAMkCHU3rSzsDKnp KOJmeB8mCHOrA5y8CmIrBdC1 MGlu E8AqDFTsonfkOp10uC2bJmHf NpU8PFiqG2IqrhF9AQSnfHUa NSdcWIT0E70da2V9UASgDPDs MDA7 yBF2yD6ofLmdsctqmDPftEaz jhHllYabAPayMUouK884WEPa uZyjUi9CGV33OX26L9IoTqzb dGFi bGU+PHRhYmxlIHdpZHRoPScx YHRfVuGufReqOO8gTb9fBEPf WUXwxQhbwMUpEmSew6pqUFNa ZTsg UC4mvCyrK8FwjPP0IYFpc7t8 Cu13X37oN7JukKH+PGNvbCB3 iXR1tC6mWiMiNcA9WGieX660 InRv zYVoYwpdi9gnc1ddzZb2YkGf VNXbgkGpgMkuKJI2w5XaKd99 F98iVIieHHPmDSDgFGDcTYAz bGln pw3jhA8eQn1+ORRveHE0gZD2 lS1qUxSxCiF7MKbbW459EbNl gARwZqaeX94zF2XumHQ+PHRy Pjx0 NOSpiSqdGN3aqCFaFGhuPv8r CCD6JjKaIzKjXXxeP5HbWCVd gvnwrwnowSX8QRGoJHRaiC50 Zm9u sXtfMh8hPBSqRCE7UMLsgRTn Z8WneI7lEqZrNXGxRKWbB4Mo rTWmTYncB720HRccSlU1ADLu cnRp R8FwYWHjgLsqBiU2c5K7Vk4P oMlptVBqGY1mEuIpPUs8O4Qm Mdq6AASekYgsUA7oxGRqHPev Zy1y oFdutArnSP3bAOCctmtyp171 QkXob8ymHDVdcJWxBXshLOG1 A11xc2L4OVPnKBAjQHG2vPQ7 dC1h bGlnbjogbGVmdDsgdmVydGlj KUopIYffX208OQRuwBsuLdEL Fdi9I1ZoRef9VEFrtXafTO9h cGFk MCasEd2rqBagoPscTE7hWMSl ildbe459AiGzf8jfQOClsPYj MFtnNAE4H43wz8T1PENqWHXd MDA7 xNX5fG2dnKsragcoaEUwfTze etJfnSrcSZokFZgjD993BJYz xFgbSn7CWiz6Q8UuXqn9KVKl [facility] LA8wbGPqYXyaKa3qtBfkzPpx TV3tTVBvynsaq745XnIud8ee YJAutMAbLFraMZN6M70jt6P5 ICMw TYTvIDE9uAC8gX9nhXqgpogx bGVmdDsgdmVydGljYWwtYWxp V681XBGmuOolWoJmeXKrNjdh dGQ+ UG57zb32G0GgKjvxTds4KUKa YHB5cHJ0iN5aBMExSPlpd2I6 jDY7Q1BifeHroj4kx8tmJVEf ZTog Y29 (more content not included)... [facility] Consent Formson 03-01-2024 Consent Forms [id number]#1.00OTGTI FF [facility] Wound Care Noteon 02-28-2024 Wound Care Note [id number]#1.00OTGTI FF [facility] Wound Cultureon 02-23-2024 Wound Culture left lower leg, , 02-21-24, 14:30 Scant growth of Staphylococcus aureus No organisms seen. ORGANISM SA - SUSCEPTIBILITY ORGANISM ID: 1 ANTIBIOTIC INTERPRETATION OMID STATUS ORGANISM SASA Amox/Cla S <=4/2 Verified Amp Wiley >8 Verified Amp/Sul S <=8/4 Verified Ceftri S <=8 Verified Cipro S <=1 Verified Clinda S <=0.5 Verified Eryth S <=0.5 Verified Gent S <=4 Verified Levo S <=1 Verified Linez S 2 Verified Nitro <=32 Verified Ox S <=0.25 Verified Pen Wiley >8 Verified Rif S <=1 Verified Tetra S <=4 Verified Tri/Sulf S <=0.5/9.5 Verified Vanc S 1 Verified Normal [facility] Comment on above: Performed By: #### [id number] ####[facility] (DEFAULT)[id number] [place] [address] Office/Clinic Noteon 024 Office/Clinic Note Patient: SOFIA MIGUEL MRN: [id number] Age: 48 years Sex: FEMALE : 1975 Associated Diagnoses: Obesity; Dog bite of calf Author: Roscoe Stout MD A History of Present Illness 48-year-old female here for 1 month follow-up of being on Adipex for obesity. She has lost another 6 pounds. She is tolerating medication well. Denies any side effects. She is also attempting to watch her diet and be more active. She is pleased with her weight loss since starting the medication. She is due for refill. Will continue to monitor. Patient also continues to have a wound on her left leg related to a dog bite. She states it was healing up and looking a lot better but since she is on her feet throughout the day her jeans rub against it and opened it back up. She had been treated with antibiotics from the initial bite 6 weeks ago. It is nonpurulent. More serous drainage. She keeps it open at night. Review of Systems Constitutional: Negative. Respiratory: Negative. Cardiovascular: Negative. Integumentary: Negative except as documented in history of present illness. Health Status Allergies: Allergic Reactions (Selected) Severity Not Documented Acetaminophen-oxyCODONE- No reactions were documented. Bactrim- Rash. Cefaclor- No reactions were documented. Septra- No reactions were documented. Sulfa drug- No reactions were documented., Allergies (5) Active Severity Reaction acetaminophen-oxyCODONE None Documented cefaclor None Documented Septra None Documented sulfa drug None Documented Bactrim Rash Current medications: (Selected) Prescriptions Prescribed ALPRAZolam 0.5 mg oral tablet: 0.5 mg = 1 tab(s), PO, BID, PRN: as needed for anxiety, 60 tab(s), 2 Refill(s) Adipex-P 37.5 mg oral tablet: 37.5 mg = 1 tab(s), Oral, Daily, 30 tab(s), 0 Refill(s) Eliquis 5 mg oral tablet: 1 tab(s), Oral, BID, 60 tab(s), 5 Refill(s) FeroSul 325 mg (65 mg elemental iron) oral tablet: See Instructions, TAKE ONE TABLET BY MOUTH DAILY, 30 tab(s), 0 Refill(s) Lomotil 2.5 mg-0.025 mg oral tablet: 1 tab(s), PO, q12hr, PRN: as needed for loose stool, 30 tab(s), 2 Refill(s) Potassium Chloride (Eqv-K-Tab) 20 mEq oral tablet, extended release: 1 tab(s), Oral, BID, 60 tab(s), 5 Refill(s) Ventolin HFA 90 mcg/inh inhalation aerosol: 2 puff(s), INH, q4hr, PRN: NEEDED FOR WHEEZING, 18 gm, 6 Refill(s) amLODIPine 10 mg oral tablet: 1 tab(s), PO, Daily, 30 tab(s), 0 Refill(s) cetirizine 10 mg oral tablet: See Instructions, TAKE ONE TABLET BY MOUTH DAILY, 90 tab(s), 1 Refill(s) hydrochlorothiazide-losa rtan 25 mg-100 mg oral tablet: 1 tab(s), PO, Daily, 90 tab(s), 3 Refill(s) tiZANidine 4 mg oral tablet: 1 tab(s), PO, Once a day (at bedtime), 90 tab(s), 1 Refill(s), Home Medications (11) Active Adipex-P 37.5 mg oral tablet 37.5 mg = 1 tab(s), Oral, Daily ALPRAZolam 0.5 mg oral tablet 0.5 mg = 1 tab(s), PRN, PO, BID amLODIPine 10 mg oral tablet 1 tab(s), PO, Daily cetirizine 10 mg oral tablet See Instructions Eliquis 5 mg oral tablet 1 tab(s), Oral, BID FeroSul 325 mg (65 mg elemental iron) oral tablet See Instructions hydrochlorothiazide-losa rtan 25 mg-100 mg oral tablet 1 tab(s), PO, Daily Lomotil 2.5 mg-0.025 mg oral tablet 1 tab(s), PRN, PO, q12hr Potassium Chloride (Eqv-K-Tab) 20 mEq oral tablet, extended release 1 tab(s), Oral, BID tiZANidine 4 mg oral tablet 1 tab(s), PO, Once a day (at bedtime) Ventolin HFA 90 mcg/inh inhalation aerosol 2 puff(s), PRN, INH, q4hr Problem list (past medical history): Active Problems (8) Anxiety asthma HTN (hypertension) Hyperlipidemia ALVINO on CPAP Psoriasis Tobacco use Venous insufficiency (chronic) (peripheral) Physical Examination VS/Measurements Vital Signs 02/14/2024 8:12 EDT Peripheral Pulse Rate 66 bpm Systolic Blood Pressure 90 mmHg Diastolic Blood Pressure 60 mmHg BP Site Left arm SpO2 96 % , Measurements from flowsheet : Measurements 02/14/2024 8:12 EDT Height 162.56 cm Height/Length Measured (inches) 64 in Weight 100.61 kg Weight Measured (lbs) 221.807 lb Weight Dosing 100.610 kg Body Mass Index 38.07 kg/m2 Erin Body Weight Calculated 54.7 kg BSA Measured 2.13 m2 General: Alert and oriented, No acute distress. Integumentary: Left medial calf. Positive wound noted. Good granulation tissue on the edges. Filling in by secondary intention. Measures 2 cm x 1.5 cm.. Impression and Plan Diagnosis Obesity ([id number] E66.9). Plan: Continue on current medication should follow-up in 1 month. Will monitor her use.. Orders Orders Pharmacy: Adipex-P 37.5 mg oral tablet (Prescribe): 37.5 mg = 1 tab(s), Oral, Daily, 30 tab(s), 0 Refill(s) Adipex-P 37.5 mg oral tablet (Modify): 37.5 mg = 1 tab(s), Oral, Daily, 30 tab(s), 0 Refill(s). Orders Evaluation and Management: 16841 Office visit - established pt, Level 3 (Order): 02/14/2024 7:57 EDT, Qty: 1, Obesity - Dog bite of calf. Diagnosis Dog bite of calf ([id number] S81.859A). Course (more content not included)... Normal [facility] Office/Clinic Noteon 024 Office/Clinic Note Patient: SOFIA MIGUEL Age: 48 years Sex: FEMALE : 1975 Associated Diagnoses: Dog bite of yang; Obesity Author: Roscoe Stout MD A History of Present Illness 48-year-old female here for 2-week follow-up for being bit by a dog in the leg. It has continued to heal and fill in by granulation. It did ulcerate initially. No purulent drainage. She is no longer on any antibiotics. Is still slightly tender around the edges. At times when she is on her feet all day at work it will seep but more serous drainage and purulent. She is also asking about weight loss. We had checked blood work she is not diabetic. Her thyroid was good. She does have a BMI of 35. She states she has been trying to eat more healthily also attempts to remain active. Review of Systems Constitutional: Negative. Respiratory: Negative. Cardiovascular: Negative. Integumentary: Negative except as documented in history of present illness. Health Status Allergies: Allergic Reactions (Selected) Severity Not Documented Acetaminophen-oxyCODONE- No reactions were documented. Bactrim- Rash. Cefaclor- No reactions were documented. Septra- No reactions were documented. Sulfa drug- No reactions were documented., Allergies (5) Active Severity Reaction acetaminophen-oxyCODONE None Documented cefaclor None Documented Septra None Documented sulfa drug None Documented Bactrim Rash Current medications: (Selected) Prescriptions Prescribed ALPRAZolam 0.5 mg oral tablet: 0.5 mg = 1 tab(s), PO, BID, PRN: as needed for anxiety, 60 tab(s), 2 Refill(s) Eliquis 5 mg oral tablet: 1 tab(s), Oral, BID, 60 tab(s), 0 Refill(s) FeroSul 325 mg (65 mg elemental iron) oral tablet: See Instructions, TAKE ONE TABLET BY MOUTH DAILY, 30 tab(s), 0 Refill(s) Lomotil 2.5 mg-0.025 mg oral tablet: 1 tab(s), PO, q12hr, PRN: as needed for loose stool, 30 tab(s), 2 Refill(s) Potassium Chloride (Eqv-K-Tab) 20 mEq oral tablet, extended release: 1 tab(s), Oral, BID, 60 tab(s), 0 Refill(s) Ventolin HFA 90 mcg/inh inhalation aerosol: 2 puff(s), INH, q4hr, PRN: NEEDED FOR WHEEZING, 18 gm, 6 Refill(s) amLODIPine 10 mg oral tablet: 1 tab(s), PO, Daily, 30 tab(s), 0 Refill(s) cetirizine 10 mg oral tablet: See Instructions, TAKE ONE TABLET BY MOUTH DAILY, 90 tab(s), 1 Refill(s) hydrochlorothiazide-losa rtan 25 mg-100 mg oral tablet: 1 tab(s), PO, Daily, 90 tab(s), 3 Refill(s) tiZANidine 4 mg oral tablet: 1 tab(s), PO, Once a day (at bedtime), 90 tab(s), 1 Refill(s), Home Medications (10) Active ALPRAZolam 0.5 mg oral tablet 0.5 mg = 1 tab(s), PRN, PO, BID amLODIPine 10 mg oral tablet 1 tab(s), PO, Daily cetirizine 10 mg oral tablet See Instructions Eliquis 5 mg oral tablet 1 tab(s), Oral, BID FeroSul 325 mg (65 mg elemental iron) oral tablet See Instructions hydrochlorothiazide-losa rtan 25 mg-100 mg oral tablet 1 tab(s), PO, Daily Lomotil 2.5 mg-0.025 mg oral tablet 1 tab(s), PRN, PO, q12hr Potassium Chloride (Eqv-K-Tab) 20 mEq oral tablet, extended release 1 tab(s), Oral, BID tiZANidine 4 mg oral tablet 1 tab(s), PO, Once a day (at bedtime) Ventolin HFA 90 mcg/inh inhalation aerosol 2 puff(s), PRN, INH, q4hr Problem list (past medical history): Active Problems (8) Anxiety asthma HTN (hypertension) Hyperlipidemia ALVINO on CPAP Psoriasis Tobacco use Venous insufficiency (chronic) (peripheral) Physical Examination VS/Measurements Vital Signs 01/11/2024 8:40 EDT Peripheral Pulse Rate 63 bpm Systolic Blood Pressure 110 mmHg Diastolic Blood Pressure 66 mmHg BP Site Left arm SpO2 98 % , Measurements from flowsheet : Measurements 01/11/2024 8:40 EDT Height 162.56 cm Height/Length Measured (inches) 64 in Weight 103.51 kg Weight Measured (lbs) 228.2 lb Weight Dosing 103.510 kg Body Mass Index 39.17 kg/m2 Erin Body Weight Calculated 54.7 kg BSA Measured 2.16 m2 General: Alert and oriented, No acute distress. Respiratory: Lungs are clear to auscultation, Respirations are non-labored, Breath sounds are equal. Cardiovascular: Normal rate, Regular rhythm, No murmur. Integumentary: Positive scab on left anterior leg. It measures 2 cm x 1.5 cm. Slight induration. No purulent drainage.. Impression and Plan Diagnosis Dog bite of yang (FWN45-ER S81.859A). Plan: Will place back on antibiotic just for prophylaxis. Continue to wash with soap and water.. Orders Orders Pharmacy: amoxicillin-clavulanate 875 mg-125 mg oral tablet (Prescribe): 1 tab(s), Oral, q12hr, for 10 day(s), 20 tab(s), 0 Refill(s). Orders Evaluation and Management: 30700 Office visit - established pt, Level 3 (Order): 01/11/2024 8:38 EDT, Qty: 1, Dog bite of yang - Obesity. Diagnosis Obesity (SMX75-XD E66.9). Orders Orders Pharmacy: [facility] 37.5 mg oral tablet (Prescribe): 37.5 mg = 1 tab(s), Oral, Daily, 30 tab(s), 0 Refill(s). Chart was reviewed. Discussed safety issues with respect to the medication. Will have her follow (more content not included)... [facility] Outside Recordson 01-06-2024 Outside Records [id number] TIFF [facility] Coding Summaryon 12-28-2023 Coding Summary HTMLBase 64 FoqjlrkeTEj4zIq+PGhlYWQ+ JM8EJXKiK79uxJSnwE1rD5QF TElOSywgQVBQTElOSyIgbmFt OW5gdSRfNGHl IC8+DA3oKWXuDjpewWWrx4S3 uJG4B10uno6nMSdqpPF2DJSf GaSwgdxok4zpzEv9OOomZvzv OyBt YFQnpU98WDF1oR26Ma98uMCh qAKrr1pzyMd6AsRmVXMhRVY2 vVppCThcb6IlCQJpT08tnFZz c2U6 VRThnUfojAEkRjYqsDX4aZ5z GXeyqjqpm5pfwemaUgv7dr46 wBNhh3Y3wOC6L5YtpeY8SDYc bGQg JasbvWCWaN2yqkvro2ssdghy MvMoUSWkRWr7VFo5AVSihGzq GyBhBY51UGN9NIRaiiTgM2Xr LWFs fFrgQuR5e5N5Xy9JF0SHOagc J7KMYUDRIMdwoFA+TY71ti66 J2AwWzrvGqg2RVGvNGW5sPG8 aD0n QTRmNPjyn9X0eUV9W6LxkcNu rc5jq0ddPTZzOGdhO81mbVEd n7C9PAGxrYS1RDKkyLjpHjEa aG93 Oyc+ODLqlRkgg6AkVjhfd5az u2mpyCw5HkejPIAvefSloPrf CTT5e2XzOm5cPCPrnIS2bWO0 aD0i WkLlLqG0PJpxX683TdAuaWUo LalrC03dG2FjrRS+PHRyPjx0 XFZqrLhkUV2bU1GfPAItyjqk bGVm yAvmXS8hSDDwlmzxNKUmbM2c DKJnA0g3QuLwStD7VEufC7Bd HERkkmqoWy87cN4vRlBtImG2 MGlu O8OgdfS1OYIxdUJnXJpyHCH4 N97ry1R3UYBzTFFfAWT6qIZ3 kB1poChshaxyzOZosAflnnFx dGlj KTwjNLvkP739MCHxpWtdUmRz ZGluZyBEYXRlOiAgMDMvMDUv MjAyNDwvdGQ+MTXbRFE6gOkj PSAn tVYkRGxaSf0pkLlisSowSH6k TGZomjqhICHrqP3gKKTcsPAx qZbpIQ8xADYpgslcm644ZwTx MHB0 WDYpaJQoO7KfsK4fGyMwRWUd OPNuB6GqqCNdUFxdK002JNrr DbB9EOSccwKuP7JjMIMbzQno OiB0 t7E5Ic6Qh0VichwxN7HqdKKn HmMgWcjdPIq2W3LvOnyoqXH+ BR29QGXjPZ08FWh7TKI3kHbg PSdi DHHqB7LjzA1hFeIgIIUaHVHc Oyc+PHRhYmxlIHdpZHRoPScx IBOvYdFgvEiyTO2tZw8qFMMn LWNv yDpeyIZeWzUwo2svNTSwHUge NJ1ymSjjJ3QgiAF5DZNoy0u8 Nt73G00pA3UmlKQ+PGNvbCB3 aWR0 fD1zIpXcOaE7NDebA658OdAr yHChUfnqm3dqw8rxpFk2LjJ8 LUAlgbQliSdiHAG9p5KnYj99 Y29s IHdpZHRoPSIxNSUiIHZhbGln zw2xmJ1oTv1+WITlwMQ8oIW9 tT4sEfDpYmT2LEwmG183LmAl cCIv Qjfuv9rcn7zarPf3NaPnOPIc mvGnvJakYQL6x3YyMw47W2Zo hPuwp0TqYsj4jg97pUQas8O2 bGU9 X4KcVZNvkztdwGFpdYchDB4r JAGnwgyiWTLzpJ4hPVGvM6t1 JjYhVaI2ZWtwU8WxunX3XINu bGQg DIOhiUBFbI5ixqqxn7hujdlx NyYlIWHkYCh4XJa8MFOzqXcf YvMvWTA9OtC9RMR9nOLyvV1n bGln hqrbbA6dUww+ERA6cTJsiRRU ZC4uKznghJV+GLShMVO5bXrx GSezFJZonV5dTPSaJ8t7GkZe LjA1 CGtlB4IpzaF4TAXteGNaTWVj lHCDsC8ufdygf0gixwyxOkNb MGZkVXd1OPo0XZHlmGwxEdBc ZWZ0 IvX3GEL0pDMrbC2mvJfticae bO4aAnf+OtrioLvgNRL0OPt8 M5EaAzr8LOAvqPlhJU2ubYHt ZGlu Ns3zlParuGkaOK0gOMXmntuc p454CfUvn5cbVHJziEEzTPiw ZNH1L98yo0F0UWZgHJAjWTM6 dGV4 eI0wdWskxlarbRIdmPsogqEs cKstIWcnCXvgT698MIPdzVzn RxDdAIl5T3NaIag5LYAmhVie ZT0n dHRwYOlmGf2ddPknrXduOC7m XFDndfnvx380RzSkg3ojLEMb zHPkXWsrTAC0W01us1R0VZXv MDAw OSY0vTZ0fN7rjPruirqgtCMa eUfrdzXuaPsdITjjINllD145 UVWizCyrAfGvwBc5B8QzJax4 ZCBz aEntHB7mvVWnBTclGb8cjRgv vOqrSI1tVUOhrxddo662AmVf p4nsHMNfgECjTDpyHTR1G02t b3I6 UUWeOIAfVIL8wRS0xI8vkJgc bjogbGVmdDsgdmVydGljYWwt QRaxW560MXZulEhvKjFryAkl bnQg ZBadMTo1A5CdLgkmsJO+PC90 BMLqDM84sDMvdMDkg8zwzLo6 RcLxHDToPGP9cVzbRGtaf3Ea ZXIt A39gjLUis6X7UZGhnLnmgNSg PaJfvFA0hX5wCUfjentgv0bw xbmcDjgno0ycec61gK49K53y IHdp HLZyPRPdUOIbQNDrsBhxqa9c kR4mUa2+MNRpzAR8xRM7oH9j XBCoUgV3QCzrS940OtRlyYLw Pjxj b3ixr3rcgSk6HhM6HXHqolVk lNolFWB1n5XxWx61O96jSTnh MONzCGHlPNGjODVboFrcuh7u dG9w Ii8+UVFvgHL9xHS2jC6oMeIf DrS9AFdoX949TaVxvKZgBlxl J71yQ5PgyVW+THUcOnl7PCHn dHls NJ0wtJOnRRyvZq1xSYK1BxHi GkOnCCatY6BdHXSuneyavphu xEN4ANXuSIFjaQ85Op2jpTlt MTBw nTXTyY7qnbcof9zsssieKwSd UVQaITs0UAu9PYMsiLloJsEo UAT0KoW9HGA9uZLbeF6mzYzk bjog pH3hT0HhVBUbfwzpNq07hZ9a ZdTeCcH7USexBxe+R2ZLCvgp E98YQplRXWYIPJlnaKH+PHRk IHN0 uJqmKBaoBNQraU0kQGXbY2g4 DfIhYnW6BOyzB6ReTBUirrwv Zd15sQ6aUkMgObV3RWbgL8Nl bnQ6 CDEwvPDqSSfjZIX5W30jt6V5 SUEcOPTdXXW1bZM6bO3czPdx bjogbGVmdDsgdmVydGljYWwt YWxp H151OZKtySvrUbR4UmP7FvN3 KaT5L4LoOqk8CPAewFcnGG1j iLXnBDuvSy6ixPsjrKtcTR4z NTBp wgdxHKJhhW0pEUKytMFlcCep EE1eLWDoglvfx894OrZxXDS8 WRTvzWAaT8XyvY0iQqRqQXBp MDAw L2BjkJLaWHbqD569BXnwPnU8 UCQkseYhB3SrWTMwzYajAqG6 h3I6Wz98ZYVQQFKndwtdbZW+ PHRk FCJ2pWkdQCvoRJPfeP9mDGSl K4d8UwAoRtP7MFcvC9FnFCFg unswGz72hK2zKsKxRjV6CFit O2Zv myW5PRVhhFHcXImnIVH2N70i c7A1XBYtNZDvJBA6yDL9sJ6z bGlnbjogbGVmdDsgdmVydGlj YWwt NFkqY807TBCdeHhfRyIJRACD RTwvdGQ+EEJdGJX0xNuwWCfj JJDzjR2dXVTrX1z6YlQeWlZ2 MGlu D0YdQNHrcrubTn61tD8eOmWd InQ1IGgeI1MwekZ8IFMvrANq HKynJVI9G97vl8E0JFNzAVKd MDA7 yMV4cX9epLyeobmyvPDjwRlv kbWcpHksBVswCEwbL314PHXk uBtrMq3PMB27YO56L1YqWcvc dGFi bGU+PHRhYmxlIHdpZHRoPScx ABUfWyCqeYpwKR1qEl8jMVJe VTEvrUsxrTDmLaMlz4xlHBDy ZTsg CJ6nvQymB2IzdEH6NVXwt3b9 Re31O27xP5QlcVF+PGNvbCB3 iJO3dE6yHyJpKeP0KRvbT816 InRv kRVlFslsl6tdu8xqmZc3KcKu WBSpdxOxhUfsVON3e2CyGr07 F30zZHnzKYWqCYIvSZJjCTDo bGln bv1vtJ0xNr6+JUPilOH3lIU5 cT4yWqIoZrZ2UVuhR079NaEr tFOwFldpF45aH4OfrUF+PHRy Pjx0 GSJkqVpmVW9ttWXmYHplWv0z BRW1OcBeBjXzJNglZ7OiVPZq jgbcbbcakDC8EPGaLLSjiV69 Zm9u pKrbIl0cVCGpWMX5IOBepLEp A6OwxG3uGeEcDBEmLQCwR1Bz vALvNKhhR262DMimMlZ8NTTf cnRp R0RuSSIomDtjGwA4e5L0Kj5P tUfvtLRwIG0iGxQgTTg8J8Ao Zgy1KGUzjUkeZT9jxAXkPGez Zy1y wIywuGqvKL7oNUAmupazi351 FxTdq9leDNNzrJWgKPkxHNY9 A84kd0G2MDTtDPJrHUG1wTL2 dC1h bGlnbjogbGVmdDsgdmVydGlj DVvmDGeuE075EMJaySbqNlPO Nnx5R3IyOme8VPZjhKaxSP8l cGFk UTsiEt2teEtppQmfLI9xYSZp rthkq998GeJvw5hiMUKmqHJc TTfqTWS6H37zr7E0OWIpASRf MDA7 xNI9hZ7alWhypyydjZSnbTsn sqTxtBxlIPexHEvvK640HEDe dMvjGl8YSvi9R7HtVdn1KDGj dHls IK6cqJXkTJsvUn5ljRjdmFix QB0yNIPcqdjns534QoKun7mv GIQocKXlPGopMQY8J66pl9X9 ICMw BLAsOYE8rOZ7vX2ulPxidwnu bGVmdDsgdmVydGljYWwtYWxp J195ALHmdPwyKoWaoOQuQyei dGQ+ KY08ui62A0PhJaguSga2YAJl ZSA2qQV4wT6xJJMsKCizh3A1 nCW6B0QddaGwke7ct2ewUEKx ZTog Y29 (more content not included)... Normal [facility] Standardon 12-22-2023 eGFR Non AA 46 mL/min/1.73m2 Invalid Interpretation Code [facility] Comment on above: Performed By: #### 1 [id number], [id number], [id number], [id number] ####[facility] (DEFAULT)[address] [place] [address] eGFR AA 56 mL/min/1.73m2 Invalid Interpretation Code [facility] Comment on above: Performed By: #### 1 [id number], [id number], [id number], [id number] ####[facility] (DEFAULT)[address] [place] [address] Albumin [Mass/Vol] 3.8 g/dL Normal 3.5-5.0 [facility] Comment on above: Performed By: #### 1 [id number], [id number], [id number], [id number] ####[facility] (DEFAULT)[address] [place] [address] Albumin/Globulin [Mass ratio] 1.1 {ratio} Low 1.4-2.6 [facility] Comment on above: Performed By: #### 1 [id number], [id number], [id number], [id number] ####[facility] (DEFAULT)[address] [place] [address] Alk Phos 84 IU/L Normal 32-91 [facility] Comment on above: Performed By: #### 1 [id number], [id number], [id number], [id number] ####[facility] (DEFAULT)[address] [place] [address] ALT [Catalytic activity/Vol] 25.0 U/L Normal 14.0-54.0 [facility] Comment on above: Performed By: #### 1 [id number], [id number], [id number], [id number] ####[facility] (DEFAULT)[address] [place] [address]177 Anion gap [Moles/Vol] 13.1 mmol/L Normal 5.0-19.0 [facility] Comment on above: Performed By: #### 1 [id number], [id number], [id number], [id number] ####[facility] (DEFAULT)[address] [place] [address] 74676 AST [Catalytic activity/Vol] 27 U/L Normal 15-41 [facility] Comment on above: Performed By: #### 1 [id number], [id number], [id number], [id number] ####[facility] (DEFAULT)[address] [place] [address] 98749 Bili Total 0.7 mg/dL Normal 0.3-1.2 [facility] Comment on above: Performed By: #### 1 [id number], [id number], [id number], [id number] ####[facility] (DEFAULT)[address] [place] [address] 85893 Calcium [Mass/Vol] 9.1 mg/dL Normal 8.9-10.3 [facility] Comment on above: Performed By: #### 1 [id number], [id number], [id number], [id number] ####[facility] (DEFAULT)[address] [place] [address] 97209 Chloride [Moles/Vol] 105 mmol/L Normal 101-111 [facility] Comment on above: Performed By: #### 1 [id number], [id number], [id number], [id number] ####[facility] (DEFAULT)[address] [place] [address] 34536 CO2 [Moles/Vol] 24 mmol/L Normal 21-32 [facility] Comment on above: Performed By: #### 1 [id number], [id number], [id number], [id number] ####[facility] (DEFAULT)[address] [place] [address] 91041 Creatinine [Mass/Vol] 1.24 mg/dL Normal 0.60-1.30 [facility] Comment on above: Performed By: #### 1 [id number], [id number], [id number], 735394927 ####[facility] (DEFAULT)[address] [place] [address] 57747 Globulin (S) [Mass/Vol] 3.2 g/dL Normal 1.5-4.3 [facility] Comment on above: Performed By: #### 1 [id number], [id number], [id number], [id number] ####[facility] (DEFAULT)[address] [place] [address] 85142 Glucose [Mass/Vol] 117.0 mg/dL Normal 74.0-118.0 [facility] Comment on above: Performed By: #### 1 [id number], [id number], [id number], [id number] ####[facility] (DEFAULT)[address] [place] [address] 64330 Osmolality 284 mOsm/L Invalid Interpretation Code [facility] Comment on above: Performed By: #### 1 [id number], [id number], [id number], [id number] ####[facility] (DEFAULT)[address] [place] [address] 77288 Potassium [Moles/Vol] 4.1 mmol/L Normal 3.6-5.1 [facility] Comment on above: Performed By: #### 1 [id number], [id number], [id number], [id number] ####[facility] (DEFAULT)[address] [place] [address] 06214 Protein [Mass/Vol] 7.0 g/dL Normal 6.5-8.1 [facility] Comment on above: Performed By: #### 1 [id number], [id number], [id number], [id number] ####[facility] (DEFAULT)[address] [place] [address] 12252 Sodium [Moles/Vol] 138.0 mmol/L Normal 136.0-144.0 [facility] Comment on above: Performed By: #### 1 [id number], [id number], [id number], [id number] ####[facility] (DEFAULT)[address] [place] [address] Urea nitrogen [Mass/Vol] 32 mg/dL High 8-26 [facility] Comment on above: Performed By: #### 1 [id number], [id number], [id number], [id number] ####[facility] (DEFAULT)[address] [place] [address] Urea nitrogen/Creatini ne [Mass ratio] 25.8 mg/mg High 4.6-16.2 [facility] Comment on above: Performed By: #### 1 [id number], [id number], [id number], [id number] ####[facility] (DEFAULT)[address] [place] [address] HgbA1c Standardon 12-22-2023 .Hb 11.8 Invalid Interpretation Code [facility] Comment on above: Performed By: #### 1 [id number], [id number], [id number], [id number] ####[facility] (DEFAULT)[address] [place] [address] .Hgb A1c 0.41 g/dL Invalid Interpretation Code [facility] Comment on above: Performed By: #### 1 [id number], [id number], [id number], [id number] ####[facility] (DEFAULT)[address] [place] [address] Glucose [Mass/Vol] 105 mg/dL Invalid Interpretation Code [facility] Comment on above: Performed By: #### 1 [id number], [id number], [id number], [id number] ####[facility] (DEFAULT)[address] [place] [address] HbA1c (Bld) [Mass fraction] 5.3 % Normal 4.6-6.2 [facility] Comment on above: Performed By: #### 1 [id number], [id number], 4113926852, [id number] ####[facility] (DEFAULT)[address] [place] [address]10 Lipid Panel Standardon 12-22 Cholesterol [Mass/Vol] 174.0 mg/dL Normal 66.0-200.0 [facility] Comment on above: Performed By: #### 1 [id number], [id number], [id number], [id number] ####[facility] (DEFAULT)[address] [place] [address] 78199 Cholesterol in HDL [Mass/Vol] 37 mg/dL Low 40-71 [facility] Comment on above: Performed By: #### 1 [id number], [id number], [id number], [id number] ####[facility] (DEFAULT)[address] [place] [address] 12155 Cholesterol in LDL [Mass/Vol] 102 mg/dL High 1-100 [facility] Comment on above: Performed By: #### 1 [id number], [id number], [id number], [id number] ####[facility] (DEFAULT)[address] [place] [address] 00242 Cholesterol.total /Cholesterol in HDL [Mass ratio] 4.7 {ratio} High 0.0-4.5 [facility] Comment on above: Performed By: #### 1 [id number], [id number], [id number], [id number] ####[facility] (DEFAULT)[address] [place] [address] 09392 Triglyceride [Mass/Vol] 176.0 mg/dL High 0.0-150.0 [facility] Comment on above: Performed By: #### 1 [id number], [id number], [id number], [id number] ####[facility] (DEFAULT)[address] [place] [address] 63597 VLDL. 35 mg/dL Normal 5-40 [facility] Comment on above: Performed By: #### 1 [id number], [id number], [id number], [id number] ####[facility] (DEFAULT)[address] [place] [address]77 Office/Clinic Noteon 024 Office/Clinic Note Patient: SOFIA MIGUEL Age: 48 years Sex: FEMALE : 1975 Associated Diagnoses: Dog bite of yang; Hyperlipidemia; Hyperglycemia; HTN (hypertension) Author: Roscoe Stout MD A History of Present Illness 48-year-old female presents today for 1 week follow-up of dog bite to her left leg. She has continued on of Augmentin. Tolerating medication well. Swelling has gone down but there is still an open wound that is now filling in by secondary intention. Still slightly tender the touch. Review of Systems Constitutional: Negative. Integumentary: Negative except as documented in history of present illness. Health Status Allergies: Allergic Reactions (Selected) Severity Not Documented Acetaminophen-oxyCODONE- No reactions were documented. Bactrim- Rash. Cefaclor- No reactions were documented. Septra- No reactions were documented. Sulfa drug- No reactions were documented., Allergies (5) Active Severity Reaction acetaminophen-oxyCODONE None Documented cefaclor None Documented Septra None Documented sulfa drug None Documented Bactrim Rash Current medications: (Selected) Prescriptions Prescribed ALPRAZolam 0.5 mg oral tablet: 0.5 mg = 1 tab(s), PO, BID, PRN: as needed for anxiety, 60 tab(s), 2 Refill(s) Eliquis 5 mg oral tablet: See Instructions, TAKE ONE TABLET BY MOUTH TWICE A DAY, 60 tab(s), 5 Refill(s) FeroSul 325 mg (65 mg elemental iron) oral tablet: See Instructions, TAKE ONE TABLET BY MOUTH DAILY, 30 tab(s), 0 Refill(s) Lomotil 2.5 mg-0.025 mg oral tablet: 1 tab(s), PO, q12hr, PRN: as needed for loose stool, 30 tab(s), 2 Refill(s) Potassium Chloride (Eqv-K-Tab) 20 mEq oral tablet, extended release: 1 tab(s), Oral, BID, 60 tab(s), 0 Refill(s) Ventolin HFA 90 mcg/inh inhalation aerosol: 2 puff(s), INH, q4hr, PRN: NEEDED FOR WHEEZING, 18 gm, 6 Refill(s) amLODIPine 10 mg oral tablet: 1 tab(s), PO, Daily, 30 tab(s), 0 Refill(s) amoxicillin-clavulanate 875 mg-125 mg oral tablet: 1 tab(s), Oral, q12hr, for 10 day(s), 20 tab(s), 0 Refill(s) cetirizine 10 mg oral tablet: See Instructions, TAKE ONE TABLET BY MOUTH DAILY, 90 tab(s), 1 Refill(s) hydrochlorothiazide-losa rtan 25 mg-100 mg oral tablet: 1 tab(s), PO, Daily, 90 tab(s), 3 Refill(s) tiZANidine 4 mg oral tablet: 1 tab(s), PO, Once a day (at bedtime), 90 tab(s), 1 Refill(s), Home Medications (11) Active ALPRAZolam 0.5 mg oral tablet 0.5 mg = 1 tab(s), PRN, PO, BID amLODIPine 10 mg oral tablet 1 tab(s), PO, Daily amoxicillin-clavulanate 875 mg-125 mg oral tablet 1 tab(s), Oral, q12hr cetirizine 10 mg oral tablet See Instructions Eliquis 5 mg oral tablet See Instructions FeroSul 325 mg (65 mg elemental iron) oral tablet See Instructions hydrochlorothiazide-losa rtan 25 mg-100 mg oral tablet 1 tab(s), PO, Daily Lomotil 2.5 mg-0.025 mg oral tablet 1 tab(s), PRN, PO, q12hr Potassium Chloride (Eqv-K-Tab) 20 mEq oral tablet, extended release 1 tab(s), Oral, BID tiZANidine 4 mg oral tablet 1 tab(s), PO, Once a day (at bedtime) Ventolin HFA 90 mcg/inh inhalation aerosol 2 puff(s), PRN, INH, q4hr Problem list (past medical history): Active Problems (8) Anxiety asthma HTN (hypertension) Hyperlipidemia ALVINO on CPAP Psoriasis Tobacco use Venous insufficiency (chronic) (peripheral) Physical Examination VS/Measurements Vital Signs 12/22/2023 11:07 EST Peripheral Pulse Rate 57 bpm LOW Systolic Blood Pressure 126 mmHg Diastolic Blood Pressure 76 mmHg BP Site Left arm SpO2 97 % , Measurements from flowsheet : Measurements 12/22/2023 11:07 EST Height 162.56 cm Height/Length Measured (inches) 64 in Weight 103.60 kg Weight Measured (lbs) 228.399 lb Weight Dosing 103.600 kg Body Mass Index 39.2 kg/m2 Erin Body Weight Calculated 54.7 kg BSA Measured 2.16 m2 General: Alert and oriented, No acute distress. Integumentary: Left medial yang. There is a 8 mm x 8 mm round deep puncture wound noted. No significant erythema. No loculation around the wound. No drainage.. Impression and Plan Diagnosis Dog bite of yang (GTY61-IB S81.859A). Plan: Slowly improving. Will have her continue the antibiotic. Follow-up 1 week for reevaluation. At this time I do not feel as though she needs wound care. We need to keep her on an antibiotic for a longer period of time.. Orders Orders Evaluation and Management: 63240 Office visit - established pt, Level 3 (Order): 12/22/2023 10:58 EST, Qty: 1, Dog bite of yang - Hyperlipidemia - HTN (hypertension). Diagnosis Hyperlipidemia (ASZ37-XR E78.5). Hyperglycemia (SXZ60-QP R73.9). HTN (hypertension) (ICB46-NL I10). Course: At the very end of her appointment patient was complaining about difficulty with weight loss and gaining weight. She states she attempts to be active and does not eat poorly reviewing her chart she has gained weight. She has not had any blood work in over a year. Seeing some acute numbers she has had some elevated blood sugars. Will ch (more content not included)... Normal [facility] TSH w/ Reflex to FT4on 12-22 TSH Qn 2.12 m[IU]/L Normal 0.45-5.33 [facility] Comment on above: Result Comment: Gene ral Population (males and non- females, aged 21-88) 0.45 - 5.33 Females, 1st Trimester 0.05 - 3.70 Females, 2nd Trimester 0.31 - 4.35 Females, 3rd Trimester 0.41 - 5.18 Performed By: #### 1 [id number], [id number], [id number] ####[facility] ([address] [id number] Office/Clinic Noteon 024 Office/Clinic Note Patient: SOFIA MIGUEL Age: 48 years Sex: FEMALE : 1975 Associated Diagnoses: Dog bite of left lower leg Author: Roscoe Stout MD A History of Present Illness 48-year-old female presents today for evaluation of a dog bite. She was walking out to her car and her dog was underneath her car and got startled and bit her on the left leg. She immediately cleaned the wound out with water and hydroperoxide. Since then it has become very hard. Tender to the touch. No drainage. There is also black scab noted. There is erythema around the puncture wound. She does not know whose dog it was. She denies any fever or chills. Review of Systems Constitutional: Negative. Integumentary: Negative except as documented in history of present illness. Health Status Allergies: Allergic Reactions (Selected) Severity Not Documented Acetaminophen-oxyCODONE- No reactions were documented. Bactrim- Rash. Cefaclor- No reactions were documented. Septra- No reactions were documented. Sulfa drug- No reactions were documented., Allergies (5) Active Severity Reaction acetaminophen-oxyCODONE None Documented cefaclor None Documented Septra None Documented sulfa drug None Documented Bactrim Rash Current medications: (Selected) Prescriptions Prescribed ALPRAZolam 0.5 mg oral tablet: 0.5 mg = 1 tab(s), PO, BID, PRN: as needed for anxiety, 60 tab(s), 2 Refill(s) Eliquis 5 mg oral tablet: See Instructions, TAKE ONE TABLET BY MOUTH TWICE A DAY, 60 tab(s), 5 Refill(s) FeroSul 325 mg (65 mg elemental iron) oral tablet: See Instructions, TAKE ONE TABLET BY MOUTH DAILY, 30 tab(s), 0 Refill(s) Lomotil 2.5 mg-0.025 mg oral tablet: 1 tab(s), PO, q12hr, PRN: as needed for loose stool, 30 tab(s), 2 Refill(s) Potassium Chloride (Eqv-K-Tab) 20 mEq oral tablet, extended release: 1 tab(s), Oral, BID, 60 tab(s), 0 Refill(s) Ventolin HFA 90 mcg/inh inhalation aerosol: 2 puff(s), INH, q4hr, PRN: NEEDED FOR WHEEZING, 18 gm, 6 Refill(s) amLODIPine 10 mg oral tablet: 1 tab(s), PO, Daily, 30 tab(s), 0 Refill(s) cetirizine 10 mg oral tablet: See Instructions, TAKE ONE TABLET BY MOUTH DAILY, 90 tab(s), 1 Refill(s) hydrochlorothiazide-losa rtan 25 mg-100 mg oral tablet: 1 tab(s), PO, Daily, 90 tab(s), 3 Refill(s) tiZANidine 4 mg oral tablet: 1 tab(s), PO, Once a day (at bedtime), 90 tab(s), 1 Refill(s), Home Medications (10) Active ALPRAZolam 0.5 mg oral tablet 0.5 mg = 1 tab(s), PRN, PO, BID amLODIPine 10 mg oral tablet 1 tab(s), PO, Daily cetirizine 10 mg oral tablet See Instructions Eliquis 5 mg oral tablet See Instructions FeroSul 325 mg (65 mg elemental iron) oral tablet See Instructions hydrochlorothiazide-losa rtan 25 mg-100 mg oral tablet 1 tab(s), PO, Daily Lomotil 2.5 mg-0.025 mg oral tablet 1 tab(s), PRN, PO, q12hr Potassium Chloride (Eqv-K-Tab) 20 mEq oral tablet, extended release 1 tab(s), Oral, BID tiZANidine 4 mg oral tablet 1 tab(s), PO, Once a day (at bedtime) Ventolin HFA 90 mcg/inh inhalation aerosol 2 puff(s), PRN, INH, q4hr Problem list (past medical history): Active Problems (8) Anxiety asthma HTN (hypertension) Hyperlipidemia ALVINO on CPAP Psoriasis Tobacco use Venous insufficiency (chronic) (peripheral) Physical Examination VS/Measurements Vital Signs 12/15/2023 9:06 EST Peripheral Pulse Rate 72 bpm Systolic Blood Pressure 130 mmHg Diastolic Blood Pressure 90 mmHg BP Site Left arm SpO2 98 % , Measurements from flowsheet : Measurements 12/15/2023 9:06 EST Height 162.56 cm Height/Length Measured (inches) 64 in Weight 102.97 kg Weight Measured (lbs) 227.01 lb Weight Dosing 102.970 kg Body Mass Index 38.97 kg/m2 Erin Body Weight Calculated 54.7 kg BSA Measured 2.16 m2 General: Alert and oriented, No acute distress. Integumentary: Left leg medial aspect: Positive induration and erythema noted. Warm to the touch. Tender to touch. Measures 4 cm x 4 cm. There are 2 puncture wounds noted. The one measure 8 mm x 8 mm round. Impression and Plan Diagnosis Dog bite of left lower leg ([id number] S81.852A). Plan: Will treat with Augmentin. Recommend warm compress. If symptoms were to worsen would like her to go to the emergency room. At this point I do not feel needs to be opened and drained. I could follow-up in 1 week.. Orders Orders Pharmacy: amoxicillin-clavulanate 875 mg-125 mg oral tablet (Prescribe): 1 tab(s), Oral, q12hr, for 10 day(s), 20 tab(s), 0 Refill(s). Orders Evaluation and Management: [id number] Office visit - established pt, Level 3 (Order): 12/15/2023 9:04 EST, Qty: 1, Dog bite of left lower leg. [Electronically Signed on: 12/15/2023 10:23 EST] Roscoe Stout MD [Verified on: 12/15/2023 10:23 EST] Roscoe Stout MD [facility] Office/Clinic Noteon 12-14-2 023 Office/Clinic Note Patient: SOFIA MIGUEL Age: 48 years Sex: FEMALE : 1975 Associated Diagnoses: Sinusitis Author: Roscoe Stout MD History of Present Illness 48-year-old female presents today with 5-day history of sinus pressure, thick yellowish sinus drainage, sore throat and cough. Slight nausea no vomiting or diarrhea. She states she did feel as though she was running a fever but did not check her temperature. Has not tried any vamc-fjy-gnwoazb medications. Does not feel as though it is going into her chest. She wears dentures therefore does not have any upper tooth pain. Review of Systems Constitutional: Fever, Chills. Ear/Nose/Mouth/Throat: Nasal congestion, Sore throat. Respiratory: Cough, Sputum production. Health Status Allergies: Allergic Reactions (Selected) Severity Not Documented Acetaminophen-oxyCODONE- No reactions were documented. Bactrim- Rash. Cefaclor- No reactions were documented. Septra- No reactions were documented. Sulfa drug- No reactions were documented., Allergies (5) Active Severity Reaction acetaminophen-oxyCODONE None Documented cefaclor None Documented Septra None Documented sulfa drug None Documented Bactrim Rash Current medications: (Selected) Prescriptions Prescribed ALPRAZolam 0.5 mg oral tablet: 0.5 mg = 1 tab(s), PO, BID, PRN: as needed for anxiety, 60 tab(s), 2 Refill(s) Eliquis 5 mg oral tablet: See Instructions, TAKE ONE TABLET BY MOUTH TWICE A DAY, 60 tab(s), 5 Refill(s) FeroSul 325 mg (65 mg elemental iron) oral tablet: See Instructions, TAKE ONE TABLET BY MOUTH DAILY, 30 tab(s), 0 Refill(s) Lomotil 2.5 mg-0.025 mg oral tablet: 1 tab(s), PO, q12hr, PRN: as needed for loose stool, 30 tab(s), 2 Refill(s) Potassium Chloride (Eqv-K-Tab) 20 mEq oral tablet, extended release: See Instructions, TAKE ONE TABLET BY MOUTH TWICE A DAY, 60 tab(s), 5 Refill(s) Ventolin HFA 90 mcg/inh inhalation aerosol: 2 puff(s), INH, q4hr, PRN: NEEDED FOR WHEEZING, 18 gm, 6 Refill(s) amLODIPine 10 mg oral tablet: 1 tab(s), PO, Daily, 30 tab(s), 0 Refill(s) cetirizine 10 mg oral tablet: 1 tab(s), PO, Daily, 30 tab(s), 3 Refill(s) hydrochlorothiazide-losa rtan 25 mg-100 mg oral tablet: 1 tab(s), PO, Daily, 90 tab(s), 3 Refill(s) tiZANidine 4 mg oral tablet: 1 tab(s), PO, Once a day (at bedtime), 30 tab(s), 0 Refill(s), Home Medications (10) Active ALPRAZolam 0.5 mg oral tablet 0.5 mg = 1 tab(s), PRN, PO, BID amLODIPine 10 mg oral tablet 1 tab(s), PO, Daily cetirizine 10 mg oral tablet 1 tab(s), PO, Daily Eliquis 5 mg oral tablet See Instructions FeroSul 325 mg (65 mg elemental iron) oral tablet See Instructions hydrochlorothiazide-losa rtan 25 mg-100 mg oral tablet 1 tab(s), PO, Daily Lomotil 2.5 mg-0.025 mg oral tablet 1 tab(s), PRN, PO, q12hr Potassium Chloride (Eqv-K-Tab) 20 mEq oral tablet, extended release See Instructions tiZANidine 4 mg oral tablet 1 tab(s), PO, Once a day (at bedtime) Ventolin HFA 90 mcg/inh inhalation aerosol 2 puff(s), PRN, INH, q4hr Problem list (past medical history): Active Problems (8) Anxiety asthma HTN (hypertension) Hyperlipidemia ALVINO on CPAP Psoriasis Tobacco use Venous insufficiency (chronic) (peripheral) Physical Examination VS/Measurements Vital Signs 10/07/2023 13:45 EST Peripheral Pulse Rate 61 bpm Systolic Blood Pressure 130 mmHg Diastolic Blood Pressure 82 mmHg BP Site Left arm SpO2 97 % , Measurements from flowsheet : Measurements 10/07/2023 13:45 EST Height 162.56 cm Height/Length Measured (inches) 64 in Weight 97.70 kg Weight Measured (lbs) 215.391 lb Weight Dosing 97.700 kg Body Mass Index 36.97 kg/m2 Erin Body Weight Calculated 54.7 kg BSA Measured 2.1 m2 General: Alert and oriented, No acute distress. HENT: Positive frontal maxillary sinus tenderness. Nasal turbinates are inflamed. Positive drainage in the oropharynx. TMs were clear bilaterally. No cervical lymphadenopathy.. Respiratory: Lungs are clear to auscultation, Respirations are non-labored, Breath sounds are equal. Cardiovascular: Normal rate, Regular rhythm, No murmur, Good pulses equal in all extremities. Impression and Plan Diagnosis Sinusitis (ZOL60-KG J32.9). Plan: Will treat with antibiotic. May use [id number] decongestant if needed. Should follow-up if no improvement.. Orders Orders Pharmacy: amoxicillin 500 mg oral capsule (Prescribe): 500 mg = 1 cap(s), Oral, TID, for 10 day(s), 30 cap(s), 0 Refill(s). Orders Evaluation and Management: 35244 Office visit - established pt, Level 3 (Order): 10/07/2023 13:41 EST, Qty: 1, Sinusitis. [Electronically Signed on: 10/07/2023 14:02 EST] Roscoe Stout MD [Verified on: 10/07/2023 14:02 EST] Roscoe Stout MD [facility] Physical Therapy Noteon 06-25 Physical Therapy Note [id number] IFF [facility] Outside Recordson 06-17-2023 Outside Records [id number] TIFF [facility] Coding Summaryon 06-14-2023 Coding Summary HTMLBase 64 JoogyinpQDj9eCy+PGhlYWQ+ GT4YDMGqE44txWEzvY0xI4HA TElOSywgQVBQTElOSyIgbmFt MB9dzZRtJMYu IC8+FJ0mMSOgGgjhlCVtj4R2 wQJ7A22osg6kZEjclLT3QEBq RfDqaskku8oyxAz0ABpmQehw OyBt DSCtdI88BBP6iL23Kr47oRGw kYSki4vtaYu9DvAzMSFjNJH0 cHusBOlxs6BeTHUhW58kpHEz c2U6 NMQzcXealZCdTmSxhBI6mN5f ISdwghsqq5gsrusuIch6ua83 mPCry9K5zTI0N7LujxD7MRJm bGQg YcutaKEUjL4ybldfb6orreyx XdTrUNZjVGi5GYn4PXNetRnr TzEvZY92XNB9NATrrxYzJ2Dv LWFs uDseTdW9g2A6Sj9IP9AOVmoo A6KQUQLXHAcugFG+QH77mp35 A6PkJadaGdt8SDThJPW1rOU8 aD0n UIOjNVntj0Z1cJW2I0MzwmRc pr4fh2ohQFAqWLswR90nvIJr l0S4WMCxzOI6CCAqhKezMnEm aG93 Oyc+HYPlyDwkw4TnGlflv6ue q6qptPg7QvcgMTYamuDoxEfg VRT9j3SnMa1yVSGuaXO4gME8 aD0i MpSvAbH5CZqtW217WfBtwQLh NyxfL82lG5WjrOY+PHRyPjx0 FDNadBnkXG6sR1OsIOVukouv bGVm lLjbTC9bGCRgwzusSLDduH8h GZSvU6u9IiRuGvT9JCwiX4Ip SNBocirgGj14lH3iDyZgWbT7 MGlu R8VpjjI1RKRhqTOqLGwnBPM8 W71ed3E8UVVzVFUxOCC4cNG9 sC7ryNipeagjxFMirMowynIg dGlj XFzgGPhyH503ZKIwiYbbGlOd ZGluZyBEYXRlOiAgMDgvMjEv MjAyMzwvdGQ+AUAgRWH9wTgs PSAn xQDtIGmwKt6xyHxwhIriMB2l ZXYseiepNFJowV3eLUDrmWUp wDkrNF8wOOKvlvfwr796FsEb MHB0 TDKqvOLlJ6YrgH9bXyEjFXZm UXRgB0HgvBOmZOfzI118XIso PfK3TUNcyiGfN8MhNKKmiTzr OiB0 w9H9Cl7Sc5ZrdznvF0BdfWUt IoMtLxwdJEa9D1HiFcnwvXO+ UH42OTYfZT09IQs3ZVN4iQng PSdi RSEbT8ItlJ7tKkHxCKJfMCGz Oyc+PHRhYmxlIHdpZHRoPScx APMoYcRutZgtQO3pZx7jUMLc LWNv sYymoYFwOlCat2qhBNRmQDqk DG7zoXfxP4YhhWQ2DCOun9p8 Kh07E67tY5KndGL+PGNvbCB3 aWR0 mU8hZkJpXvN9DRthY351OkCm cGPaVmjiq1aaa3ycrIn9PsK0 VLSayvYybJzrNWD8v7XsXa62 Y29s IHdpZHRoPSIxNSUiIHZhbGln bn9roT5zTu7+RDOooKC9kST5 dN8zOvDiLyB4DAbbI079DsGk cCIv Kxusg4osh8ejbPg6NlGoZLRt rmHocOhcHQP0f6KaHn95E5If ySwhj3VbJrf6wd74yQOuz5L7 bGU9 M2RmCOVcqvzniUHsfEiiDM6l JRZdibjyNINqpN1fROUoO0m0 ZcEiWxB1WVhzB4ElopT8IMRc bGQg XNGhzGWTaN9elmoqg5yepxcb GvEeZSVoTRb8YLk4TCPxlZpi JoIlMWZ2FiD0PJZ7mQXmfC1w bGln dyypoH9zQlx+FNW2yUHuuYHS MM0iAxlvjBA+BNYjWDY3wFhe BAglTRLedA8lYNXoR6z3FnLz LjA1 IPlbQ8LfdrJ3AQQanHDnMHAj qXXRrD9ypieuv2mfinpaIaFw EWIaDXj0JSw0WSDwsCraTpYw ZWZ0 DtQ7GDO5gGYksD0mhEosupvt xT6wGdr+WpffrYniFJJ0SHs1 R0GnNgm0GAQvaGtiML6oxVWp ZGlu Sg0moKnyxWsiYK1bILRvxxbv c622NtWaz5kfFQDpmHPtVUle NLM0P23dn9J8CFHdQTWnVQY3 dGV4 mE6jfFmwziipqHJqlStvxvGo gFucMAafVUucZ396WXXtbOsm OdRqIIl4U1HrKgf7USShcRvr ZT0n sKVxZHlrKm0gbJuzrPbnEJ7b GANrmpbli453IaTik1taXKRe sBVtVUfhJBS7G62dq1Q6ULCc MDAw DLD3oHP1iJ7tbOstwlmlkUIt iNjkudQfsMixDMyfZObaT461 VSKxhImaHsCkpRv6U6ZeVlf5 ZCBz bNlbQP1bzTAwHLleUn3doJax mNfmBO8kADJwrnsbt827WlEl x9lwQSJfoHSaQYevONM6M63d b3I6 QEFpAEBaGVV3nBC7eM5gzXmx bjogbGVmdDsgdmVydGljYWwt OFtfM278OJMqhWxhIlZziJkc bnQg DOxtNKa0H7RtZonfxGZ+PC90 OBEeGP73qILdgXIek6kjjJd0 FvDuLRNyUUG5kXebLZgpp4Cv ZXIt Y27bvJYnl3V5LPNjdIuxmSSf AcCqoJU0oO3jKZzkqnjnb7sw roeePhild5wscr73iY44M68n IHdp OQKvQUYnIYJzLYEtqCflqr2e cE1fCn3+GERgrAQ5pGI9nI0q VRUpBsL1GDnhU762NoIlhSFs Pjxj q3qys3czoDd8KoX7ZIThteRm aDgtJFS7a9WuRy51Q77jOJgs YIGxMSSjBGEoBTPzpRincy5g dG9w Ii8+FCNgcWT2tTX1lU8wSrKw FsQ7XTjrN848EzGyqEAfIomz O73iF0WaxXN+NDXjErl7ZNEx dHls NS9klJOvHPiwWi5qGNG9NeYn AcNuPKbaY6NtDAMnckxgckyz vVK3OWJbLPOstD73Ob2xeCnl MTBw dTUDaH2mgktzh8bsevvcGzJr TEDqNZl5MWi4JNRjhAtdIsFa EVK5IrH7WMT7cBXksN5pkDnt bjog qS5bI9GdLSSecfgpFq27aV5d JcKbApO8BDboJjb+I7VZMrhi S88CBhoHDBBVAMlqdLV+PHRk IHN0 rJwiHDtlZRVkzM5xSHKfJ5z5 PkOsXdJ7FLsjG1DhCQBxdpas Cg66sZ3rLnKmXqV5QRkoY2Hh bnQ6 KDKqqOZhBUioGRD0H04yf8U3 UPQjYBLaEXU7aQM2tC3rtHpi bjogbGVmdDsgdmVydGljYWwt YWxp U662LLYmmAxrLfF4FmR2RbX3 MxZ9D5AqSic3BXFngEjsVQ5u jYWqSEmaJj1ytLiwuEidPD2a NTBp rvmgRORrvZ7pHUAcjXBakAjc WL5pADUdyqhhy611SjImIYI9 TCYmoIAdU1TniN2vCiTkSMDw MDAw S9VztZAtJNmyF162VZwaHnO7 ACUsqeQdW0WoQDOfuXvbBsT0 w4E6Wi48SqMHFARqailwgIV+ PHRk SEV8xAtdLZvbQJMjzP6uXGWw D4f2NuDqHcV5RJkqO0FlQMXc urirVe09uJ1fTbNiXbT9IUau O2Zv swM8BZUltVQqTLacDLJ5N94o o7Q7VTIjDLKzPXO8pLX1yR4n bGlnbjogbGVmdDsgdmVydGlj YWwt JQxlJ219EAScoFrhMtVODYKM RTwvdGQ+UWXqPTO5vXokKDft FGQokQ0tYFVaO2z5SzZkTfS1 MGlu R2AfQTNjftctOx31sU9mDgDf OkV2VSasU3UwxiZ9EBZhsOIa HCaqGCV7Q59ll5B2MAGeMBVy MDA7 lJN7cN1ycNoxevseqDQoyFvg uhYvpXfbPDoaMUfjV994JCYl tJrcTuKxT9DamypcMpIRpDNm YXRp DB71HE93TJ92Y6UoWqkdfOZu bGU+PHRhYmxlIHdpZHRoPScx MISfCuGbtTptDH7jSb5eIYFk LWNv vVmwrOHfBiXeh3oqARZrCMpi FB4bdUlcS8OekFY3YAIzk4f9 Og20Y39sM4FbfRF+PGNvbCB3 aWR0 nL7jJjFoZbB4RSgrW585IgTm jNUuVnlsg8rxt8mcfLp6HjFa HFIehpJmmTodVTY9k6IrTv74 Y29s IHdpZHRoPSIyMCUiIHZhbGln nz0hnD5mNs3+HPNgcRP3dVJ8 iH1bPwHdSvH8PAzzI812OvIh cCIv RjqrM90gP8LngQZ+PHRyPjx0 BNYxvPzyHR1pkOMmJJivIc8r JVV1RlMqVhMiXKdcY7MePADm bmct ajsdnKA8VDUuSCIumA26Lu9g aIifAr4vVRHnQKM8SSYrlESe J5QtsP3hKpVfRZTwQABfG0Hd eHQt YHeyL675PExfVqX1ZTGxbaAa A1LnUOTvwGwbKgT7u7Q7Lc7K dTunsOInOL2tVsMvVXo6C5Vg Pjx0 BIMrdAaaEW4loGZbOFbhSx2n uAyxuVksEY9wSXZxqgexv500 UmVne5vjJNTqdHFfNEshKID9 Y29s c9U7QOAyTMVtOEK7xQJ9oD3h bGlnbjogbGVmdDsgdmVydGlj WDbaAZbcM458WDMliYzqYfQR Tjo8 N5SnUbk5GHUgeDzeWH2mpIRb FFlrDt3wdOhybQftLW1nAIPs kckvj978BpKcj4grDUWssUOt VGlt IPS7M55km2A9PLSdGRMfBZU8 yMA3sI6gvQvoycvgbDTjcVpm vhEkvUgzWZqkNVprM261HPEn cDsn Kk2LIcn1H7KmLmj5JDXfdNkf OS6wwCIiZUbvHg4ywHcgqDym IB5dSKTgkjriy843GdNlb9dq IDEw pXHrAKziDHK0R16wh7Q3GMZr VOWyZYH3wNX1dD9fbDbvujgr bGVmdDsgdmVydGljYWwtYWxp Z246 IHRvcDsnPlBheWVyOjwvdGQ+ RK08bw44M1RfPdcfGnn2DDJf JDT5vVT5bF1uTQPxBFahp4Q7 bGU9 J2J (more content not included)... [facility] Coding Summaryon 06-10-2023 Coding Summary HTMLBase 64 KketdquxPOt1bZl+PGhlYWQ+ YM7RCQUsM11ewSPeqB1zY6MQ TElOSywgQVBQTElOSyIgbmFt TT2riDLnMGAd IC8+BU9mZQLiKelmqKOtl7A0 gNG9P86mbh6pUAugbQX6THCn CoRieyeqs3gpgZg8QFisTsdr OyBt KWQqtF25ZMT5hH12Dg02pVHs jUBbk6rqyVh0VsMoJIZoDRQ3 dSibHHfjj7FtNLVvS98yiZHe c2U6 ZQRjhExesMYiTtNnbUA9yB4u DYueurytz0xrgqmjUnn7uh81 zWUtk8E4fZX8M5PlavC1JRHe bGQg XfoqzLYJwV8qogwsb1xmznjp YaEfFXGqYNv5UBh9EIOgyJnv ShTrRS48KSQ8WLVhaiYbQ9Dv LWFs zHtqCtD5f7K1Ud5NM5IMRqqd F9WFCCZONTrpoDA+EY58rd94 N4RhEtioEil5MITtGUJ4jAA1 aD0n RDFiOZwdz4Z5vGG3O9NyisMr jp9rq9zlIJYpZJqnW85ngCAe t4Y1NYOsyHI4CHIsrPtoHqMu aG93 Oyc+KCLbzIpqs6InGmtti6me w5wzcJc8ZlyzCHVewgBkcOlb YPS3u1RrSm6zEYQvwUI5jGT5 aD0i PyEeEhC7LJzpK100QmHqrCPs OgyzI25zP2QczIT+PHRyPjx0 GECllYbbRW8xI2UlYCAxfxsn bGVm vHmgTM8rGOOkykaeIGHjkA9z EDTaB3u3DlEkGiP9MLcdY1Af QKFngawgMb20kQ1yUtXmBaK7 MGlu G8QcalS6JPTbxKAcHYmgIWY7 C46ul4J6HZRvNYSrZYK2iEN6 pT2klTusskefkWKrrSdsiaEy dGlj ZDabCPubF825HSPpiLrxGiYa ZGluZyBEYXRlOiAgMDgvMTcv MjAyMzwvdGQ+SZDnIDQ9nKag PSAn hXDsVSyuBz1lbKmeoAoqJX1q QEBdgrzoLERblL5hQJVjcUMq uHfdJS1hOIShdhezf041DuKi MHB0 QALecHZvG2UgvH9kYcPmYKWw OGTmD1NvyHVmZFnmV648STcj XiM5POOtqrCwK3LlTUXjxYhk OiB0 l0I5At8Qj0JitnheZ1VjlAOk KhIhLivuNIi9S1IaJyvbfDF+ NT77WPSlMQ45BWl3QFI9rVdx PSdi UOUpO9LlsG8hOuFqIGPaLTJv Oyc+PHRhYmxlIHdpZHRoPScx PNLuKaJmnQyoQY0jAg8vHUTs LWNv hOjvlREaPwRku1tfEESpULzj JO3cuDirC0ZjzEF8SXGsh0u6 Jk84B47tM9OjcKM+PGNvbCB3 aWR0 iO4ePgJiFhV9EIzlF134DzLq gHVrKqcrz4eca3gbyXq4JvY8 AXFezwStlYbmBAE3n9FtYk01 Y29s IHdpZHRoPSIxNSUiIHZhbGln eh0mdI7eRw7+PWUgcDW0fFO7 jO9tDeIiBgG7LHgwD268ExLg cCIv Fcmqc6sxk5tvqDi4RdChCKVd phBunCvhKWN6v3PuZu78P7Vj sDbzt9PoRjj4xi32jWAao4D6 bGU9 K9TqKYYawmqvgVGavBgaGC1p IOJpuqnhIKPwzV2sGXPeR3j7 VqFtLmT8JBqxB5WlkyI0DMJe bGQg YAEemJNMzR9qybqme5zhbcey XtIvOALrCRg5DYx3GDQqyOof WfRbDDL8XcU3MAK3yYUtiX1q bGln slhejV5uVaj+TFX2nXAgjQUK WO9kTzpqaMS+HPIqVXU7sStb JUmyHSNnhL6eJXGlT2o4PxGq LjA1 FCieO3GonpK5ZNBqvRGkOBYx yTHNbW6mncrqf6jkxvvhGiNh KIAlHFc4PIa6CBYsiUghZaIj ZWZ0 MwW3LFD7pNZyiQ1fxSirktip tS5gRps+OdxqaOrcXXJ7SLl4 G6JhGtp8RHRvvSuoIA3xpQOj ZGlu Nf1wjYyciZdbMX7dCFCuhpat b043LnEea2llDIKxkRQhZDxn HXO8U46az6B8SFZsRPReAHE4 dGV4 mH8kmBxcexszsANheLwufsTo aUigELrpVLkyZ980RLXvhMza HoUrRYo5U5YiOun1DCXmkRit ZT0n oUOsJRhmZj2auNzjzWiuYK6n LIYllqaav967VdJnq2heHVBs qXEjCOvvUDQ8L02ed6N8YIQy MDAw EQN6nZL5rF0suGmiaocosQEt cUswgnGhnPpsPZelZScxI910 ARNzvKkjMsRcuUj2I4GwKjo8 ZCBz dAvxVS6zkFKsCWszGa3pxQgj gVkgJG9qTDHbijmyf799OoVr b1lqHFGnwFWwGAihTVN5K48e b3I6 GAToMGOaKME2nGG3fQ6akWsa bjogbGVmdDsgdmVydGljYWwt JBooT429VAYmeYvhJpWrlTgc bnQg VFrqOSl4W5CqJgswyUG+PC90 HCCwSJ55mQAtlUNhq6nrsCm4 TqSrNBHgGOA5pFjrHDqlm2Mu ZXIt Y28wfLLpu1N7KDFhxPznbLAd PyKhlDU2jT7bQXgwlohys2gl zmpcRther4xqpr21nY82E00a IHdp ULNfZKGrVUMtOAJjxEmfvs7i dH2qGs0+UOSbkGL5gJV1zS9r UNLtFdC9IKezL909VeSfrGYg Pjxj q8kic5ifyTa2HcN8EZOotpHj uRezWHY2w6RrKi51W29wOKtn PTImQHVcTYAwTAHesLpcfi7c dG9w Ii8+WMBevOI2uHN5pD1uJdJd PzZ3ECfyS376CyRdjERmPvqt N07zL9OlxOI+TFTvZjk8QTSu dHls JU1ttQRdISbcVz7yMLO1UyUq FvSdSYkmP4EyJRRbhlccdfhp jRN9AELyRFZyuN56Dj7zbFzm MTBw tASKpW7rxeycj6sqxbysDkQh MOBpSHd3QVo0ZWXjdBtvFeUh QUX3ZrH1ZZW9wUSwkO4hiFrq bjog dU7kB2BfQATvpfjzXi48uT0t NkDjDoR1QRbmFsa+M5REMbxv J81YPhnTEDDVHRjkdJO+PHRk IHN0 zWfsLKflXQMthE6oDWKiE6s6 SqEnZvX3KNczZ7IhDMSisjog Fu35tK8uDxBrXfU1WBxrI0Ax bnQ6 EMMmmJNpYLnsLSS1I90de6C8 CCVsIPTjDSZ4aXU3dZ1khKzj bjogbGVmdDsgdmVydGljYWwt YWxp A042BIMxwJxpJqT5ByI7IfP8 MyF7H1VoMgm9QSNzgQctQO5n nUBfKXzaOh5pzIdigXlvPA9s NTBp uyqcJOSenH3oLMUstLTokJdl YG5uZFVwswqxn245QbOeWRC0 PCUzeUDfT7LzkW2cIbLpRFZf MDAw J8RthJYqTJncC191FBexEeI0 RJWocuEgA2DwJRXwmLccVzF2 z5M2Gl16LdPMWOLzhsxdsIP+ PHRk FNX2vMzfRNydQQBdbU7vFIZd H1r1GzOrAoT4DDisC3EvSLVc cdagIh49hS7yKoWhBfQ2MAvd O2Zv elT1GJIzgXSnTJvaHQL0H44f m5K3EIReHZTwWTQ1oFC5iP4s bGlnbjogbGVmdDsgdmVydGlj YWwt JHhnR067PFNagUolYyKDNIZA RTwvdGQ+GSNnDBO2cKoaXJoe UUPuvL5hPJOyZ2c5DaGlBlV9 MGlu V0ChZULsdssmWh17tU1iUwLi ClB2TAtwK8BcrkJ7ZCDkoRMq TUxzSLU1H96ml1A4XLJjEHOa MDA7 kIR3dL5hcXevrofznFMccSwa irLmpMlhZEvxXHrhN100UWGh mAuyYs1APS98YI33K2WoJglb dGFi bGU+PHRhYmxlIHdpZHRoPScx QWWbAbCdcQpiTS0sAv4vXQSz SAVfiDhwhYZcRzIad1sdCIFr ZTsg SL2qxNxvG8LqhRW9HRKek4w0 Bq08Q65xO6IqkXH+PGNvbCB3 yAP5vX0cDtNmFpA4FRsvI171 InRv sSXjAvaro5riq8dhhMf7XtFa GLKgqwCsaUhtSMZ1r6LbVf67 G45pCSwcXXOzXSNrDTRuHVZj bGln gt7vvJ8sRl0+CBHycGV1jXP2 rT9lUgOoGhP0JQqcT973JuPz sAVtEftiL22gP2BxvVK+PHRy Pjx0 UMQitErlUE2xeRSuQXghZa4h NIP9XgIuEoAkMItnJ3JyUQPd whsfgeznmEU7ULDvVABwmL77 Zm9u pMiaEa1aIDBfJGN8SNGluTKj W1BrkP4eYcAzJKAlREXjL3Kg lRMsQRzpJ868BMrpOkR3BWOo cnRp U5CmAIBgnTsqWhM2h2N8Vd6V qLtyzWWpMA6yZeSuFAg9P5Cx Xvt4BUIsvMepOA5jnRFuFLsi Zy1y xJevxBftTJ3aKFUqdtrql106 DoSlk8mfHNRskJSyYBjsLBH9 B14vh1J5IJKgQKDePJZ3yOQ2 dC1h bGlnbjogbGVmdDsgdmVydGlj XHyaCQckI541YUKhvTcpGtOK Uiz0G7PiAeh3SOJztZiwNE1e cGFk NHbeXy7wrQeguFxaDL4iAGXo gpddi162EiKuh7cuFTQocBYi YGbhFKC0P59yp3S4VQZoKCGu MDA7 dLS3mN7kpZgbpmwqxUEnuOuz rzNgsGfqMBevWBynT045MKYb bZuoMu8XVig6P2BaMom6DTPg dHls DV1bgICtONrhJf5fmBxajQht HH2uCRJxptyxr188KnYxb4zy ALTsoNUeUQedKUP2T43hy2A0 ICMw EOAbZJN7tXG1xS9owLvwwcmh bGVmdDsgdmVydGljYWwtYWxp Y980OQIlqQbrBkVufLXeNpwk dGQ+ PP79gh24P0YuXjkxLnd6SRHa LJU6mIR0rN4sQDUkSNklv8Q5 wWR3R9ZzluNber8it7ruLCUs ZTog Y29 (more content not included)... [facility] Consent Formson 06-08-2023 Consent Forms [id number] FF [facility] Office/Clinic Noteon 023 Office/Clinic Note Patient: SOFIA MIGUEL Age: 47 years Sex: FEMALE : 1975 Associated Diagnoses: HTN (hypertension); Neck pain; Low back pain Author: Roscoe Stout MD A History of Present Illness 47-year-old female who we have been attempting get her blood pressure down presents today with multiple complaints. Her blood pressure is much improved but she continues to have GI upset and diarrhea whenever she eats anything. This is started up since starting her medication. She is currently on amlodipine and losartan/hydrochlorothia zide. She does have an allergy to sulfa and I am wondering if she is having sensitivity to the hydrochlorothiazide component. She is also complaining of right shoulder and neck pain and low back pain. She gets numbness and tingling radiating down her right arm. She is left-hand dominant correction to previous office note where I stated she was epdci-xbno-sycozspb. At work she works in the [employer]. She does a lot of repetitive movements a lot of cleaning and lifting. She is also having left low back pain that radiates into her left hip. We have tried conservative treatment such as anti-inflammatories and steroids with no improvement. At this point no imaging studies have been done. She has not been to work since May 30 because she is unable to stand for long periods of time and do her activities at work because of pain. Review of Systems Constitutional: Negative. Respiratory: Negative. Cardiovascular: Negative except as documented in history of present illness. Musculoskeletal: Negative except as documented in history of present illness. Health Status Allergies: Allergic Reactions (Selected) Severity Not Documented Acetaminophen-oxyCODONE- No reactions were documented. Bactrim- Rash. Cefaclor- No reactions were documented. Septra- No reactions were documented. Sulfa drug- No reactions were documented., Allergies (5) Active Severity Reaction acetaminophen-oxyCODONE None Documented cefaclor None Documented Septra None Documented sulfa drug None Documented Bactrim Rash Current medications: (Selected) Prescriptions Prescribed ALPRAZolam 0.5 mg oral tablet: 0.5 mg = 1 tab(s), PO, BID, PRN: as needed for anxiety, 60 tab(s), 2 Refill(s) Eliquis 5 mg oral tablet: See Instructions, TAKE ONE TABLET BY MOUTH TWICE A DAY, 60 tab(s), 5 Refill(s) Potassium Chloride (Eqv-K-Tab) 20 mEq oral tablet, extended release: See Instructions, TAKE ONE TABLET BY MOUTH TWICE A DAY, 60 tab(s), 5 Refill(s) Ventolin HFA 90 mcg/inh inhalation aerosol: 2 puff(s), INH, q4hr, PRN: NEEDED FOR WHEEZING, 18 gm, 0 Refill(s) amLODIPine 10 mg oral tablet: 1 tab(s), PO, Daily, 30 tab(s), 0 Refill(s) cetirizine 10 mg oral tablet: 1 tab(s), PO, Daily, 30 tab(s), 3 Refill(s) ferrous sulfate 325 mg (65 mg elemental iron) oral delayed release tablet: 1 tab(s), PO, Daily, 30 tab(s), 2 Refill(s) hydrochlorothiazide-losa rtan 25 mg-100 mg oral tablet: 1 tab(s), PO, Daily, 90 tab(s), 3 Refill(s) tiZANidine 4 mg oral tablet: 1 tab(s), PO, Once a day (at bedtime), 30 tab(s), 0 Refill(s), Home Medications (9) Active ALPRAZolam 0.5 mg oral tablet 0.5 mg = 1 tab(s), PRN, PO, BID amLODIPine 10 mg oral tablet 1 tab(s), PO, Daily cetirizine 10 mg oral tablet 1 tab(s), PO, Daily Eliquis 5 mg oral tablet See Instructions ferrous sulfate 325 mg (65 mg elemental iron) oral delayed release tablet 1 tab(s), PO, Daily hydrochlorothiazide-losa rtan 25 mg-100 mg oral tablet 1 tab(s), PO, Daily Potassium Chloride (Eqv-K-Tab) 20 mEq oral tablet, extended release See Instructions tiZANidine 4 mg oral tablet 1 tab(s), PO, Once a day (at bedtime) Ventolin HFA 90 mcg/inh inhalation aerosol 2 puff(s), PRN, INH, q4hr Problem list (past medical history): Active Problems (8) Anxiety asthma HTN (hypertension) Hyperlipidemia ALVINO on CPAP Psoriasis Tobacco use Venous insufficiency (chronic) (peripheral) Physical Examination VS/Measurements Vital Signs 06/07/2023 13:43 EDT Peripheral Pulse Rate 71 bpm Systolic Blood Pressure 130 mmHg Diastolic Blood Pressure 80 mmHg SpO2 98 % , Measurements from flowsheet : Measurements 06/07/2023 13:43 EDT Height 162.56 cm Height/Length Measured (inches) 64 in Weight 96.16 kg Weight Measured (lbs) 211.996 lb Body Mass Index 36.39 kg/m2 Erin Body Weight Calculated 54.7 kg BSA Measured 2.08 m2 General: Alert and oriented, No acute distress. Respiratory: Lungs are clear to auscultation, Respirations are non-labored, Breath sounds are equal. Cardiovascular: Normal rate, Regular rhythm, No murmur, Good pulses equal in all extremities. Musculoskeletal: Limited range of motion of the neck secondarily to pain. She is slow moving with gait. Slight limp on the left.. Neurologic: Alert, Oriented. Impression and Plan Diagnosis HTN (hypertension) ([id number]). Plan: Blood pressure is improved but wondering if she is having side effects on the medication. Contin (more content not included)... Normal [facility] XR Spine Cervical 6 or More Viewson 06-07-2023 XR Spine Cervical 6 or More Views CLINICAL HISTORY: Generalized neck pain and stiffness for 1 month. COMPARISON: [None.] RESULT: There is straightening of the normal lordosis. [No acute fracture is seen.] [Vertebral body heights are maintained.] [Disc spaces are maintained.] [No prevertebral soft tissue swelling.] There is mild to moderate bilateral osseous neuroforaminal narrowing at C3-4 and C4-5. IMPRESSION: [ 1. Mild to moderate bilateral osseous neuroforaminal narrowing at C3-4 and C4-5. 2. No acute cervical spine abnormality seen.] Final Signed (Electronic Signature): Kash Castillo MD 06/08/23 12:36 p Technologist: [facility] XR Spine Lumbosacral Minimum 4 Viewson 06-07-2023 XR Spine Lumbosacral Minimum 4 Views CLINICAL HISTORY: Low back pain. COMPARISON: [None.] RESULT: [Counting Reference: L4-L5 is the level of the iliac crest.] [5 lumbar type vertebral bodies] [Alignment anatomic.] [No acute fracture.] No spondylolysis or spondylolisthesis. [Vertebral body heights maintained.] [Disc spaces maintained.] There is facet hypertrophy at L5-S1. [Sacrum appears intact.] [Sacroiliac joints and visualized pelvis intact.] [Visualized hips unremarkable.] Aortic calcifications are noted. [No other significant abnormality.] IMPRESSION: 1. Facet hypertrophy at L5-S1. 2. [No acute findings.] Final Signed (Electronic Signature): Kash Castillo MD 06/08/23 12:37 p Technologist: [facility] Office/Clinic Noteon 023 Office/Clinic Note Patient: SOFIA MIGUEL Age: 47 years Sex: FEMALE : 1975 Associated Diagnoses: HTN (hypertension); Strain of right shoulder; Low back pain Author: Roscoe Stout MD A History of Present Illness 47-year-old female here follow-up elevated blood pressure. We switched her blood pressure medications around and added amlodipine. Her blood pressure is much improved today. Although she states that it does upset her stomach and she feels slightly nauseated after taking the medication. Within about 3 to 4 hours those symptoms will resolve. She is also complaining of left low back pain and right shoulder pain. She states she was lying in bed 3 days ago and rolled over because her left hip was bothering her and when she did that she felt a pop in her right shoulder and that has been hurting since. She is right-hand dominant. She has full range of motion of the right upper extremity but does have soreness. She did not go to work yesterday. Review of Systems Respiratory: No shortness of breath, No cough, No sputum production. Cardiovascular: No chest pain, No palpitations, No bradycardia. Musculoskeletal: Back pain, Joint pain. Health Status Allergies: Allergic Reactions (Selected) Severity Not Documented Acetaminophen-oxyCODONE- No reactions were documented. Bactrim- Rash. Cefaclor- No reactions were documented. Septra- No reactions were documented. Sulfa drug- No reactions were documented., Allergies (5) Active Severity Reaction acetaminophen-oxyCODONE None Documented cefaclor None Documented Septra None Documented sulfa drug None Documented Bactrim Rash Current medications: (Selected) Prescriptions Prescribed ALPRAZolam 0.5 mg oral tablet: 0.5 mg = 1 tab(s), PO, BID, PRN: as needed for anxiety, 60 tab(s), 2 Refill(s) Advair Diskus 250 mcg-50 mcg inhalation powder: 1 puff(s), INH, BID, for 30 day(s), 60 EA, 2 Refill(s) Eliquis 5 mg oral tablet: See Instructions, TAKE ONE TABLET BY MOUTH TWICE A DAY, 60 tab(s), 5 Refill(s) Potassium Chloride (Eqv-K-Tab) 20 mEq oral tablet, extended release: See Instructions, TAKE ONE TABLET BY MOUTH TWICE A DAY, 60 tab(s), 5 Refill(s) Ventolin HFA 90 mcg/inh inhalation aerosol: 2 puff(s), INH, q4hr, PRN: NEEDED FOR WHEEZING, 18 gm, 0 Refill(s) albuterol 90 mcg/inh inhalation aerosol: 2 puff(s), INH, q4hr, PRN: for wheezing, 8 gm, 0 Refill(s) amLODIPine 10 mg oral tablet: 10 mg = 1 tab(s), PO, Daily, 30 tab(s), 6 Refill(s) aspirin 81 mg oral delayed release tablet: 81 mg = 1 tab(s), PO, Daily, 30 tab(s), 0 Refill(s) cetirizine 10 mg oral tablet: 1 tab(s), PO, Daily, 30 tab(s), 3 Refill(s) cetirizine 10 mg oral tablet: See Instructions, TAKE ONE TABLET BY MOUTH DAILY, 30 tab(s), 5 Refill(s) ferrous sulfate 325 mg (65 mg elemental iron) oral delayed release tablet: 1 tab(s), PO, Daily, 30 tab(s), 2 Refill(s) furosemide 40 mg oral tablet: 40 mg = 1 tab(s), PO, BID, 180 tab(s), 3 Refill(s) hydrochlorothiazide-losa rtan 25 mg-100 mg oral tablet: 1 tab(s), PO, Daily, 30 tab(s), 9 Refill(s) hydrochlorothiazide-losa rtan 25 mg-100 mg oral tablet: 1 tab(s), PO, Daily, 90 tab(s), 3 Refill(s) lisinopril 40 mg oral tablet: 1 tab(s), PO, Daily, 90 tab(s), 3 Refill(s) predniSONE 20 mg oral tablet: 40 mg = 2 tab(s), PO, BID, for 5 day(s), 20 tab(s), 0 Refill(s) tiZANidine 4 mg oral tablet: 1 tab(s), PO, Once a day (at bedtime), 30 tab(s), 0 Refill(s) Documented Medications Documented DilTIAZem (Eqv-Cardizem CD) 360 mg/24 hours oral capsule, extended release: 360 mg = 1 cap(s), PO, Daily, 0 Refill(s) ibuprofen 400 mg oral tablet: 400 mg = 1 tab(s), PO, q6hr (int), PRN: for pain, 60 tab(s), 0 Refill(s) omeprazole 20 mg oral delayed release capsule: 20 mg = 1 cap(s), PO, Daily, 30 cap(s), 0 Refill(s) simvastatin 20 mg oral tablet: 20 mg = 1 tab(s), PO, Once a day (at bedtime), Home Medications (21) Active Advair Diskus 250 mcg-50 mcg inhalation powder 1 puff(s), INH, BID albuterol 90 mcg/inh inhalation aerosol 2 puff(s), PRN, INH, q4hr ALPRAZolam 0.5 mg oral tablet 0.5 mg = 1 tab(s), PRN, PO, BID amLODIPine 10 mg oral tablet 10 mg = 1 tab(s), PO, Daily aspirin 81 mg oral delayed release tablet 81 mg = 1 tab(s), PO, Daily cetirizine 10 mg oral tablet 1 tab(s), PO, Daily cetirizine 10 mg oral tablet See Instructions DilTIAZem (Eqv-Cardizem CD) 360 mg/24 hours oral capsule, extended release 360 mg = 1 cap(s), PO, Daily Eliquis 5 mg oral tablet See Instructions ferrous sulfate 325 mg (65 mg elemental iron) oral delayed release tablet 1 tab(s), PO, Daily furosemide 40 mg oral tablet 40 mg = 1 tab(s), PO, BID hydrochlorothiazide-losa rtan 25 mg-100 mg oral tablet 1 tab(s), PO, Daily hydrochlorothiazide-losa rtan 25 mg-100 mg oral tablet 1 tab(s), PO, Daily ibuprofen 400 mg oral tablet 400 mg = 1 tab(s), PRN, PO, q6hr (int) lisinopril 40 mg oral tablet 1 tab(s), PO, Daily omeprazole 20 mg oral delayed release capsule 20 mg = 1 cap(s), PO, Da (more content not included)... Normal [facility] Vital Signs Date Time Vital Sign Value Performing Clinician Makenzie chi 01-05-2024 10:20-0400 Body height 162.6 cm [facility] 01-05-2024 10:20-0400 Diastolic blood pressure 78 mm[Hg] [facility] 01-05-2024 10:20-0400 Heart rate 70 /min Valeria Garibay MD [facility] 01-05-2024 10:20-0400 Systolic blood pressure 132 mm[Hg] Valeria Garibay MD [facility] En[facility]ters Encounter Date Encounter Type Care Provider Facility Start: 05-22-2024 End: 05-22-2024 ambulatory Roscoe Stout Facility:[facility] Start: 05-03-2024 End: 05-03-2024 Emergency department patient visit [facility] Start: 05-01-2024 End: 05-01-2024 ambulatory Roscoe Stout Facility:[facility] Start: 04-19-2024 End: 04-19-2024 ambulatory Roscoe Stout Facility:[facility] Start: 04-06-2024 End: 04-06-2024 ambulatory PA Alycia Ernandez Facility:[facility] Start: 03-29-2024 End: 03-29-2024 ambulatory PA Alycia Ernandez Facility:[facility] Start: 03-23-2024 End: 03-23-2024 ambulatory PA Alycia Ernandez Facility:[facility] Start: 03-15-2024 End: 03-15-2024 ambulatory Roscoe Stout Facility:[facility] Start: 03-14-2024 End: 03-14-2024 ambulatory PA Alycia Ernandez Facility:[facility] Start: 03-07-2024 End: 03-07-2024 ambulatory Epi R Dolce Facility:[facility] Start: 02-28-2024 End: 02-28-2024 ambulatory Epi R Dolce Facility:[facility] Start: 02-24-2024 End: 02-24-2024 ambulatory Epi R Dolce Facility:[facility] Start: 02-21-2024 End: 02-21-2024 ambulatory Epi R Dolce Facility:[facility] Start: 02-14-2024 End: 02-14-2024 ambulatory Roscoe Stout Facility:[facility] Start: 01-11-2024 End: 01-11-2024 ambulatory Roscoe Stout Facility:[facility] Start: 01-05-2024 Telephone encounter Kya camp RN [facility] Comment on above: Eliquis Start: 01-05-2024 End: 01-05-2024 ambulatory VALERIA GARIBAY [facility] Start: 01-05-2024 End: 01-05-2024 Office outpatient visit 15 minutes Valeria Garibay MD Work Phone: [facility] Comment on above: Paroxysmal A-fib ([facility] S-HCC) (Primary Dx); Essential hypertension Start: 01-04-2024 Telephone encounter Namita [facility] Start: 01-04-2024 ambulatory Roscoe Stout Facility: [facility] Start: 12-29-2023 ambulatory Roscoe Stout Facility: [facility] Start: 12-22-2023 End: 12-22-2023 ambulatory Roscoe Stout Facility:[facility] Start: 12-15-2023 End: 12-15-2023 ambulatory Roscoe Stout Facility:[facility] Start: 11-01-2023 End: 11-01-2023 ambulatory Roscoe Stout Facility:[facility] Start: 10-07-2023 End: 10-07-2023 ambulatory Roscoe Stout Facility:[facility] Start: 06-10-2023 End: 07-08-2023 ambulatory Roscoe Stout Facility:[facility] Start: 06-07-2023 End: 06-07-2023 ambulatory Roscoe Yanez Girish Facility:[facility] Start: 05-31-2023 End: 05-31-2023 ambulatory Roscoe Stout Facility:[facility] Procedures Date Procedure Procedure Detail Performing Clinician Start: 01-05-2024 Follow-up visit Follow-up VALERIA GARIBAY Start: 10-29-2020 Microscopic observat ion [Identifier] in Cervix by Cyto stain Namita Jacob MA Plan of Treatment Date Care Activity Detail Author Start: 01-05-2024 End: 01-05-2024 Patient encounter procedure 01/05/2024 10:45 AM EDT Office Visit [facility] [address] [place] [phone] Valeria Garibay MD [address] [place] [facility] [place] [phone] [facility] Start: 10-29-2023 Screening for malign ant neoplasm of cervix Pap Smear [facility] Start: 06-25-2023 Influenza vaccination Influenza Vacc ine [facility] Start: 04-02-2023 Adult BMI Screening Adult BMI Screen ing [facility] Start: 04-02-2023 Tobacco Screening Tobacco Screening [facility] Start: 1994 DTaP,Tdap and Td Vaccines (1 - Tdap) DTaP,Tdap and Td Vaccines (1 - Tdap) [facility] Start: 1987 Depression Screening Depression Scre enlaurel [facility] Start: 1975 Tobacco Counseling Tobacco Counselin josephine [facility] Immunizations Immunization Date Immunization Notes Care Provider Fa candida 08-26-2020 influenza virus vaccine, unspecified formulation Namita Jacob MA [facility] Payers Date Payer Category Payer Self-pay 2022 Medicaid [id number] 2022 Private Health Insurance [id number] 2022 Medicaid [id number] 1975 Unknown [id number] 2.16.8 40.1.399559.3.579.2.1286 1975 Unknown [id number] 2.16.8 40.1.213710.3.579.2. 1975 Unknown [id number] 2.16.8 40.1.453804.3.579.2. 1975 Unknown [id number] 2.16.8 40.1.197188.3.579.2. 1975 Unknown [id number] 2.16.8 40.1.130127.3.579.2. 1975 Unknown [id number] 2.16.8 40.1.096249.3.579.2. 1975 Unknown [id number] 2.16.8 40.1.967410.3.579.2. 1975 Unknown [id number] 2.16.8 40.1.438697.3.579.2. 1975 Unknown [id number] 2.16.8 40.1.730044.3.579.2. 1975 Unknown [id number] 2.16.8 40.1.135787.3.579.2. 1975 Unknown [id number] 2.16.8 40.1.422107.3.579.2. 1975 Unknown [id number] 2.16.8 40.1.072074.3.579.2. 1975 Unknown [id number] 2.16.8 40.1.111352.3.579.2. 1975 Unknown [id number] 2.16.8 40.1.227861.3.579.2. 1975 Unknown [id number] 2.16.8 40.1.219512.3.579.2 1975 Unknown [id number] 2.16.8 40.1.198506.3.579.2. 1975 Unknown [id number] 2.16.8 40.1.852701.3.579.2 1975 Unknown [id number] 2.16.8 40.1.466268.3.579.2 1975 Unknown [id number] 2.16.8 40.1.395209.3.579.2 1975 Unknown [id number] 2.16.8 40.1.896473.3.579.2. 1975 Unknown [id number] 2.16.8 40.1.807840.3.579.2. 1975 Unknown [id number] 2.16.8 40.1.531158.3.579.2. 1975 Unknown [id number] 2.16.8 40.1.231792.3.579.2. 1975 Unknown [id number] 2.16.8 40.1.314940.3.579.2. 1975 Unknown [id number] 2.16.8 40.1.228079.3.579.2. 1975 Unknown [id number] 2.16.8 40.1.443670.3.579.2 1975 Unknown [id number] 2.16.8 40.1.264527.3.579.2.718 1975 Unknown [id number] 2.16.8 40.1.135389.3.579.2.718 1975 Unknown [id number] 2.16.8 40.1.890326.3.579.2.718 1975 Unknown [id number] 2.16.8 40.1.241810.3.579.2.718 Social History Date Type Detail Facility [facility]: [facility] End: 05-24-2020 History of tobacco use Cigarette Smoker [facility] Start: 11-06-2020 End: 04-02-2022 Cigarettes smoked current (pack per day) - Reported 0.5 [facility] Start: 04-02-2022 Tobacco use and exposure Smokeless tobacco non-user [facility] Start: 12-28-2023 Alcohol intake Current drinke r of alcohol (finding) [facility] Start: 11-06-2020 End: 12-28-2023 Tobacco use panel [facility] Childcare Unknown [facility] Start: 1975 Sex Assigned At Not on file P [facility] Clinical Notes 06-07-2023 to 05-03-2024 Telephone Encounter - Kya Johnson RN - 01/05/2024 2:56 PM EDTTelephone Encounter - Kya Johnson RN - 01/05/2024 2:56 PM Stephy Garibay MD - 01/05/2024 10:45 AM EDT Note Date & Type Note Facility 05-03-2024 Note Education Materials Cardiovascular Hypertension, Adult Blood pressure 149/109 Your blood pressure was noted to be elevated here in the emergency room. Monitor your blood pressure and follow-up with your primary care physician to review those readings. Return to the emergency department for any worsening symptoms. Hypertension is another name for high blood pressure. High blood pressure forces your heart to work harder to pump blood. This can cause problems over time. There are two numbers in a blood pressure reading. There is a top number (systolic) over a bottom number (diastolic). It is best to have a blood pressure that is below 120/80. What are the causes? The cause of this condition is not known. Some other conditions can lead to high blood pressure. What increases the risk? Some lifestyle factors can make you more likely to develop high blood pressure: ? Smoking. ? Not getting enough exercise or physical activity. ? Being overweight. ? Having too much fat, sugar, calories, or salt (sodium) in your diet. ? Drinking too much alcohol. Other risk factors include: ? Having any of these conditions: ? Heart disease. ? Diabetes. ? High cholesterol. ? Kidney disease. ? Obstructive sleep apnea. ? Having a family history of high blood pressure and high cholesterol. ? Age. The risk increases with age. ? Stress. What are the signs or symptoms? High blood pressure may not cause symptoms. Very high blood pressure (hypertensive crisis) may cause: ? Headache. ? Fast or uneven heartbeats (palpitations). ? Shortness of breath. ? Nosebleed. ? Vomiting or feeling like you may vomit (nauseous). ? Changes in how you see. ? Very bad chest pain. ? Feeling dizzy. ? Seizures. How is this treated? ? This condition is treated by making healthy lifestyle changes, such as: ? Eating healthy foods. ? Exercising more. ? Drinking less alcohol. ? Your doctor may prescribe medicine if lifestyle changes do not help enough and if: ? Your top number is above 130. ? Your bottom number is above 80. ? Your personal target blood pressure may vary. Follow these instructions at home: Eating and drinking ? If told, follow the DASH eating plan. To follow this plan: ? Fill one half of your plate at each meal with fruits and vegetables. ? Fill one fourth of your plate at each meal with whole grains. Whole grains include whole-wheat pasta, brown rice, and whole-grain bread. ? Eat or drink low-fat dairy products, such as skim milk or low-fat yogurt. ? Fill one fourth of your plate at each meal with low-fat (lean) proteins. Low-fat proteins include fish, chicken without skin, eggs, beans, and tofu. ? Avoid fatty meat, cured and processed meat, or chicken with skin. ? Avoid pre-made or processed food. ? Limit the amount of salt in your diet to less than 1,500 mg each day. ? Do not drink alcohol if: ? Your doctor tells you not to drink. ? You are , may be , or are planning to become . ? If you drink alcohol: ? Limit how much you have to: ? 0?1 drink a day for women. ? 0?2 drinks a day for men. ? Know how much alcohol is in your drink. In the [place] one drink equals one 12 oz bottle of beer (355 mL), one 5 oz glass of wine (148 mL), or one 1? oz glass of hard liquor (44 mL). Lifestyle ? Work with your doctor to stay at a healthy weight or to lose weight. Ask your doctor what the best weight is for you. ? Get at least 30 minutes of exercise that causes your heart to beat faster (aerobic exercise) most days of the week. This may include walking, swimming, or biking. ? Get at least 30 minutes of exercise that strengthens your muscles (resistance exercise) at least 3 days a week. This may include lifting weights or doing Pilates. ? Do not smoke or use any products that contain nicotine or tobacco. If you need help quitting, ask your doctor. ? Check your blood pressure at home as told by your doctor. ? Keep all follow-up visits. Medicines ? Take uosz-aqc-ibkucle and prescription medicines only as told by your doctor. Follow directions carefully. ? Do not skip doses of blood pressure medicine. The medicine does not work as well if you skip doses. Skipping doses also puts you at risk for problems. ? Ask your doctor about side effects or reactions to medicines that you should watch for. Contact a doctor if: ? You think you are having a reaction to the medicine you are taking. ? You have headaches that keep coming back. ? You feel dizzy. ? You have swelling in your ankles. ? You have trouble with your vision. Get help right away if: ? You get a very bad headache. ? You start to feel mixed up (confused). ? You feel weak or numb. ? You feel faint. ? You have very bad pain in your: ? Chest. ? Belly (abdomen). ? You vomit more than once. ? You have trouble breathing. These symptoms may be an e (more content not included)... [facility] 05-01-2024 Note Entered by Beau Torres LPN on May 01, 2024 11:45:16 EDT From: Radha Torres LPN To: [facility] [id number] Sent: 05/01/2024 11:45:16 EDT Subject: Medication Management Submitted: Complete:cetirizine (cetirizine 10 mg oral tablet) Signed by Radha Torres LPN 05/01/2024 11:45:00 EDT Approved with modifications: cetirizine (CETIRIZINE HCL 10 MG TABLET) TAKE ONE TABLET BY MOUTH DAILY Qty: 90 tab(s) Days Supply: 90 Refills: 2 Substitutions Allowed Route To Pharmacy - [facility] [id number] Signed by Radha Torres LPN Patient matched by Radha Torres LPN on 05/01/2024 11:44:14 EDT From: [facility] [id number] To: Roscoe Stout MD Sent: April 28, 2024 7:41:38 PM CDT Subject: Medication Management Due: April 29, 2024 12:07:03 AM CDT On Hold Pending Signature Drug: cetirizine (cetirizine 10 mg oral tablet), TAKE ONE TABLET BY MOUTH DAILY Quantity: 90 tab(s) Days Supply: 0 Refills: 0 Substitutions Allowed Notes from Pharmacy: Dispensed Drug: cetirizine (cetirizine 10 mg oral tablet), TAKE ONE TABLET BY MOUTH DAILY Quantity: 90 tab(s) Days Supply: 90 Refills: 0 Substitutions Allowed Notes from Pharmacy: [facility] 03-22-[address]ios on March 22, 2024 11:30:33 EDT From: Ave Palacios To: [facility] [id number] Sent: 03/22/2024 11:30:33 EDT Subject: Medication Management Submitted: Complete:hydrochlorothiazide-lo sartan (hydrochlorothiazide-losartan 25 mg-100 mg oral tablet) Signed by Ave Palacios 03/22/2024 11:30:00 EDT Approved with modifications: hydrochlorothiazide-losartan (LOSARTAN-HCTZ 100-25 MG TAB) TAKE 1 TABLET BY MOUTH DAILY Qty: 90 tab(s) Days Supply: 90 Refills: 3 Substitutions Allowed Route To Pharmacy - [facility] [id number] Signed by Ave Palacios From: [facility] [id number] To: Roscoe Stout MD Sent: March 22, 2024 9:44:10 AM CDT Subject: Medication Management Due: March 23, 2024 12:07:50 AM CDT On Hold Pending Signature Drug: hydrochlorothiazide-losartan (hydrochlorothiazide-losartan 25 mg-100 mg oral tablet), TAKE 1 TABLET BY MOUTH DAILY Quantity: 90 tab(s) Days Supply: 0 Refills: 2 Substitutions Allowed Notes from Pharmacy: Dispensed Drug: hydrochlorothiazide-losartan (hydrochlorothiazide-losartan 25 mg-100 mg oral tablet), TAKE 1 TABLET BY MOUTH DAILY Quantity: 90 tab(s) Days Supply: 90 Refills: 0 Substitutions Allowed Notes from Pharmacy: [facility] 02-07-[address] Palacios on February 07, 2024 16:06:40 EDT From: Ave Palacios To: [facility] [id number] Sent: 02/07/2024 16:06:40 EDT Subject: Medication Management Approved with modifications: apixaban (ELIQUIS 5 MG TABLET) TAKE ONE TABLET BY MOUTH TWICE A DAY Qty: 60 tab(s) Days Supply: 30 Refills: 5 Substitutions Allowed Route To Pharmacy - [facility] [id number] Signed by Ave Palacios From: [facility] [id number] To: Roscoe Stout MD Sent: February 06, 2024 5:58:25 AM CDT Subject: Medication Management Due: February 07, 2024 12:31:37 AM CDT On Hold Pending Signature Drug: apixaban (Eliquis 5 mg oral tablet), TAKE ONE TABLET BY MOUTH TWICE A DAY Quantity: 60 tab(s) Days Supply: 0 Refills: 0 Substitutions Allowed Notes from Pharmacy: Dispensed Drug: apixaban (Eliquis 5 mg oral tablet), TAKE ONE TABLET BY MOUTH TWICE A DAY Quantity: 60 tab(s) Days Supply: 30 Refills: 0 Substitutions Allowed Notes from Pharmacy: [facility] 02-02-[address] Palacios on February 02, 2024 14:29:48 EDT From: Ave Palacios To: [facility] [id number] Sent: 02/02/2024 14:29:48 EDT Subject: Medication Management Approved with modifications: potassium chloride (POTASSIUM CHLORIDE ER 20 MEQ TABLET) TAKE ONE TABLET BY MOUTH TWICE A DAY Qty: 60 tab(s) Days Supply: 30 Refills: 5 Substitutions Allowed Route To Pharmacy - [facility] [id number] Signed by Ave Palacios From: [facility] [id number] To: Roscoe Stout MD Sent: February 02, 2024 5:28:42 AM CDT Subject: Medication Management Due: February 03, 2024 12:10:32 AM CDT On Hold Pending Signature Drug: potassium chloride (Potassium Chloride (Eqv-K-Tab) 20 mEq oral tablet, extended release), TAKE ONE TABLET BY MOUTH TWICE A DAY Quantity: 60 tab(s) Days Supply: 0 Refills: 0 Substitutions Allowed Notes from Pharmacy: Dispensed Drug: potassium chloride (Potassium Chloride (Eqv-K-Tab) 20 mEq oral tablet, extended release), TAKE ONE TABLET BY MOUTH TWICE A DAY Quantity: 60 tab(s) Days Supply: 30 Refills: 0 Substitutions Allowed Notes from Pharmacy: [facility] 01-10-[address] Palacios on January 10, 2024 09:40:46 EDT From: Ave Palacios To: [facility] [id number] Sent: 01/10/2024 09:40:46 EDT Subject: Medication Management Submitted: Complete:apixaban (Eliquis 5 mg oral tablet) Signed by Ave Palacios 01/10/2024 09:40:00 EDT Approved with modifications: apixaban (ELIQUIS 5 MG TABLET) TAKE ONE TABLET BY MOUTH TWICE A DAY Qty: 60 tab(s) Days Supply: 30 Refills: 0 Substitutions Allowed Route To Pharmacy - [facility] [id number] Signed by Ave Palacios From: [facility] [id number] To: Roscoe Stout MD Sent: January 09, 2024 2:07:29 PM CDT Subject: Medication Management Due: January 10, 2024 12:04:17 AM CDT On Hold Pending Signature Drug: apixaban (Eliquis 5 mg oral tablet), TAKE ONE TABLET BY MOUTH TWICE A DAY Quantity: 60 tab(s) Days Supply: 0 Refills: 0 Substitutions Allowed Notes from Pharmacy: Dispensed Drug: apixaban (Eliquis 5 mg oral tablet), TAKE ONE TABLET BY MOUTH TWICE A DAY Quantity: 60 tab(s) Days Supply: 30 Refills: 0 Substitutions Allowed Notes from Pharmacy: [facility] 01-05-2024 Miscellaneous Notes Formattin g of this note might be different from the original. Images from the original note were not included. documented in this encounter [facility] 01-05-2024 Telephone encount er Note Images from the original note were not included. [facility] 01-05-2024 History of Presen t illness Narrative Sofia Radford Jarrett Date of visit: 01/05/2024 Date of : 1975 Age: 48 y.o. Patient Active Problem List Diagnosis Obesity (BMI 30-39.9) Paroxysmal A-fib ([facility] Chest pain Mixed hyperlipidemia Essential hypertension Asthma Atrial flutter ([facility]) Postoperative hematoma of skin following non-dermatologic procedure Allergies Allergen Reactions Acetaminophen Other reaction(s): Unknown Bactrim [Sulfamethoxazole-Trimethoprim] Ceclor [Cefaclor] Oxycodone Hcl Other reaction(s): Unknown Percocet [Oxycodone-Acetaminophen] Simvastatin MUSCLE ACHES AND COULD NOT WALK UP THE STEPS Sulfa (Sulfonamide Antibiotics) Trimethoprim Other reaction(s): Unknown Current Outpatient Medications Medication Sig Dispense Refill albuterol (PROVENTIL HFA;VENTOLIN HFA) 90 mcg/actuation inhaler Inhale 2 puffs every 6 (six) hours as needed for wheezing. ALPRAZolam (XANAX) 0.5 mg tablet Take 0.5 mg by mouth 2 (two) times a day as needed. apixaban (ELIQUIS) 5 mg tablet Take 5 mg by mouth 2 (two) times a day. cetirizine (ZyrTEC) 10 mg tablet dilTIAZem CD (CARDIZEM CD) 360 MG 24 hr capsule TAKE ONE CAPSULE BY MOUTH DAILY 30 capsule 0 doxycycline (VIBRAMYCIN) 100 mg capsule ferrous sulfate 325 (65 FE) mg tablet Take 325 mg by mouth daily with breakfast. furosemide (LASIX) 40 mg tablet Take 40 mg by mouth 2 (two) times a day. ibuprofen (ADVIL,MOTRIN) 200 mg tablet Take 200 mg by mouth every 6 (six) hours as needed for pain. lisinopriL (PRINIVIL,ZESTRIL) 40 mg tablet Take 40 mg by mouth daily. potassium chloride (KLOR-CON M) 20 MEQ CR tablet Take 20 mEq by mouth 2 (two) times a day. tiZANidine (ZANAFLEX) 4 mg tablet Take 4 mg by mouth in the morning. No current facility-administered medications for this visit. No chief complaint on file. History of Present Illness Intermittent palpitations lasts about 30 minutes to 45 minutes this happens about 4 times a month it does not bother she just know she has them she has not sure if she might be in AFib or flutter at that time. She has had no lightheadedness no syncope near syncope she is active with no interference symptoms no chest pain no shortness of breath. Unfortunately she stopped her Eliquis on her own after she ran out of the pill in the prescription cost was too much. Past Medical History: Diagnosis Date Anemia Anxiety Asthma Atrial fibrillation with RVR (CMS-HCC) Back pain History of tubal ligation Hyperlipidemia Hypertension ALVINO on CPAP Psoriasis Trauma fracture of left arm Venous insufficiency (chronic) (peripheral) No data recorded No data recorded No data recorded Past Surgical History: Procedure Laterality Date APPENDECTOMY CHOLECYSTECTOMY TUBAL LIGATION TYMPANOSTOMY TUBE PLACEMENT Typical aflutter - CARTO N/A 01/19/2022 Performed by Idris Cano MD at [facility] () Family History Problem Relation Age of Onset Psoriasis Mother Hypertension Mother Diabetes type II Father Diabetes Maternal Grandmother Hypertension Maternal Grandmother Breast cancer Neg Hx Colon cancer Neg Hx Ovarian cancer Neg Hx Uterine cancer Neg Hx Social History Socioeconomic History Marital status: Spouse name: Not on file Number of children: Not on file Years of education: Not on file Highest education level: Not on file Occupational History Not on file Tobacco Use Smoking status: Every Day Packs/day: .5 Types: Cigarettes Last attempt to quit: 05/24/2020 Years since quittin.6 Smokeless tobacco: Never Substance and Sexual Activity Alcohol use: Yes Drug use: Never Sexual activity: Yes Partners: Male control/protection: Surgical Other Topics Concern Caffeine Use Yes Comment: couple cups of tea daily Social History Narrative Not on file Social Determinants of Health Financial Resource Strain: Not on file Food Insecurity: Not on file Transportation Needs: Not on file Physical Activity: Not on file Stress: Not on file Social Connections: Not on file Interpersonal Safety: Not on file Housing Instability: Not on file Review of Systems ROS CARDIOVASCULAR: Please review HPI. Physical Examination General appearance: Alert, oriented and cooperative. In no acute distress. Skin: Warm and dry to touch. Head: Normocephalic, without obvious abnormality, atraumatic. Ears, Nose, Mouth, Throat: Throat clear without erythema or exudate. Dentition intact. Eyes: Conjunctivae unremarkable, EOM intact. Neck: No JVD, No carotid bruit. Neck supple, trachea midline. Respiratory: Clear to auscultation bilaterally, no use of accessory muscles. Cardiovascular: RRR with normal S1 and S2 with no murmurs. Gastrointestinal: Soft, non-tender. Bowel sounds normal. Musculoskeletal: No peripheral edema. Neurologic: Oriented to time, person and place, affect appropriate. No focal/major motor defects noted. Psychiatric: Appropriate mood, memory and judgement. VITAL SIGNS: There were no vitals taken for this visit. No orders of the defined types were placed in this encounter. There are no discontinued medications. [id number] Score: 2 2.2% Stroke risk per year, 2.9% risk of stroke/TIA/systemic embolism IMPRESSIONS/PLAN There are no diagnoses linked to this encounter. Palpitations patient is supposed to be on anticoagulation but stopped it on her own after the cost was too much Symptomatic paroxysmal typical atrial flutter s/p RF ablation 01/19/2022 - no known recurrence [id number] = 2 on apixaban Primary hypertension Obesity Tobacco abuse Asthma Chronic lower extremity edema We gave samples of Eliquis We are working on getting some help for her I believe Xarelto is going generic in September of 2024 so hopefully we can get her to this time otherwise she will need to go on warfarin TODAYS ORDERS No orders of the defined types were placed in this encounter. FOLLOW UP No follow-ups on file. PCP: ROSCOE STOUT MD Referring Physician: Roscoe Stout MD [address] [place] [id number] Received message from Namita RICHARDSON for pollyqudemetrice samples. Pt has medicaid listed. Water Systems Engineer called [facility], pt picked up eliquis last 03/16 and paid $0. Water Systems Engineer called pt, pt states her first fill was free last year but when she went to get her next refill, the cost was $400. Pt no longer has commercial insurance and medicaid secondary. Pt states she is now strictly medicaid. Water Systems Engineer advises [facility] and try to have the elquis script run through her medicaid again and call our office to update if she has any problems. She v/u. [facility] Miscellaneous Notes Formattin g of this note might be different from the original. Left message for patient to remind them to bring their most current medication list with them to their appointment. [facility] Telephone encount er Note Left message for patient to remind them to bring their most current medication list with them to their appointment. [email or web address] 12-14-2023 Note From: [facility] [id number] To: Roscoe Stout MD Sent: December 10, 2023 5:42:37 PM [employer] Subject: Medication Management Due: December 11, 2023 12:07:59 AM [employer] On Hold Pending Signature Drug: ALPRAZolam (ALPRAZolam 0.5 mg oral tablet), TAKE 1 TABLET BY MOUTH TWICE A DAY NEEDED FOR ANXIETY Quantity: 60 tab(s) Days Supply: 0 Refills: 1 Substitutions Allowed Notes from Pharmacy: Dispensed Drug: ALPRAZolam (ALPRAZolam 0.5 mg oral tablet), TAKE 1 TABLET BY MOUTH TWICE A DAY NEEDED FOR ANXIETY Quantity: 60 tab(s) Days Supply: 30 Refills: 0 Substitutions Allowed Notes from Pharmacy: On Hold Pending Signature Drug: ALPRAZolam (ALPRAZolam 0.5 mg oral tablet), TAKE 1 TABLET BY MOUTH TWICE A DAY NEEDED FOR ANXIETY Quantity: 60 tab(s) Days Supply: 0 Refills: 1 Substitutions Allowed Notes from Pharmacy: Dispensed Drug: ALPRAZolam (ALPRAZolam 0.5 mg oral tablet), TAKE 1 TABLET BY MOUTH TWICE A DAY NEEDED FOR ANXIETY Quantity: 60 tab(s) Days Supply: 30 Refills: 0 Substitutions Allowed Notes from Pharmacy: [facility] 12-02-[address]ios on December 02, 2023 09:34:43 EST From: Ave Palacios To: [facility] [id number] Sent: 12/02/2023 09:34:43 EST Subject: Medication Management Submitted: Complete:potassium chloride (Potassium Chloride (Eqv-K-Tab) 20 mEq oral tablet, extended release) Signed by Ave Palacios 12/02/2023 09:34:00 EST Approved with modifications: potassium chloride (POTASSIUM CHLORIDE ER 20 MEQ TABLET) TAKE ONE TABLET BY MOUTH TWICE A DAY Qty: 60 tab(s) Days Supply: 30 Refills: 0 Substitutions Allowed Route To Pharmacy - [facility] [id number] Signed by Ave Palacios From: [facility] [id number] To: Roscoe Sotut MD Sent: December 02, 2023 5:28:51 AM [employer] Subject: Medication Management Due: December 03, 2023 12:05:54 AM [employer] On Hold Pending Signature Drug: potassium chloride (Potassium Chloride (Eqv-K-Tab) 20 mEq oral tablet, extended release), TAKE ONE TABLET BY MOUTH TWICE A DAY Quantity: 60 tab(s) Days Supply: 0 Refills: 4 Substitutions Allowed Notes from Pharmacy: Dispensed Drug: potassium chloride (Potassium Chloride (Eqv-K-Tab) 20 mEq oral tablet, extended release), TAKE ONE TABLET BY MOUTH TWICE A DAY Quantity: 60 tab(s) Days Supply: 30 Refills: 0 Substitutions Allowed Notes from Pharmacy: [facility] 11-01-2023 Note Entered by CASANDRA VASQUEZ on November 01, 2023 09:42:42 EST From: MILTON VASQUEZ To: [facility] [id number] Sent: 11/01/2023 09:42:41 EST Subject: Medication Management Submitted: Complete:cetirizine (cetirizine 10 mg oral tablet) Signed by MILTON VASQUEZ 11/01/2023 09:42:00 EST Approved with modifications: cetirizine (CETIRIZINE HCL 10 MG TABLET) TAKE ONE TABLET BY MOUTH DAILY Qty: 90 tab(s) Days Supply: 90 Refills: 1 Substitutions Allowed Route To Pharmacy - [facility] [id number] Signed by MILTON VASQUEZ Patient matched by MILTON VASQUEZ on 11/01/2023 09:41:50 EST From: [facility] [id number] To: Roscoe Stout MD Sent: October 31, 2023 9:19:37 PM [employer] Subject: Medication Management Due: November 01, 2023 12:24:29 AM [employer] On Hold Pending Signature Drug: cetirizine (cetirizine 10 mg oral tablet), TAKE ONE TABLET BY MOUTH DAILY Quantity: 30 tab(s) Days Supply: 0 Refills: 4 Substitutions Allowed Notes from Pharmacy: Dispensed Drug: cetirizine (cetirizine 10 mg oral tablet), TAKE ONE TABLET BY MOUTH DAILY Quantity: 90 tab(s) Days Supply: 90 Refills: 0 Substitutions Allowed Notes from Pharmacy: [facility] 10-04-2023 Note From: [facility] [id number] To: Roscoe Stout MD Sent: October 01, 2023 9:43:02 PM [employer] Subject: Medication Management Due: October 02, 2023 12:04:49 AM [employer] On Hold Pending Signature Drug: atropine-diphenoxylate (Lomotil 2.5 mg-0.025 mg oral tablet), TAKE ONE TABLET BY MOUTH EVERY 12 HOURS NEEDED FOR LOOSE STOOL Quantity: 30 tab(s) Days Supply: 0 Refills: 1 Substitutions Allowed Notes from Pharmacy: Dispensed Drug: atropine-diphenoxylate (atropine-diphenoxylate 0.025 mg-2.5 mg oral tablet), TAKE ONE TABLET BY MOUTH EVERY 12 HOURS NEEDED FOR LOOSE STOOL Quantity: 30 tab(s) Days Supply: 15 Refills: 0 Substitutions Allowed Notes from Pharmacy: [facility] 08-25-2023 Note Entered by Cristel Lan on August 25, 2023 08:42:13 EDT From: Cristel Lan To: [facility] [id number] Sent: 08/25/2023 08:42:13 EDT Subject: Medication Management Submitted: Complete:ferrous sulfate (ferrous sulfate 325 mg (65 mg elemental iron) oral delayed release tablet) Signed by Cristel Lan 08/25/2023 08:42:00 EDT Approved with modifications: ferrous sulfate (FEROSUL 325 MG TABLET) TAKE ONE TABLET BY MOUTH DAILY Qty: 30 tab(s) Days Supply: 30 Refills: 0 Substitutions Allowed Route To Pharmacy - [facility] [id number] Signed by Cristel Lan Not Approved: proposal sent to physician ALPRAZolam (ALPRAZOLAM 0.5 MG TABLET) TAKE 1 TABLET BY MOUTH TWICE A DAY NEEDED FOR ANXIETY Qty: 60 tab(s) Days Supply: 30 Refills: 0 Substitutions Allowed [facility] [id number] Signed by Cristel Lan Patient matched by Cristel Lan on 08/25/2023 08:38:17 EDT From: [facility] [id number] To: Roscoe Stout MD Sent: August 24, 2023 5:30:45 PM CDT Subject: Medication Management Due: August 25, 2023 12:05:42 AM CDT On Hold Pending Signature Drug: ferrous sulfate (FeroSul 325 mg (65 mg elemental iron) oral tablet), TAKE ONE TABLET BY MOUTH DAILY Quantity: 30 tab(s) Days Supply: 0 Refills: 1 Substitutions Allowed Notes from Pharmacy: Dispensed Drug: ferrous sulfate (FeroSul 325 mg (65 mg elemental iron) oral tablet), TAKE ONE TABLET BY MOUTH DAILY Quantity: 30 tab(s) Days Supply: 30 Refills: 0 Substitutions Allowed Notes from Pharmacy: On Hold Pending Signature Drug: ALPRAZolam (ALPRAZolam 0.5 mg oral tablet), TAKE 1 TABLET BY MOUTH TWICE A DAY NEEDED FOR ANXIETY Quantity: 60 tab(s) Days Supply: 0 Refills: 1 Substitutions Allowed Notes from Pharmacy: Dispensed Drug: ALPRAZolam (ALPRAZolam 0.5 mg oral tablet), TAKE 1 TABLET BY MOUTH TWICE A DAY NEEDED FOR ANXIETY Quantity: 60 tab(s) Days Supply: 30 Refills: 0 Substitutions Allowed Notes from Pharmacy: [facility] 07-22-2023 Note Patient matched dago shaver Ave Palacios on 07/22/2023 15:59:08 EDT From: [facility] [id number] To: Roscoe Stout MD Sent: July 21, 2023 4:08:34 PM CDT Subject: Medication Management Due: July 22, 2023 12:04:39 AM CDT On Hold Pending Signature Drug: amLODIPine (amLODIPine 10 mg oral tablet), TAKE ONE TABLET BY MOUTH DAILY Quantity: 30 tab(s) Days Supply: 0 Refills: 0 Substitutions Allowed Notes from Pharmacy: Dispensed Drug: amLODIPine (amLODIPine 10 mg oral tablet), TAKE ONE TABLET BY MOUTH DAILY Quantity: 30 tab(s) Days Supply: 30 Refills: 0 Substitutions Allowed Notes from Pharmacy: On Hold Pending Signature Drug: tiZANidine (tiZANidine 4 mg oral tablet), TAKE ONE TABLET BY MOUTH EVERY NIGHT AT BEDTIME Quantity: 30 tab(s) Days Supply: 0 Refills: 0 Substitutions Allowed Notes from Pharmacy: Dispensed Drug: tiZANidine (tiZANidine 4 mg oral tablet), TAKE ONE TABLET BY MOUTH EVERY NIGHT AT BEDTIME Quantity: 30 tab(s) Days Supply: 30 Refills: 0 Substitutions Allowed Notes from Pharmacy: [facility] 06-11-2023 Note [id number] [facility] 06-07-[address]acios on June 07, 2023 11:16:46 EDT From: [facility] Palac[facility] To: [facility] [id number] Sent: 06/07/2023 11:16:46 EDT Subject: Medication Management Submitted: Complete:amLODIPine (amLODIPine 10 mg oral tablet) Signed by Ave Palacios 06/07/2023 11:16:00 EDT Submitted: Complete:tiZANidine (tiZANidine 4 mg oral tablet) Signed by Ave Palacios 06/07/2023 11:16:00 EDT Approved with modifications: amLODIPine (amLODIPine BESYLATE 10 MG TAB) TAKE ONE TABLET BY MOUTH DAILY Qty: 30 tab(s) Days Supply: 30 Refills: 0 Substitutions Allowed Route To Pharmacy - [facility] [id number] Signed by Ave Palacios Approved with modifications: tiZANidine (tiZANidine HCL 4MG TABLET) TAKE ONE TABLET BY MOUTH EVERY NIGHT AT BEDTIME Qty: 30 tab(s) Days Supply: 30 Refills: 0 Substitutions Allowed Route To Pharmacy - [facility] [id number] Signed by Ave Palacios From: [facility] [id number] To: Roscoe Stout MD Sent: June 06, 2023 1:32:40 PM CDT Subject: Medication Management Due: June 07, 2023 12:32:00 AM CDT On Hold Pending Signature Drug: amLODIPine (amLODIPine 10 mg oral tablet), TAKE ONE TABLET BY MOUTH DAILY Quantity: 30 tab(s) Days Supply: 0 Refills: 5 Substitutions Allowed Notes from Pharmacy: Dispensed Drug: amLODIPine (amLODIPine 10 mg oral tablet), TAKE ONE TABLET BY MOUTH DAILY Quantity: 30 tab(s) Days Supply: 30 Refills: 0 Substitutions Allowed Notes from Pharmacy: On Hold Pending Signature Drug: tiZANidine (tiZANidine 4 mg oral tablet), TAKE ONE TABLET BY MOUTH EVERY NIGHT AT BEDTIME Quantity: 30 tab(s) Days Supply: 0 Refills: 0 Substitutions Allowed Notes from Pharmacy: Dispensed Drug: tiZANidine (tiZANidine 4 mg oral tablet), TAKE ONE TABLET BY MOUTH EVERY NIGHT AT BEDTIME Quantity: 30 tab(s) Days Supply: 30 Refills: 0 Substitutions Allowed Notes from Pharmacy: [facility] Evaluation note Diagnosis Paroxysmal A-fib ([facility])- Primary Essential hypertension Unspecified essential hypertension documented in this encounter [facility] SystemInstructionsNot on filedocumented in this encounter [email or web address] SystemInstructionsNot on filedocumented in this encounter [email or web address] SystemInstructionsNot on filedocumented in this encounter [facility] Purpose Family History No Family History Records FoundNo Family History Records Found Advance Directives No Advanced Directives Records FoundNo Advanced Directives Records Found Additional Source Comments Care Teams (unrecognized sec tion and content) Rodeo Performer Relationship Specialty Start Date End Date Roscoe Stout MD [address] [place] [id number] PCP - General Family Medicine 11/13/21 Rodeo Performer Relationship Specialty Start Date End Date Roscoe Stout MD [address] [place] [id number] PCP - General Family Medicine 11/13/21 Rodeo Performer Relationship Specialty Start Date End Date Roscoe Stout MD [address] [place] [id number] PCP - General Family Medicine 11/13/21 Reason for Visit (unrecogniz ed section and content) Reason Comments Follow-up EST PT LS SM 2-LAB 11/2023 Hypertension Reason Onset Date Comments Eliquis 01/05/2024 INFORMATION SOURCE (unrecogn ized section and content) DATE CREATED AUTHOR 01/06/2024 [facility] DATE CREATED AUTHOR AUTHOR'S ORGANIZ ATION 05/23/2024 [facility] FOR RECORDS PERTAINING TO PATIENTS WHO ARE OR HAVE BEEN ENROLLED IN A CHEMICAL DEPENDENCY/SUBSTANCEABUSE PROGRAM, SOME INFORMATION MAY BE OMITTED. This clinical summary was aggregated from multiple sources. Caution should be exercised in using it in the provision of clinical care. This summary normalizes information from multiple sources, and as a consequence, information in this document may materially change the coding, format and clinical context of patient data. In addition, data may be omitted in some cases. CLINICAL DECISIONS SHOULD BE BASED ON THE PRIMARY CLINICAL RECORDS. [facility]. provides no warranty or guarantee of the accuracy or completeness of information in this document.
[2024-05-26] MEDS: 0.9 % SODIUM CHLORIDE 500 ML, LIDOCAINE HCL 20 ML, SODIUM BICARBONATE 10 MEQ INJ (13:07)
[2024-05-26] MEDS: LIDOCAINE HCL 1% 100 MG/10 ML MDV INJ (13:07)
--- NOTE | 2024-05-26 13:34 | VEINCLINIC_ITS ---
Vital Signs 05/26/24 09:43 Height 5 ft 4 in Weight 90.718 kg BMI 34.3 BP 122/70 BP Location Left Brachial BP Position Sitting BP Cuff Size Adult BP Source Manual Cuff Respiration 18 Pulse 67 Pulse Source Monitor Pulse Oximetry (%) 97 Oxygen Delivery Method Room Air Comment The patient's blood pressure is elevated. Varicose Veins Patient is in this day for EVLT of left GSV. Henrique Chahal MD personally performed the services described in this documentation, as scribed by Letty Trinh RVT, RDMS in my presence and it is both accurate and complete. Letty Chahal RVT, RDMS, am scribing for, and in the presence of, Dr. Henrique Santos and in the presence of the patient. thigh: bilateral, knee: bilateral, calf: bilateral, ankle: bilateral and yang: bilateral aching and burning 8 5 years Worsened in recent months: Yes standing analgesics (Tylenol), bed rest, elevating extremities, compression stockings and exercise Reports edema and leg edema Family history of varicose veins: yes Has patient had previous lower extremity venous surgery: No Patient has previously received the following treatment(s) for lower extremity varicose veins: Reports none Does patient have a history of : yes Does patient intend to have future pregnancies: no Has patient had lower extremity venous scan with relux testing: Yes Support hose used: Yes Problems walking or doing physical activity: No How does it affect you: Can't stand for long periods of time Do you walk much: Yes Do you stand much: Yes Medication compliance: good Review of Systems ROS Narrative Ruben Chahal MD personally performed the services described in this documentation, as scribed by Haylie Mazariegos RN in my presence and it is both accurate and complete. Haylie Chahal RN, am scribing for, and in the presence of, Dr. Ruben Weaver and in the presence of the patient. Status of ROS 10 or more systems reviewed and unremark able except as noted in history and below Cardiovascular Reports: edema and swelling of feet/ankles Musculoskeletal Reports: extremity pain, extremity swelling and muscle cramps Integumentary/Breast Reports: itching, sores and non-healing lesion [facility] Medical History (Updated 05/26/24 @ 09:44 by Haylie Mazariegos RN) Phlebitis and thrombophlebitis of superficial vessels of left lower extremity ?I80.02 - Phlebitis and thrombophlebitis of superficial vessels of left lower extremity (ICD-10) Left upper arm injury ?S49.92XA - Unspecified injury of left shoulder and upper arm, initial encounter (ICD-10) Iron deficiency ?E61.1 - Iron deficiency (ICD-10) Obesity ?E66.9 - Obesity, unspecified (ICD-10) Hypertension ?I10 - Essential (primary) hypertension (ICD-10) Atrial fibrillation ?I48.91 - Unspecified atrial fibrillation (ICD-10) Pain due to varicose veins of both lower extremities ?I83.813 - Varicose veins of bilateral lower extremities with pain (ICD-10) Surgical History (Updated 05/02/24 @ 07:47 by Haylie Mazariegos RN) History of cholecystectomy ?Z90.49 - Acquired absence of other specified parts of digestive tract (ICD- 10) History of appendectomy ?Z90.49 - Acquired absence of other specified parts of digestive tract (ICD- 10) History of tubal ligation ?Z98.51 - Tubal ligation status (ICD-10) H/O cardiac radiofrequency ablation ?Z98.890 - Other specified postprocedural states (ICD-10) Family History (Updated 05/02/24 @ 07:48 by Haylie Mazariegos RN) Father Family history of diabetes mellitus Family history of hypertension Mother Family history of hypertension Varicose veins of bilateral lower extremities with pain Grandmother Family history of stroke Social History (Updated 05/02/24 @ 07:49 by Haylie Mazariegos RN) Within the past year, how often did you have a drink containing alcohol: 2-4 times a month Smoking status: Never smoker Non-prescribed substance use: denies use Meds Home Medications and Allergies Home Medications ?Medication ?Instructions ?Recorded ?Confirmed ?Type alprazolam 0.5 mg tablet 0.5 mg PO DAILY 05/02/24 05/02/24 History amlodipine 10 mg tablet 10 mg PO DAILY 05/02/24 05/02/24 History apixaban 5 mg tablet (Eliquis) 5 mg PO BID 05/02/24 05/02/24 History cetirizine 10 mg tablet (24Hour 10 mg PO DAILY 05/02/24 05/02/24 History Allergy) hydroxyzine HCl 25 mg tablet 25 mg PO BID 05/02/24 05/02/24 History losartan 100 1 tab PO DAILY 05/02/24 05/02/24 History mg-hydrochlorothiazide 25 mg tablet (Hyzaar) phentermine 37.5 mg tablet 37.5 mg PO DAILY 05/02/24 05/02/24 History (Adipex-P) potassium chloride 20 mEq oral 20 meq PO DAILY 05/02/24 05/02/24 History packet (Klor-Con) tizanidine 4 mg capsule 4 mg PO BID PRN muscle spasticity 05/02/24 05/02/24 History Allergies Allergy/AdvReac Type Severity Reaction Status Date / Time acetaminophen [From Percocet] Allergy Unknown Verified 04/14/24 17:03 cefaclor [From Ceclor] Allergy Unknown Verified 04/14/24 17:03 oxycodone [From Percocet] Allergy Unknown Verified 04/14/24 17:03 sulfamethoxazole Allergy Unknown Verified 04/14/24 17:03 [From Bactrim] trimethoprim [From Bactrim] Allergy Unknown Verified 04/14/24 17:03 Exam Narrative Exam Narrative: IRuben MD personally performed the services described in this documentation, as scribed by Haylie Mazariegos RN in my presence and it is both accurate and complete. IHaylie RN, am scribing for, and in the presence of, Dr. Ruben Weaver and in the presence of the patient. Constitutional Documenting provider has reviewed patient's vital signs: yes Common normals: oriented x3 Nutritional appearance: overweight Lymph Lymphatic: no lymphedema noted Cardio Peripheral pulses: posterior tibial pulses present and dorsalis pedis pulses present Extremity General: calf tenderness, edema and other findings Right lower extremity: lower leg Right lower leg: inspection and palpation Left lower extremity: lower leg Left lower leg: inspection and palpation Neuro Common normals: oriented x3 Assessment and Plan Assessment and Plan (1) Pain due to varicose veins of both lower extremities: Plan Plan of care: Risks and benefits of the procedure were discussed at length and informed written consent was obtained.? Time-out completed for verification of correct patient, procedure and site.? Staff present during time-out: Haylie Mazariegos RN,? Ruben Weaver MD, [facility]. Time Out Time__1303 Patient prepped and procedure performed in usual sterile fashion. Risk of injury related to use of Diode laser and/or laser devices? __AG___ ? Serial number of laser used :? [id number] Control panel self test performed, electrical cords in good condition, floor is dry, basin of water available, fire extinguisher in close proximity_AG__ Polycarbonate goggles available and Laser warning signs outside of doors___AG___ Eye protection provided to patient and staff in room_AG___ Use of laser retardant drapes and dull blackened instruments as directed__AG___ Use of nonflammable prep solutions and use of saline soaked sponges to protect tissues as indicated _AG___ Length ____35____ cm Laser operated by ___Dr. Weaver Physician verbal confirmation laser locked in place__AG__ Laser start time (date and time) _05/26/24@1315 Laser stop time(date and time) _05/26/24@1320 Bello _8.0___ Average laser use ___1854____Joules Average laser use____232____seconds Pulse continuous ___AG_? Pulse intermittent ___ Amount of Tumescent used Evaluated patient for signs and symptoms of electrical injury __AG___ ? Skin clear at insertion site __AG___ Patient tolerated procedure well.? Left leg Coban dressing applied to access site.? Applied Left thigh high leg compression stocking. Will return on 05/29/24 for Left leg limited venous ultrasound and exam. IRuben MD personally performed the services described in this documentation, as scribed by Haylie Mazariegos RN in my presence and it is both accurate and complete. IHaylie RN, am scribing for, and in the presence of, Dr. Ruben Weaver and in the presence of the patient. Procedures Procedure Instructions Procedures EVLT of left GSV.
--- NOTE | 2024-05-26 13:38 | P.DS_ITS ---
Discharge Plan Discharge Disposition: Home, Self-Care Outpatient Diagnostics: [facility] EST LMTD (Routine) Timeframe: 2 Weeks Facility: [facility] - [facility] Ordered By: Ruben Weaver [facility] EXT Venous LT Limited (Routine) Timeframe: 2 Weeks Facility: [facility] - Location: [facility] Ordered By: Ruben Weaver Follow Up Appointments: 05/29/24 Patient Instructions: Endovenous Ablation (DC) Print Language: Persian Discharge Date/Time: 05/26/24 13:30
== END 2024-05-26 13:30 | disposition home or self-care (01) ==
LOC: VC 12:32
PROVIDERS: PCP Radiology Diagnostic Radiology; Visit Provider Radiology Diagnostic Radiology
DX: I83.813 Varicose veins of bilateral lower extremities with pain (principal)
CPT/HCPCS: 36478